=== PATIENT | female | born 1945 | race Caucasian/White ===

== ENCOUNTER 2019-07-04 08:54 | Outpatient (CLI) | payer MEDICARE, SELFPAY ==
[2019-07-04 09:08] LABS: Basophils Absolute Auto 0.1 K/mm3 (0.0-0.1); Basophils Percent Auto 0.3 % (0.2-1.2); Eosinophils Absolute Auto 0.5 K/mm3 (0-0.3); Eosinophils Percent Auto 2.5 % (0-4.4); Hematocrit 44.1 % (37.0-47.0); Hemoglobin 14.4 g/dL (12.0-15.0); Immature Granulocyte Absolute 0.06 K/mm3 (0.00-0.031); Immature Granulocyte Percent A 0.3 % (0-0.5); Lymphocytes Absolute Auto 12.85 K/mm3 (0.9-3.2); Lymphocytes Percent Auto 64.4 % (18.3-44.2); Mean Corpuscular HGB Conc 32.7 g/dl (32-36); Mean Corpuscular Hemoglobin 31.9 pg (26-34); Mean Corpuscular Volume 97.6 fl (80-100); Mean Platelet Volume 10.4 fl (7.4-10.4); Monocytes Absolute Auto 1.8 K/mm3 (0.1-0.6); Monocytes Percent Auto 9.2 % (2.6-8.5); Neutrophils Absolute Auto 4.6 K/mm3 (1.3-6.7); Neutrophils Percent Auto 23.3 % (45.5-73.1); Platelet Count Result 374 k/mm3 (150-375); Red Blood Count 4.52 M/mm3 (4.2-5.4); Red Cell Distribution Width 13.2 % (11.5-14.5)
[2019-07-04 09:15] LABS: Atypical Lymphocytes Present
[2019-07-04 11:01] LABS: Blood Urea Nitrogen 22 mg/dL (7-17); Calcium 10.2 mg/dL (8.4-10.2); Carbon Dioxide 24 mmol/L (22-30); Chloride 102 mmol/L (98-107); Estimated Glomerular Filt Rate > 60; Glucose 92 mg/dL (65-105); Lactate Dehydrogenase 374 U/L (313-618); Potassium 4.3 mmol/L (3.4-5.0); Sodium 141 mmol/L (137-145)
== END 2019-07-04 08:55 | disposition home or self-care (01) ==
LOC: ANHLAB 08:56
PROVIDERS: PCP Internal Medicine; Visit Provider Internal Medicine Hematology & Oncology
DX: R53.83 Other fatigue (principal)
CPT/HCPCS: 36415; 80048; 83615; 85025

== ENCOUNTER 2020-03-28 09:16 | Outpatient (CLI) | payer MEDICARE, SELFPAY ==
[2020-03-28 09:46] LABS: Basophils Absolute Auto 0.1 K/mm3 (0.0-0.1); Basophils Percent Auto 0.3 % (0.2-1.2); Eosinophils Absolute Auto 0.3 K/mm3 (0-0.3); Eosinophils Percent Auto 1.2 % (0-4.4); Hemoglobin 14.2 g/dL (12.0-15.0); Immature Granulocyte Absolute 0.04 K/mm3 (0.00-0.031); Immature Granulocyte Percent A 0.2 % (0-0.5); Lymphocytes Absolute Auto 15.18 K/mm3 (0.9-3.2); Lymphocytes Percent Auto 72.6 % (18.3-44.2); Mean Corpuscular Hemoglobin 32.7 pg (26-34); Mean Corpuscular Volume 99.1 fl (80-100); Mean Platelet Volume 10.4 fl (7.4-10.4); Monocytes Absolute Auto 1.6 K/mm3 (0.1-0.6); Monocytes Percent Auto 7.6 % (2.6-8.5); Neutrophils Absolute Auto 3.8 K/mm3 (1.3-6.7); Neutrophils Percent Auto 18.1 % (45.5-73.1); Platelet Count Result 392 k/mm3 (150-375); Red Blood Count 4.34 M/mm3 (4.2-5.4); Red Cell Distribution Width 13.2 % (11.5-14.5); White Blood Count 20.9 K/mm3 (4.5-10.0)
[2020-03-28 09:53] LABS: Atypical Lymphocytes Present
[2020-03-28 17:52] LABS: Alanine Aminotransferase 37 U/L (4-35); Albumin Level 4.3 g/dL (3.5-5.1); Alkaline Phosphatase 64 U/L (38-126); Anion Gap 10 mmol/L (8-16); Aspartate Amino Transferase 34 U/L (14-36); Bilirubin,Total 0.6 mg/dL (0.2-1.3); Blood Urea Nitrogen 18 mg/dL (7-17); Calcium 9.8 mg/dL (8.4-10.2); Carbon Dioxide 25 mmol/L (22-30); Chloride 106 mmol/L (98-107); Estimated Glomerular Filt Rate > 60; Glucose 80 mg/dL (65-105); Lactate Dehydrogenase 460 U/L (313-618); Potassium 4.6 mmol/L (3.4-5.0); Sodium 141 mmol/L (137-145)
== END 2020-03-28 09:17 | disposition home or self-care (01) ==
PROVIDERS: PCP Internal Medicine; Visit Provider Internal Medicine Hematology & Oncology
DX: C91.11 Chronic lymphocytic leukemia of B-cell type in remission (principal)
CPT/HCPCS: 36415; 80053; 83615; 85025

== ENCOUNTER 2021-01-15 09:40 | Outpatient (CLI) | payer MEDICARE, SELFPAY ==
[2021-01-15 09:56] LABS: Basophils Absolute Auto 0.1 K/mm3 (0.0-0.1); Basophils Percent Auto 0.4 % (0.2-1.2); Eosinophils Absolute Auto 0.4 K/mm3 (0-0.3); Eosinophils Percent Auto 1.7 % (0-4.4); Hematocrit 42.7 % (37.0-47.0); Hemoglobin 14.1 g/dL (12.0-15.0); Immature Granulocyte Absolute 0.06 K/mm3 (0.00-0.031); Immature Granulocyte Percent A 0.3 % (0-0.5); Lymphocytes Absolute Auto 15.11 K/mm3 (0.9-3.2); Lymphocytes Percent Auto 66.4 % (18.3-44.2); Mean Corpuscular Hemoglobin 32.4 pg (26-34); Mean Corpuscular Volume 98.2 fl (80-100); Mean Platelet Volume 9.9 fl (7.4-10.4); Monocytes Percent Auto 8.7 % (2.6-8.5); Neutrophils Absolute Auto 5.1 K/mm3 (1.3-6.7); Neutrophils Percent Auto 22.5 % (45.5-73.1); Platelet Count Result 383 k/mm3 (150-375); Red Blood Count 4.35 M/mm3 (4.2-5.4); Red Cell Distribution Width 13.3 % (11.5-14.5); White Blood Count 22.7 K/mm3 (4.5-10.0)
[2021-01-15 10:02] LABS: Atypical Lymphocytes Present
[2021-01-15 20:48] LABS: Alanine Aminotransferase 29 U/L (4-35); Albumin Level 4.2 g/dL (3.5-5.1); Alkaline Phosphatase 69 U/L (38-126); Anion Gap 8 mmol/L (8-16); Aspartate Amino Transferase 27 U/L (14-36); Bilirubin,Total 0.6 mg/dL (0.2-1.3); Blood Urea Nitrogen 19 mg/dL (7-17); Carbon Dioxide 24 mmol/L (22-30); Chloride 107 mmol/L (98-107); Estimated Glomerular Filt Rate > 60; Glucose 91 mg/dL (65-110); Lactate Dehydrogenase 393 U/L (313-618); Potassium 4.2 mmol/L (3.4-5.0); Sodium 139 mmol/L (137-145)
== END 2021-01-15 09:41 | disposition home or self-care (01) ==
PROVIDERS: PCP Internal Medicine; Visit Provider Internal Medicine Hematology & Oncology
DX: C91.10 Chronic lymphocytic leukemia of B-cell type not having achieved remission (principal)
CPT/HCPCS: 36415; 80053; 83615; 85025

== ENCOUNTER 2021-10-11 09:07 | Outpatient (CLI) | payer MEDICARE, SELFPAY ==
[2021-10-11 09:44] LABS: Basophils Absolute Auto 0.1 K/mm3 (0.0-0.1); Basophils Percent Auto 0.3 % (0.2-1.2); Eosinophils Absolute Auto 0.3 K/mm3 (0-0.3); Eosinophils Percent Auto 1.2 % (0-4.4); Hematocrit 40.3 % (37.0-47.0); Hemoglobin 12.9 g/dL (12.0-15.0); Immature Granulocyte Absolute 0.07 K/mm3 (0.00-0.031); Immature Granulocyte Percent A 0.3 % (0-0.5); Lymphocytes Absolute Auto 18.03 K/mm3 (0.9-3.2); Lymphocytes Percent Auto 67.7 % (18.3-44.2); Mean Corpuscular Hemoglobin 31.4 pg (26-34); Mean Corpuscular Volume 98.1 fl (80-100); Mean Platelet Volume 9.5 fl (7.4-10.4); Monocytes Percent Auto 11.2 % (2.6-8.5); Neutrophils Absolute Auto 5.2 K/mm3 (1.3-6.7); Neutrophils Percent Auto 19.3 % (45.5-73.1); Platelet Count Result 484 k/mm3 (150-375); Red Blood Count 4.11 M/mm3 (4.2-5.4); Red Cell Distribution Width 13.4 % (11.5-14.5); White Blood Count 26.6 K/mm3 (4.5-10.0)
[2021-10-11 11:30] LABS: Alanine Aminotransferase 17 U/L (6-35); Albumin Level 4.1 g/dL (3.5-5.1); Alkaline Phosphatase 77 U/L (38-126); Anion Gap 8 mmol/L (8-16); Aspartate Amino Transferase 25 U/L (14-36); Bilirubin,Total 0.4 mg/dL (0.2-1.3); Blood Urea Nitrogen 18 mg/dL (7-17); Calcium 10.2 mg/dL (8.4-10.2); Carbon Dioxide 26 mmol/L (22-30); Chloride 107 mmol/L (98-107); Estimated Glomerular Filt Rate > 60; Glucose 96 mg/dL (65-110); Lactate Dehydrogenase 352 U/L (313-618); Potassium 4.3 mmol/L (3.4-5.0); Sodium 141 mmol/L (137-145)
== END 2021-10-11 09:08 | disposition home or self-care (01) ==
LOC: ANHLAB 09:10
PROVIDERS: PCP Internal Medicine; Visit Provider Internal Medicine Hematology & Oncology
DX: C91.10 Chronic lymphocytic leukemia of B-cell type not having achieved remission (principal)
CPT/HCPCS: 36415; 80053; 83615; 85025

== ENCOUNTER 2021-10-21 11:28 | Outpatient (CLI) | payer MEDICARE, SELFPAY ==
--- NOTE | 2021-10-21 11:33 | ECG_ITS ---
Measurements Intervals [place] Rate: 95 P: 63 SD: 151 QRS: -47 QRSD: 95 T: 64 QT: 331 QTc: 418 Interpretive Statements SINUS RHYTHM LEFT ANTERIOR FASCICULAR BLOCK [QRS AXIS <= -45, QR IN I, RS IN II] LEFT VENTRICULAR HYPERTROPHY AND ST-T CHANGE [VOLTAGE CRITERIA PLUS ST/T ABNORMALITY] NO PREVIOUS ECG AVAILABLE FOR COMPARISON Electronically Signed On 10-21-2021 16:29:52 CDT by Dawood Sen M.D.
[2021-10-21 12:11] LABS: INR 1.1; Partial Thromboplastin Time 26.9 SECONDS (22.3-36.8); Prothrombin Time 13.4 Seconds (11.1-14.7)
== END 2021-10-21 11:29 | disposition home or self-care (01) ==
LOC: ANHSURGERY 11:31
PROVIDERS: PCP Internal Medicine; Visit Provider Surgery
DX: C91.10 Chronic lymphocytic leukemia of B-cell type not having achieved remission (principal); I10 Essential (primary) hypertension; Z01.818 Encounter for other preprocedural examination; I44.4 Left anterior fascicular block
CPT/HCPCS: 36415; 85610; 85730; 93005

== ENCOUNTER 2021-10-23 01:29 | Day surgery (SDC) | payer MEDICARE, SELFPAY ==
[2021-10-21 08:58] VITALS: BMI 36.3
--- NOTE | 2021-10-21 09:15 | PC.NURSE ---
Report to the Outpatient Waiting Room, entrance under the green pavilion located off [facility], at time __1:00PM on date _10/23/21 . OR Time: _3:00PM . - You and your visitor will be asked a series of questions to screen for COVID 19 for your protection. - Only one visitor is allowed at this time. - The patient visitor is requested to leave or wait in car when not with patient. - A mask is required within the hospital. Patients may have clear liquids (water, carbonated beverages, clear teas, apple juice) until 3 hours prior to surgery with a maximum of 20 ounces. - No food from midnight until time of surgery - Infants may have breast milk until 4 hours before surgery, formula 6 hours prior to surgery. - Children will be allowed to drink immediately following surgery. If applicable, please bring a bottle or sippy cup to assist with drinking. Juice, water, soda, and popsicles are readily available. For infants on formula, please bring formula the day of surgery. Pacifiers are allowed. Take the following medications with a SIP of water the morning of surgery: ____TRAMADOL NEEDED Medications to discontinue per physician ____HOLD VITAMINS/SUPPLEMENTS 3 DAYS PRE-OP Date to take last dose___10/20/21 Please no make-up, nail mongolian, hairspray, perfume, deodorant, or body powder the day of surgery. No jewelry (including any body piercings) or valuables the day of surgery, leave them at home. Please take a shower or bath the night before, or the morning of, surgery with an antibacterial soap. Wear comfortable, loose fitting clothing. Children are encouraged to wear pajamas. - Jewelry must be removed prior to entering the operating room. Rings and piercings that are not removed may be cut off. - The hospital will not accept responsibility for valuables. - Please leave all valuables, including medications, at home the day of surgery. If you are going home after surgery, a licensed patrol driver must drive you home. - NO public transportation without another adult. - We recommend that an adult stay with you for 24 hours following discharge. - We also recommend that you do not drive, make important decision, drink alcoholic beverages, or take any drugs that were not prescribed by your health care provider for at least 24 hours after your discharge time. For Pediatric surgeries, we recommend two adults accompany the child home (only one inside the building at this time). Follow any additional instructions given to you from your surgeon. If you or anyone in your household have experienced Covid symptoms in the past week, please notify your surgeon or the nurse liaison at the phone number below for possible testing. Telephone instructions given to __PATIENT and asked if any additional questions and then verbalized understanding. Patient advised to call surgeon office or pre surgery nurse liaison [phone] if any additional questions.
--- NOTE | 2021-10-22 09:28 | WPDANESEPPF ---
Anes - Initial Pre Proc Eval Procedure: Operation Date: 10/23/21 15:00 Proposed Procedures p Insertion Rufina Cath - Ashlee Moon MD Date/Time: 10/22/21 09:28 Surgeon: Ashlee Moon MD Pre Op Diagnosis: Chronic Lymphocytic Leukemia Patient Data Age: 76 Gender: F Height: 1.63 m Weight: 96 kg Allergies Allergy/AdvReac Type Severity Reaction Status Date / Time No Known Allergies Allergy Verified 10/23/21 13:11 Home Medications Medication Instructions Recorded Confirmed Type acetaminophen 650 mg 1,300 mg PO Q12H PRN Pain 10/21/21 10/23/21 History tablet,extended release aspirin 81 mg tablet,delayed 81 mg PO DAILY 10/21/21 10/23/21 History release (Adult Low Dose Aspirin) cholecalciferol (vitamin D3) 100 100 mcg PO DAILY 10/21/21 10/23/21 History mcg (4,000 unit) tablet cyanocobalamin (vitamin B-12) 2,500 mcg PO DAILY 10/21/21 10/23/21 History 2,500 mcg tablet losartan 100 mg tablet 1 tablet PO QAM 10/21/21 10/23/21 History meloxicam 15 mg tablet 1 tablet PO QACLUNCH PRN Pain 10/21/21 10/23/21 History tramadol 50 mg tablet 1 tablet PO Q6-8H PRN Pain 10/21/21 10/23/21 History Patient hx anesthesia problems: none Family hx anesthesia problems: none Results Review: All pre-operative results and documents have been reviewed as part of the pre-operative evaluation. [facility] Past Medical History Medical History CLL (chronic lymphocytic leukemia) Surgical History Surgical History History of tubal ligation Social History Social History Smoking packs per day: 1 Smoking cigarettes per day: 20.0 Years smoked: 55 Smoking pack-years: 55.00 Smoking status: Current every day smoker Tobacco type: cigarettes Additional smoking assessment comments: CUTTING BACK TO 4 CIG/DAY CURRENTLY Substance use: never Additional living arrangements comments: HUSB Spiritual care concerns: No Anes - Eval Final PreProcedure Day of Procedure 10/22/21 09:28 Patient weight: obese Heart: regular rate and rhythm Lungs: clear to auscultation Airway: Mallampati scale class II Neurological: alert and oriented Last oral intake: >/= 8 hours ASA classification: III Emergent: no Anesthetic plan: proceed Anesthesia type and monitoring: general GIVS and standard monitoring Results Review: All pre-operative results and documents have been reviewed as part of the pre-operative evaluation. Informed Consent: The patient's anesthetic plan and its attendant risks and benefits were discussed with the patient/family/POA. Questions were solicited and answers provided to the satisfaction of the patient/family/POA.
--- NOTE | ~2021-10-23 | XR_ITS ---
EXAMINATION: XR fl guide central line place DATE: 10/23/2021 14:52 INDICATION: Port placement. TECHNIQUE: 3 intraoperative fluoroscopic views of the chest were obtained. I was not present. Fluoros copy exposure time was 20 seconds. COMPARISON: Chest single view 10/23/2021 FINDINGS: There is a right internal jugular port with tip in right atrium. IMPRESSION: 1. Port tip in right atrium. Reviewed, dictated and finalized at location B.
--- NOTE | ~2021-10-23 | XR_ITS ---
EXAMINATION: XR chest port-a-cath/central DATE: 10/23/2021 15:06 INDICATION: Port placement. TECHNIQUE: A single frontal view of the chest was obtained. COMPARISON: Chest CT 03/30/2017, chest 2 views 08/26/2004 FINDINGS: There is no pneumonia, pleural effusion, pneumothorax. There is a right internal jugular po rt with tip in superior vena cava. IMPRESSION: 1. Port tip in superior vena cava. Reviewed, dictated and finalized at location B.
--- NOTE | 2021-10-23 12:54 | PM.IMHP ---
H&P: HPI History of Present Illness Date/Time: 10/23/21 12:54 Chief Complaint: CLL Narrative: Pt is a 76 y/o F presenting for VAD placement in anticipation of chemotherapy for worsening CLL. Pt dx'd in 2017 but recently c increased symptomatology and size of lymphadenopathy. Pt denies any previous central venous catheterization. Pt reports worse lymphadenopathy located in L neck, axilla. Review of Systems Review of Systems: All systems reviewed & are unremarkable except as noted in HPI and below PMFSH Past Medical History Medical History CLL (chronic lymphocytic leukemia) Surgical History Surgical History History of tubal ligation Social History Social History Smoking packs per day: 1 Smoking cigarettes per day: 20.0 Years smoked: 55 Smoking pack-years: 55.00 Smoking status: Current every day smoker Tobacco type: cigarettes Additional smoking assessment comments: CUTTING BACK TO 4 CIG/DAY CURRENTLY Substance use: never Living arrangements: with family Additional living arrangements comments: HUSB Spiritual care concerns: No Meds Home Medications and Allergies Home Medications Medication Instructions Recorded Confirmed Type acetaminophen 650 mg 1,300 mg PO Q12H PRN Pain 10/21/21 10/21/21 History tablet,extended release aspirin 81 mg tablet,delayed 81 mg PO DAILY 10/21/21 10/21/21 History release (Adult Low Dose Aspirin) cholecalciferol (vitamin D3) 100 100 mcg PO DAILY 10/21/21 10/21/21 History mcg (4,000 unit) tablet cyanocobalamin (vitamin B-12) 2,500 mcg PO DAILY 10/21/21 10/21/21 History 2,500 mcg tablet losartan 100 mg tablet 1 tablet PO QAM 10/21/21 10/21/21 History meloxicam 15 mg tablet 1 tablet PO QACLUNCH PRN Pain 10/21/21 10/21/21 History tramadol 50 mg tablet 1 tablet PO Q6-8H PRN Pain 10/21/21 10/21/21 History Allergies Allergy/AdvReac Type Severity Reaction Status Date / Time No Known Allergies Allergy Verified 10/21/21 08:53 Exam Const: General: cooperative, comfortable, no acute distress and ill appearing Orientation/consciousness: patient oriented x3 HENMT: Head: normal to inspection Neck: Neck: normal visual inspection, full ROM and lymphadenopathy Chest: Chest palpation & inspection: normal inspection of the chest Resp: Auscultation: clear to auscultation bilaterally Cardio: Rate: regular rate Rhythm: regular rhythm GI: Inspection: normal to inspection GI Palp: No abdominal tenderness and Yes Soft to palpation Assessment and Plan Assessment and plan (1) CLL (chronic lymphocytic leukemia): Code(s): C91.10 - Chronic lymphocytic leukemia of B-cell type not having achieved remission Status: Acute Assessment and Plan: will place VAD for chemo access
--- NOTE | 2021-10-23 12:58 | WPDHPUPDATE1 ---
History and Physical Update Update Date/Time: 10/23/21 12:58 History and Physical has been reviewed, including an updated exam of the patient. There are NO changes in the patient's condition. Risks, benefits, and alternatives have been discussed and questions answered. Patient agrees to proceed with procedure.
[2021-10-23 13:02] VITALS: BP 115/57; PULSE 88; RESP 16; TEMP 37; O2SAT 96
[2021-10-23] MEDS: LACTATED RINGERS 1,000 ML 30 ML IV CONT (13:20)
[2021-10-23] MEDS: KETOROLAC 15 MG/ML VIAL (*BKC) IV PUSH (13:25)
[2021-10-23] MEDS: BUPIVACAINE HCL 0.5% PF 30 ML VIAL INFILTRATE (14:14)
[2021-10-23] MEDS: ceFAZolin 2 GM/D5W 50 ML 2 GM/50 ML BAG IVPB (14:14)
[2021-10-23] MEDS: HEPARIN SODIUM, PORCINE 10,000 UNITS/10 ML VIAL 4000 UNITS IV PUSH (14:14)
[2021-10-23] MEDS: HEPARIN SODIUM 5,000 UNITS/ML VIAL 5000 UNITS IRRIGATION (14:14)
--- NOTE | 2021-10-23 14:47 | W.PM.PROC2 ---
Procedure Note - Detailed Date of Procedure 10/23/21 Pre-op Diagnosis Chronic Lymphocytic Leukemia Post-op Diagnosis Same Procedure Performed placement of right internal jugular venous access device under both ultrasound and fluroscopic guidance Surgeon Ashlee Moon MD Anesthesia MAC and Local Indications 76 y/o F c CLL needing access for chemotx Findings 1st stick RIJ under U/S guidance Description of Procedure Patient was brought into the operating room and placed in the supine position. After adequate induction of mac anesthesia, the patient was prepped and draped in normal sterile fashion. Time-out was then done to verify the patient's identity, as well as the procedure being performed. I used the ultrasound to gain access into the right internal jugular vein. Once access was gained, I placed the guidewire in the vein and confirmed proper positioning using fluoroscopy. I then locally anesthetized an area in the right chest. I then made an incision including making a subcutaneous pocket inferiorly to allow placement of the port itself. I proceeded to tunnel the catheter from the chest to the right neck insertion site. I then placed a dilating sheath over the guidewire into the right internal jugular vein via sterile Seldinger technique. This was once again done and confirmed via fluoroscopic guidance. I then removed the dilator and the guidewire, now just leaving the sheath in the vein. I then fed the previously flushed catheter into the right internal jugular vein under fluoroscopic guidance. At approximately 25 cm, the catheter was noted to be near the atrial caval junction. I then peeled away the sheath, now just leaving the catheter in the vein. I then was able to easily draw and flush from the catheter. The catheter was cut to fit and attached to the port itself. The port was placed into the previously made subcutaneous pocket and sutured in with 0 Ethibond suture. Final fluoroscopic view showed the termination of the catheter at the atrial caval junction with a nice smooth curvature back to the port itself. I was able to gain access to the port with a Herring needle and was able to easily draw and flush from the port. I then flushed 4 cc of a final heparin flush into the port. The incision was closed with 3 0 Vicryl suture in the subcutaneous tissue and the skin was closed with 4 O Monocryl subcuticular suture. Dermabond was then placed on wound. The patient tolerated the procedure well and will be sent to the recovery room in stable condition. Implants RIJ VAD Estimated Blood Loss 10 Pathology None sent Complications No immediate complications Condition Stable Disposition PACU [facility] Billing Surgery - Charge Forward: Surgery Billing
[2021-10-23 14:53] VITALS: BP 104/44; PULSE 80; RESP 14; O2SAT 98
[2021-10-23 15:23] VITALS: BP 106/85; PULSE 68; RESP 16
[2021-10-23 15:53] VITALS: BP 106/61; PULSE 66; RESP 16
== END 2021-10-23 16:00 | disposition home or self-care (01) ==
PROVIDERS: PCP Internal Medicine; Visit Provider Surgery
PROC: (CPT 36561; principal; 2021-10-23 15:00)
DX: C91.10 Chronic lymphocytic leukemia of B-cell type not having achieved remission (principal); F17.210 Nicotine dependence, cigarettes, uncomplicated; Z79.82 Long term (current) use of aspirin; E66.9 Obesity, unspecified; Z68.35 Body mass index [BMI] 35.0-35.9, adult
CPT/HCPCS: 36561; 36415; 77001; 85610; 85730; 93005; C1788; J0690; J1644; J1885; J2704; J3010; J7030; J7120

== ENCOUNTER 2022-03-07 14:16 | Outpatient (CLI) | payer MEDICARE, MEDICAID, SELFPAY ==
--- NOTE | 2022-03-07 | ECG_ITS ---
Measurements Intervals [place] Rate: 119 P: 54 NM: 120 QRS: -57 QRSD: 92 T: 76 QT: 306 QTc: 431 Interpretive Statements SINUS TACHYCARDIA PATTERN CONSISTENT WITH PULMONARY DISEASE INCOMPLETE RIGHT BUNDLE BRANCH BLOCK LEFT ANTERIOR FASCICULAR BLOCK NONSPECIFIC ST & T-WAVE ABNORMALITY ABNORMAL ECG COMPARED TO ECG 10/21/2021 11:53:12 HEART RATE HAS INCREASED Electronically Signed On 03-07-2022 17:05:09 CDT by Mynor Pina M.D.
--- NOTE | ~2022-03-07 | XR_ITS ---
XR chest 2V 03/07/2022 16:24 Indication: Tachycardia Procedure: 2 view chest Comparison: 10/23/2021 Findings: Heart size normal. Portacatheter tip in the SVC. Heart size normal. No focal air space dise ase, pulmonary edema, pleural effusion or suspected pneumothorax. Impression: 1: No acute cardiopulmonary disease. Reviewed, dictated and finalized at location B. Impression: 1: No acute cardiopulmonary disease.
--- NOTE | 2022-03-08 | ECHO_ITS ---
Patient Info Name: Cassandra Valdivia Age: 77 years : 1945 Gender: Female Ht: 64 in Wt: 187 lbs BSA: 1.99 m2 HR: 102 bpm BP: 108 / 70 mmHg Technical Quality: Fair Exam Date: 03/07/2022 3:35 PM Exam Location: [facility] Patient Status: Outpatient Admit Date: 03/07/2022 Staff Ordering Physician: Sj Mcmanus MD Employee Relations Director: Olivia Alvarez RDCS Attending Provider: Sj Mcmanus MD Referring Physician: Mareitta SARABIA; Exam Type: CA echo doppler color flow Study Info Indications - TACHYCARDIA SOB Complete two-dimensional, color flow and Doppler transthoracic echocardiogram is performed. Summary 1. Complete two-dimensional, color flow and Doppler transthoracic echocardiogram is performed. 2. Left ventricular chamber dimension is normal. 3. Left ventricular systolic function is normal, estimated at 60-65%. 4. Left ventricular septal wall motion is abnormal with septal motion related to bundle branch block. 5. The left ventricular diastolic function is grade I diastolic dysfunction. 6. E/e' 7 is not elevated. 7. There is mild aortic valve sclerosis. 8. No pulmonary hypertension, estimated pulmonary arterial systolic pressure is 31 mmHg. Left Ventricle E/e' 7 is not elevated. Left ventricular chamber dimension is normal. Left ventricular systolic function is normal, estimated at 60-65%. Left ventricular septal wall motion is abnormal with septal motion related to bundle branch block. The left ventricular diastolic function is grade I diastolic dysfunction. Right Ventricle Right ventricular chamber dimension is normal. Right ventricular systolic function is normal. Left Atria Left atrial chamber dimension is normal. Right Atria Right atrial chamber dimension is normal. Aortic Valve The aortic valve is trileaflet. There is mild aortic valve sclerosis. There is no aortic valve stenosis. There is no aortic valve regurgitation. Pulmonic Valve There is no pulmonic regurgitation. Mitral Valve There is no mitral valve stenosis. There is no mitral valve regurgitation. Tricuspid Valve There is no tricuspid valve regurgitation. No pulmonary hypertension, estimated pulmonary arterial systolic pressure is 31 mmHg. Pericardium/Pleural There is no pericardial effusion. Inferior Vena Cava Normal inferior vena cava with >50% collapse upon inspiration consistent with normal right atrial pressure, 5 mmHg. Aorta The aortic root size at the sinus of Valsalva is normal. Left Ventricular Outflow Tract Name Value Normal LVOT 2D LVOT Diameter 2.0 cm LVOT Doppler LVOT Peak Gradient 6 mmHg LVOT Mean Gradient 3 mmHg LVOT VTI 19 cm LVOT VTI/AV VTI Ratio 0.8 LVOT Stroke Volume 58 ml LVOT CO 15.1 l/min LVOT CI 7.6 l/min/m2 Pulmonic Valve Name Value
== END 2022-03-07 14:17 | disposition home or self-care (01) ==
PROVIDERS: PCP Family Medicine; Visit Provider Internal Medicine Hematology & Oncology
DX: R00.0 Tachycardia, unspecified (principal); R06.02 Shortness of breath; I35.8 Other nonrheumatic aortic valve disorders; I44.7 Left bundle-branch block, unspecified; R94.31 Abnormal electrocardiogram [ECG] [EKG]
CPT/HCPCS: 71046; 93005; 93306

== ENCOUNTER 2022-03-30 20:27 | Inpatient (IN) | payer MEDICARE, MEDICAID, SELFPAY ==
[2022-03-30] VITALS (19 sets, daily range): BP systolic 97–138; BP diastolic 46–65; PULSE 91–114; RESP 20–32; TEMP 37.4; O2SAT 95–98
--- NOTE | ~2022-03-30 | US_ITS ---
EXAMINATION: US biopsy liver DATE: 04/01/2022 14:12 INDICATION: Multiple liver masses concerning for metastatic disease. TECHNIQUE: The procedure including the risks and benefits was discussed with the patient. Risks discu ssed included bleeding and infection. The patient understood the risks and agreed to proceed. The sk in overlying the anterior liver was prepped and draped in usual sterile fashion. Anesthetic was admi nistered with 1% lidocaine subcutaneously. An 18 gauge core biopsy needle was advanced under continu ous ultrasound observation to the lesion of interest. 4 core biopsy specimens were obtained. The ne edle was removed and the entry site was cleaned and dressed. Post procedure ultrasound demonstrated no hemorrhage. FINDINGS: Ultrasound images demonstrate the needle was advanced into a 2.7 cm bilobed mass in the med ial segment of the right hepatic lobe. IMPRESSION: 1. Successful Ultrasound-guided biopsy of 2.7 cm hypoechoic liver mass. Reviewed, dictated and finalized at location A. ITURE SANDER
--- NOTE | ~2022-03-30 | CT_ITS ---
EXAMINATION: CTA chest PE abdomen pel DATE: 03/30/2022 22:06 INDICATION: Shortness of breath. Left lower quadrant abdominal pain. Leukemia. TECHNIQUE: Computed tomography angiography (CTA) of the chest was performed with 100 mL Omnipaque-350 intravenous contrast timed to evaluate the pulmonary arteries. Coronal maximum intensity projection 3D-reconstructions were created by the technologist. Computed tomography (CT) of the abdomen and pelv is was performed with intravenous contrast. Automated exposure control and iterative reconstruction t echnique were employed. The dose-length product was 1265.91 mGy-cm. COMPARISON: CT 04/07/2017 FINDINGS: CTA chest: There is mild atelectasis bilaterally. No pleural effusion. There is a right internal jugu lar port with tip at superior cavoatrial junction. The heart size is normal. There are coronary arter y calcifications. No pericardial fusion. There are acute pulmonary emboli in all right lung lobes inc luding in distal right main pulmonary artery. CT abdomen and pelvis: There are cysts in the liver measuring up to 5.6 cm. There are greater than 10 hypodense masses in the liver measuring up to 3.0 cm. There are 3 masses in the spleen measuring up to 1.7 cm. The gallbladder is normal. Calcifications in the pancreas are consistent with old granulom atous disease. The adrenal glands are normal. There are cysts in the kidneys measuring up to 10 mm on the right. There is mild left hydronephrosis and hydroureter. Pelvic floor dysfunction is noted. The re is thickening of the endometrial complex to 11 mm. There is diverticulosis of the colon without ev idence of diverticulitis. The appendix is normal. There is irregular wall thickening of the right col on and ileocecal valve. There is moderate stenosis of celiac axis and superior mesenteric artery. The re is ileocolic lymphadenopathy with the largest node measuring 4.9 x 3.0 cm. There is a lipoma in le ft posterior thigh. There is lumbar dextroscoliosis and severe spondylosis. IMPRESSION: 1. Acute right-sided pulmonary emboli. 2. Irregular wall thickening of the right colon and ileocecal valve, consistent with primary adenocar cinoma. 3. Ileocolic lymphadenopathy and liver masses, consistent with metastatic disease. 4. Peripheral splenic masses measuring up to 1.7 cm, likely infarcts. 5. Mild left hydronephrosis and hydroureter. 6. Thickening of the endometrial complex. The differential diagnosis includes endometrial hyperplasia , polyp, and carcinoma. Reviewed, dictated and finalized at location A. CREW SUPERVISOR IMPRESSION: 1. Acute right-sided pulmonary emboli. 2. Irregular wall thickening of the right colon and ileocecal valve, consistent with primary adenocarcinoma. 3. Ileocolic lymphadenopathy and liver masses, consistent with metastatic disea se. 4. Peripheral splenic masses measuring up to 1.7 cm, likely infarcts. 5. Mild left hydronephrosis and hydroureter. 6. Thickening of the endometrial complex. The differential diagnosis includes e ndometrial hyperplasia, polyp, and carcinoma.
--- NOTE | ~2022-03-30 | US_ITS ---
US renal BI 04/01/2022 11:26 Procedure: Realtime transabdominal ultrasound of the kidneys and bladder. Indication: Left hydronephrosis Comparison: CT dated 03/30/2022 Findings: Renal echotexture is normal bilaterally without hydronephrosis, contour deforming mass or r enal calculus. The right kidney measures 10.8 cm and left kidney measures 10.4 cm. Bladder within no rmal limits. Impression: 1: Unremarkable renal ultrasound. No stones, masses or hydronephrosis. Reviewed, dictated and finalized at location B. [employer] P[employer]GAR Impression: 1: Unremarkable renal ultrasound. No stones, masses or hydronephrosis.
--- NOTE | ~2022-03-30 | US_ITS ---
EXAMINATION: US venous doppler [facility] DATE: 03/31/2022 09:58 INDICATION: Acute pulmonary emboli. TECHNIQUE: Grayscale ultrasound images without and with compression and Doppler ultrasound images of the bilateral lower extremity veins were obtained. COMPARISON: None. FINDINGS: The visualized portions of right profunda (deep) femoral vein, femoral vein, popliteal vein, and post erior tibial veins are patent. There is thrombus in right common femoral and peroneal veins. There is thrombus in the left common femoral vein, profunda femoral vein, femoral vein, popliteal vei n, and peroneal and posterior tibial veins IMPRESSION: 1. Deep vein thrombosis in the lower limbs, left worse than right. Reviewed, dictated and finalized at location A. VISITS NURSE
--- NOTE | 2022-03-30 20:34 | ECG_ITS ---
Measurements Intervals [place] Rate: 107 P: 41 WI: 116 QRS: -48 QRSD: 97 T: 82 QT: 244 QTc: 326 Interpretive Statements SINUS TACHYCARDIA WITH SHORT WI INTERVAL LOW QRS VOLTAGE IN PRECORDIAL LEADS INCOMPLETE RIGHT BUNDLE BRANCH BLOCK LEFT ANTERIOR FASCICULAR BLOCK BORDERLINE ST-T WAVE ABNORMALITY- HIGH LATERAL LEADS BASELINE ARTIFACT- I, II, V5 ABNORMAL ECG COMPARED TO ECG 03/07/2022 14:58:23 NO SIGNIFICANT CHANGES Electronically Signed On 04-01-2022 13:54:20 CRANBERRY GROWER by Brown Padilla D.O.
[2022-03-30 21:02] LABS: Basophils Percent Auto 0.4 % (0.2-1.2); Eosinophils Absolute Auto 0.1 K/mm3 (0-0.3); Hematocrit 30.1 % (37.0-47.0); Hemoglobin 9.6 g/dL (12.0-15.0); Immature Granulocyte Absolute 0.06 K/mm3 (0.00-0.031); Immature Granulocyte Percent A 0.7 % (0-0.5); Lymphocytes Absolute Auto 0.32 K/mm3 (0.9-3.2); Lymphocytes Percent Auto 3.9 % (18.3-44.2); Mean Corpuscular HGB Conc 31.9 g/dl (32-36); Mean Corpuscular Hemoglobin 30.4 pg (26-34); Mean Corpuscular Volume 95.3 fl (80-100); Mean Platelet Volume 9.1 fl (7.4-10.4); Monocytes Percent Auto 0.2 % (2.6-8.5); Neutrophils Absolute Auto 7.6 K/mm3 (1.3-6.7); Neutrophils Percent Auto 93.8 % (45.5-73.1); Platelet Count Result 367 k/mm3 (150-375); Red Blood Count 3.16 M/mm3 (4.2-5.4); Red Cell Distribution Width 14.5 % (11.5-14.5); White Blood Count 8.1 K/mm3 (4.5-10.0)
[2022-03-30 21:13] LABS: Ovalocytes 1+ (NORMAL); Platelet Estimate Adequate (Adequate); Schistocytes None Seen (NORMAL)
[2022-03-30 21:21] LABS: Alkaline Phosphatase 91 U/L (38-126); Anion Gap 11 mmol/L (8-16); Aspartate Amino Transferase 32 U/L (14-36); Bilirubin,Total 0.9 mg/dL (0.2-1.3); Blood Urea Nitrogen 15 mg/dL (7-17); Calcium 8.2 mg/dL (8.4-10.2); Carbon Dioxide 17 mmol/L (22-30); Chloride 108 mmol/L (98-107); Estimated Glomerular Filt Rate 34; Glucose 126 mg/dL (65-110); Lipase 36 U/L (23-300); Potassium 2.9 mmol/L (3.4-5.0); Sodium 136 mmol/L (137-145)
[2022-03-30 21:29] LABS: Alanine Aminotransferase 31 U/L (6-35)
[2022-03-30 21:43] LABS: Appearance Urine Clear (Clear); Bilirubin Urine Negative (Negative); Blood Urine 2+ (Negative); Color Urine Yellow (Yellow); Glucose Urine UA Negative (Negative); Ketones Urine Trace mg/dL (Negative); Leukocyte Esterase Ur 1+ LEU/UL (Negative); Nitrate Urine Positive (Negative); Protein Urine 2+ mg/dL (Negative)
[2022-03-30 21:46] LABS: Influenza A QL RT-PCR Negative (Negative); Influenza B QL RT-PCR Negative (Negative); SARS-CoV-2 RNA PCR Negative
[2022-03-30 21:48] LABS: Bacteria Urine Trace /hpf; Mucus Urine Rare /lpf; RBC Urine 21-50 /hpf (0-2); Squamous Epithelial Cell Urine Rare /hpf (Few); WBC Urine 21-30 /hpf
[2022-03-30 21:49] LABS: Add Urine Microscopic? YES
--- NOTE | 2022-03-30 21:57 | ED.GENADULT ---
HPI - General Adult General Chief complaint: Nausea/Vomiting/Diarrhea <Glenn Landa MD - Last Filed: 03/31/22 21:40> Stated complaint: n/v gen weakness, fever <Glenn Landa MD - Last Filed: 03/31/22 21:40> Time Seen by Provider: 03/30/22 22:34 <Glenn Landa MD - Last Filed: 03/31/22 21:40> History of Present Illness HPI narrative: 77-year-old female with history of leukemia follows up with Dr. Mcmanus. Patient states her last chemo treatment was March 04. Patient states over the last few days she has had increasing fatigue. Patient does complain of shortness of breath as well. Patient states that the shortness of breath is intermittent but is worsened with exertion. Patient states she has not been running any fevers at home. Patient denies any chest pain. Patient denies any associated nausea vomiting or diarrhea. Patient denies any pain with urination. <Glenn Landa MD - Last Filed: 03/31/22 21:40> Related Data Home medications: Home Medications Medication Instructions Recorded Confirmed acetaminophen 650 mg 1,300 mg PO Q12H PRN Pain 10/21/21 03/31/22 tablet,extended release aspirin 81 mg tablet,delayed 81 mg PO DAILY 10/21/21 03/31/22 release (Adult Low Dose Aspirin) cholecalciferol (vitamin D3) 100 100 mcg PO DAILY 10/21/21 03/31/22 mcg (4,000 unit) tablet cyanocobalamin (vitamin B-12) 2,500 mcg PO DAILY 10/21/21 03/31/22 2,500 mcg tablet meloxicam 15 mg tablet 1 tablet PO QACLUNCH PRN Pain 10/21/21 03/31/22 tramadol 50 mg tablet 1 tablet PO Q6-8H PRN Pain 10/21/21 03/31/22 <Glenn Landa MD - Last Filed: 03/31/22 21:40> Allergies/adverse reactions: Allergies Allergy/AdvReac Type Severity Reaction Status Date / Time No Known Allergies Allergy Verified 02/05/22 12:22 <Glenn Landa MD - Last Filed: 03/31/22 21:40> Review of Systems Review of Systems: CONSTITUTIONAL: Generalized weakness EYES: Denies visual changes, redness, or discharge. ENT: Denies rhinorrhea, congestion, sore throat, or otalgia. CARDIOVASCULAR: Denies chest pain, palpitations, or edema. RESPIRATORY: Intermittent shortness of breath GASTROINTESTINAL: Denies abdominal pain, nausea, vomiting, or diarrhea. GENITOURINARY: Denies dysuria or hematuria. SKIN: Denies rash or itching. MUSCULOSKELETAL: Denies back pain, joint pain, or myalgia. NEUROLOGIC: Denies headache, numbness, or weakness. <Glenn Landa MD - Last Filed: 03/31/22 21:40> [facility] Past Medical History Medical History: Medical History CLL (chronic lymphocytic leukemia) Hypertension <Glenn Landa MD - Last Filed: 03/31/22 21:40> Surgical History Surgical History: Surgical History History of tubal ligation <Glenn Landa MD - Last Filed: 03/31/22 21:40> Family History Family History: Family History Mother Hypertension Father Asthma Sibling Hypertension Heart disease <Glenn Landa MD - Last Filed: 03/31/22 21:40> Social History Social History: Social History Years smoked: 55 Smoking status: Current every day smoker Tobacco type: cigarettes Alcohol intake: never Substance use: never Substance use type: does not use Lack of Transportation: No Lack of Food: Never True Current Housing: I Have Housing Concerned About Future Housing: No Difficulty Paying Gas/Electric Bills: No Difficulty Paying for Meds: No Currently Unemployed: No Education: High School Diploma/GED Difficulty w/ Childcare or Family Care: No Additional living arrangements comments: [facility] Gender identity (if verbalized by the patient): Female Spiritual care concerns: No <Glenn Landa MD - Last Filed: 03/31/22 21:4
[2022-03-30] MEDS: POTASSIUM CHLORIDE 20 MEQ PACKET (FOR LIQUID) 40 MEQ PO (22:07)
[2022-03-30] MEDS: SODIUM CHLORIDE 0.9% IV 1,000 ML 999 ML IV CONT (22:10)
[2022-03-30] MEDS: KCL 20 MEQ/SW 100 ML 100 ML 50 MEQ IVPB (22:11)
[2022-03-31] VITALS (16 sets, daily range): BP systolic 100–112; BP diastolic 48–73; PULSE 56–93; RESP 16–22; TEMP 35.7–36.8; O2SAT 96–99; BMI 32.6
[2022-03-31] MEDS: LACTATED RINGERS 1,000 ML 999 ML IV CONT (00:09)
--- NOTE | 2022-03-31 01:22 | PM.IMHP ---
H&P: HPI History of Present Illness Date/Time: 03/31/22 01:22 Chief Complaint: Dyspnea Narrative: Patient is a 77-year-old female with past medical history of CLL on chemotherapy, essential hypertension presents to ED with complaints of dyspnea. Patient states she has had dyspnea for several months on and off, now her dyspnea significant enough to bring into the ED. She feels that she takes more breaks when walking because of getting short of breath. She notices this the most when she is walking her dog. She has complaints of dyspnea and had her dose of Rituxan chemotherapy held on 03/04, subsequently had echocardiogram 03/07 showing grade 1 diastolic dysfunction otherwise normal EF. In the ED: CTA chest abdomen pelvis consistent with right pulmonary embolism. She was tachypneic but otherwise breathing comfortably on room air.. She has been started on Eliquis. For the UTI she has been started on Rocephin. Patient has hypokalemia 2.9 and given 20 mEq IV potassium chloride and PO 40 mEq in the ED. with the hypokalemia, UTI, acute PE patient be admitted for observation. Review of Systems Review of Systems: Constitutional: No Fever, No Chills, No Night Sweats, endorses fatigue ENT/Mouth: No Hearing Changes, No Ear Pain, No Nasal Congestion, No Sinus Pain, No Hoarseness, No sore throat, No Rhinorrhea, No Swallowing Difficulty Eyes: No Eye Pain, No Redness, No Vision Changes Cardiovascular: No Chest Pain, No Palpitations, No Dyspnea on Exertion, No Orthopnea, No Claudication, No Edema Respiratory: Endorses shortness of breath Gastrointestinal: No Nausea, No Vomiting, No Diarrhea, No Constipation, No Abdominal Pain, No Heartburn, No Hematochezia, No Melena Genitourinary: No Dysuria, No Urinary Frequency, No Hematuria, No Urinary Incontinence, No Urgency Musculoskeletal: No Arthralgias, No Myalgias, No Joint Swelling, No Joint Stiffness, No Back Pain Skin: No Skin Lesions, No Pruritis, No Hair Changes Neuro: No Weakness, No Numbness, No Paresthesias, No Loss of Consciousness, No Syncope, No Dizziness, No Headache Psych: No Anxiety/Panic, No Depression, No Insomnia Heme: No Bruising, No Bleeding Lymph: No Adenopathy Endocrine: No Polyuria, No Polydipsia, No Temperature Intolerance PMFSH Past Medical History Medical History CLL (chronic lymphocytic leukemia) Hypertension Surgical History Surgical History History of tubal ligation Family History Family History Mother Hypertension Father Asthma Sibling Hypertension Heart disease Social History Social History Smoking packs per day: 1 Smoking cigarettes per day: 20.0 Years smoked: 55 Smoking pack-years: 55.00 Smoking status: Current every day smoker Tobacco type: cigarettes and cigars Additional smoking assessment comments: CUTTING BACK TO 4 CIG/DAY CURRENTLY Alcohol intake: never Substance use: never Additional living arrangements comments: HUSB Gender identity (if verbalized by the patient): Female Spiritual care concerns: No Meds Home Medications and Allergies Home Medications Medication Instructions Recorded Confirmed Type acetaminophen 650 mg 1,300 mg PO Q12H PRN Pain 10/21/21 02/05/22 History tablet,extended release aspirin 81 mg tablet,delayed 81 mg PO DAILY 10/21/21 02/05/22 History release (Adult Low Dose Aspirin) cholecalciferol (vitamin D3) 100 100 mcg PO DAILY 10/21/21 02/05/22 History mcg (4,000 unit) tablet cyanocobalamin (vitamin B-12) 2,500 mcg PO DAILY 10/21/21 02/05/22 History 2,500 mcg tablet meloxicam 15 mg tablet 1 tablet PO QACLUNCH PRN Pain 10/21/21 02/05/22 History tramadol 50 mg tablet 1 tablet PO Q6-8H PRN Pain 10/21/21 02/05/22 History on
--- NOTE | 2022-03-31 01:50 | ADMGEN ---
This patient, Cassandra Valdivia, was admitted to 3 [facility] Surg Room 332-02. Patient/family oriented to hospital policies and general routines including ID bracelet, bed and alarms, visiting hours, pain management, procedures, bathroom and other care routines, personal items, smoking policy, room service/diet, and visiting hours. Information on how to activate the Rapid Response Team has been discussed. Patient/Family are encouraged to report perceived risks to care and to ask questions if they do not understand what they are told or what they should do.
[2022-03-31] MEDS: APIXABAN 5 MG TABLET 10 MG PO ×2 (02:10→10:05)
[2022-03-31] MEDS: SODIUM CHLORIDE 0.9% IV 1,000 ML 100 ML IV CONT (02:11)
[2022-03-31] MEDS: POTASSIUM CHLORIDE 20 MEQ TABLET 40 MEQ PO (02:11)
[2022-03-31] MEDS: CHOLECALCIFEROL 1,000 UNITS TABLET 4000 UNITS PO (08:36)
[2022-03-31] MEDS: CYANOCOBALAMIN 500 MCG TABLET 2500 MCG PO (08:37)
[2022-03-31] MEDS: ASPIRIN 81 MG ENTERIC TABLET PO (08:37)
--- NOTE | 2022-03-31 11:03 | PCOTNOTE ---
Therapist attempted OT evaluation although unable to complete at this time. Nurse reports patient is not appropriate to see with current blood clot and start of medication.
--- NOTE | 2022-03-31 11:19 | PCPTNOTE ---
Therapist attempted PT evaluation although unable to complete at this time. Nurse reports patient is not appropriate to see with current blood clot and start of medication.
--- NOTE | 2022-03-31 12:08 | PM.IMPN ---
Progress Note: A&P Assessment and Plan (1) Pulmonary embolism on right: Code(s): I26.99 - Other pulmonary embolism without acute cor pulmonale Status: Acute (2) Acute UTI: Code(s): N39.0 - Urinary tract infection, site not specified Status: Acute (3) Generalized weakness: Code(s): R53.1 - Weakness Status: Acute Plan # new segmental PE provoked likely by cancer -patient has underlying CLL making her hypercoagulable -PE found on CTA chest, likely etiology for her symptoms of dyspnea - venous duplex positive for DVT in bilateral lower limbs. Left more than right - started on Eliquis however might need to switch to short-acting for possible need for biopsy/colonoscopy /urological procedure. She received Eliquis this morning. Will hold any further Eliquis and switch to heparin drip from [facility] -echocardiogram from 03/08/2022: EF 60 65%, abnormal left ventricle septal wall motion related to bundle-branch block, grade 1 diastolic dysfunction # urinary tract infection -no leukocytosis however UA does appear to have signs of UTI -antibiotics: Rocephin -IV fluids: Normal saline 1 L CTA with mild left hydronephrosis and hydroureter. Will consult Urology # hypokalemia -potassium low at 2.9 given 20 mEq IV potassium chloride, 40 mg IV potassium chloride x2 -will continue to trend, secondary to poor p.o. intake -PT and OT consulted for weakness -essential hypertension: Losartan -CLL: On Rituxan chemotherapy, she missed her last session on 03/04, last dose was to 4 weeks prior. Bendamustine Rituxan cycle 1 was 11/12/21. Pain control: Tylenol, [place], morphine -patient on aspirin 81 for secondary erythrocytosis -for anemia was on ferrous sulfate and B12 supplements ileocolic lymphadenopathy liver masses and right colon thickening GI consult oncology consult Left hydronephrosis and hydroureter urology consult Endometrial thickening new finding Diet: Regular DVT prophylaxis: Started on Eliquis Code status: Full code Disposition: PT OT to see Subjective Date/time seen: 03/31/22 12:08 Interval history: Patient is a 77-year-old female with past medical history of CLL on chemotherapy, essential hypertension presents to ED with complaints of dyspnea.? Patient states she has had dyspnea for several months on and off, now her dyspnea significant enough to bring into the ED. She feels that she takes more breaks when walking because of getting short of breath.? She notices this the most when she is walking her dog.? She has complaints of dyspnea and had her dose of Rituxan chemotherapy held on 03/04, subsequently had echocardiogram 03/07 showing grade 1 diastolic dysfunction otherwise normal EF. In the ED:? CTA chest abdomen pelvis consistent with right pulmonary embolism.? She was tachypneic but otherwise breathing comfortably on room air..? She has been started on Eliquis.? For the UTI she has been started on Rocephin.? Patient has hypokalemia 2.9 and given 20 mEq IV potassium chloride and PO 40 mEq in the ED. with the hypokalemia, UTI, acute PE patient be admitted for observation. 03/31/2022: Feeling pretty good today. Shortness of breath ongoing since 1-2 months now. In chemotherapy held on 03/04. Echo on 03/07 with grade 1 diastolic dysfunction otherwise normal EF. Found to have right-sided pulmonary embolism on CTA abdomen and pelvis. Review of Systems Review of Systems: All systems reviewed & are unremarkable except as noted in HPI and below Exam Narrative: - GENERAL: Pleasant elderly woman in no acute distress. Well-nourished - EYES: EOMI. Anicteric. - HENT: Moist mucous membranes. - LUNGS: Clear to auscultation bilaterally, no wheezing, rhonchi, or rales. - CARDIOVASCULAR: Regular rate and rhythm. No murmur. No JVD. - ABDOMEN: Soft, non-tender and non-distended. No palpable masses. - EXTREMITIES: Left lower extremities appears to be more edematous than right lower extremity, more prom
[2022-03-31 13:00] LABS: Anion Gap 4 mmol/L (8-16); Blood Urea Nitrogen 14 mg/dL (7-17); Calcium 7.7 mg/dL (8.4-10.2); Carbon Dioxide 24 mmol/L (22-30); Chloride 111 mmol/L (98-107); Estimated CRCL calculation 36 ml/min; Estimated Glomerular Filt Rate 40; Glucose 91 mg/dL (65-110); Potassium 3.9 mmol/L (3.4-5.0); Sodium 139 mmol/L (137-145)
[2022-03-31] MEDS: CENTRAL LINE FLUSH 10 ML IV PUSH ×2 (13:16→21:43)
--- NOTE | 2022-03-31 15:58 | WPDURCON ---
Assessment and Plan Assessment and plan (1) Acute UTI: Code(s): N39.0 - Urinary tract infection, site not specified Status: Acute Assessment and Plan: Continue Rocephin, tailor to culture sensitivity results. Ok to discharge home when stable on appropriate oral antibiotics. (2) Hydronephrosis: Code(s): N13.30 - Unspecified hydronephrosis Status: Acute Assessment and Plan: Get AGNES tomorrow to ensure hydro is improving with treatment of UTI. If no improvement, will repeat again in one month as outpatient then f/u in the office. No obstruction noted to cause hydronephrosis, likely pyelonephritis in nature. Urology Consult Note HPI Date Seen: 03/31/22 Time Seen: 15:58 Requesting Physician: Horacio Beard MD Primary Care Provider: Chente Whiteside MD Consult Narrative Narrative: Cassandra Valdivia is a 77 year old female who presented to the ER via EMS for shortness of breath and acute onset of left flank pain, nausea and vomiting accompanied by chills that began on 03/30/22. She has a history of CLL and is treated by Dr. Mcmanus. Her last chemo treatment was 03/04/22. She was found on CTA to have a PE, mild hydronephrosis and hydroureter in the left side on 03/30/22 as well as possible metastatic disease of multiple organs. Her UA suggests a UTI d/t positive nitrites in the urine. Creatinine is improved today from 1.50 yesterday to 1.30 today. Her PVR via bladder scan today is 140cc. She is tachypneic today but afebrile. She was started on Rocephin for her UTI. She states that she has noticed frequency and urgency with urination lately but denies hematuria or dysuria. Review of Systems Cardiovascular: Cardiovascular: Denies chest pain Respiratory: Respiratory: Reports dyspnea Gastrointestinal: Gastrointestinal: Denies abdominal pain, Reports nausea and Denies vomiting Genitourinary: Genitourinary: Denies hematuria, Reports nocturia, Denies dysuria, Reports flank pain and Reports urinary urgency PMF Past Medical History Medical History CLL (chronic lymphocytic leukemia) Hypertension Surgical History Surgical History History of tubal ligation Family History Family History Mother Hypertension Father Asthma Sibling Hypertension Heart disease Social History Social History Years smoked: 55 Smoking status: Current every day smoker Tobacco type: cigarettes Alcohol intake: never Substance use: never Substance use type: does not use Lack of Transportation: No Lack of Food: Never True Current Housing: I Have Housing Concerned About Future Housing: No Difficulty Paying Gas/Electric Bills: No Difficulty Paying for Meds: No Currently Unemployed: No Education: High School Diploma/GED Difficulty w/ Childcare or Family Care: No Additional living arrangements comments: [facility]ANDAR Gender identity (if verbalized by the patient): Female Spiritual care concerns: No Meds Home Medications and Allergies Home Medications Medication Instructions Recorded Confirmed Type acetaminophen 650 mg 1,300 mg PO Q12H PRN Pain 10/21/21 03/31/22 History tablet,extended release aspirin 81 mg tablet,delayed 81 mg PO DAILY 10/21/21 03/31/22 History release (Adult Low Dose Aspirin) cholecalciferol (vitamin D3) 100 100 mcg PO DAILY 10/21/21 03/31/22 History mcg (4,000 unit) tablet cyanocobalamin (vitamin B-12) 2,500 mcg PO DAILY 10/21/21 03/31/22 History 2,500 mcg tablet meloxicam 15 mg tablet 1 tablet PO QACLUNCH PRN Pain 10/21/21 03/31/22 History tramadol 50 mg tablet 1 tablet PO Q6-8H PRN Pain 10/21/21 03/31/22 History losartan 100 mg tablet 100 mg PO QAM #90 tabs 12/27/21 03/31/22 Rx [facility]
--- NOTE | 2022-03-31 17:20 | WPDGICN ---
Assessment and Plan Assessment and plan (1) Abnormal CT scan, gastrointestinal tract: Code(s): R93.3 - Abnormal findings on diagnostic imaging of other parts of digestive tract Status: Acute Assessment and Plan: CT scan shows: IMPRESSION: 1. Acute right-sided pulmonary emboli. 2. Irregular wall thickening of the right colon and ileocecal valve, consistent with primary adenocarcinoma. 3. Ileocolic lymphadenopathy and liver masses, consistent with metastatic disease. 4. Peripheral splenic masses measuring up to 1.7 cm, likely infarcts. 5. Mild left hydronephrosis and hydroureter. 6. Thickening of the endometrial complex. The differential diagnosis includes endometrial hyperplasia, polyp, and carcinoma. explain her that she will need a colonoscopy. We will begin prep tomorrow for the procedure to be done on Thursday (2) CLL (chronic lymphocytic leukemia): Code(s): C91.10 - Chronic lymphocytic leukemia of B-cell type not having achieved remission Status: Acute Assessment and Plan: this was followed on routine blood work a couple of years ago. (3) Pulmonary embolism on right: Code(s): I26.99 - Other pulmonary embolism without acute cor pulmonale Status: Acute Assessment and Plan: She was started on Eliquis. She will be switched to heparin so that we can interrupt that for few hours to perform the colonoscopy before she is fully anticoagulated (4) Dyspnea on exertion: Code(s): R06.09 - Other forms of dyspnea Status: Acute Assessment and Plan: this has been going on for couple of months. I doubt that this is all due to her pulmonary embolism. She is anemic. Plan Colonoscopy to be done on Thursday with prep tomorrow. She will be started on heparin and this will be held for 5 hours prior to the colonoscopy. GI Consult Note Consult date/time: 03/31/22 17:20 HPI: Cassandra Valdivia is a 77 year old female Who presented to the emergency room with shortness of breath. She has been progressively short of breath for the last couple of months but yesterday the cane uncomfortable, getting very warm for while then vomited twice. Her decided to bring her to the emergency room. There she was found on CTA, the have a pulmonary embolism. She does have CLL which was found a couple of years ago which makes her hypercoagulable. The CT scan also showed an apparent mass in the ascending colon, with thickening in the area of the cecum. She has never had a colonoscopy. She admits that she has not been in the habit of seen a doctor left she was ill. His only because she needed a physical prior to cataract surgery that she had blood work done finding the leukemia. She denies seeing blood in her stools. She has no abdominal pain except for a twinge and discomfort on the left side. CT has shown a left hydroureter. She denies weight loss. Until yesterday she had not had vomiting or trouble eating and she is eating this afternoon without difficulty. She denies chronic heartburn, dysphagia, or any history of liver disease or pancreatic disease. Review of Systems Review of Systems: All systems reviewed & are unremarkable except as noted in HPI and below PMFSH Past Medical History Medical History CLL (chronic lymphocytic leukemia) Hypertension Surgical History Surgical History History of tubal ligation Family History Family History Mother Hypertension Father Asthma Sibling Hypertension Heart disease Social History Social History Years smoked: 55 Smoking status: Current every day smoker Tobacco type: cigarettes Alcohol intake: never Substance use: never Substance use type: does not use Lack of Transpor
--- NOTE | 2022-03-31 18:27 | PDONCCN ---
HPI - Date of Consult Date/Time: 03/31/22 18:27 Requesting Physician: Horaico Beard MD Primary Care Provider: Chente Whiteside MD - Consult Narrative Reason for consult: Likely metastatic colon cancer Narrative: Cassandra Valdivia is a 77 year old female with history of chronic lymphocytic leukemia diagnosed in March 2017 stage IV disease. Patient has been receiving chemotherapy with bendamustine Rituxan since November 12, 2021 and has completed cycle 4 of chemotherapy. She is due to receive cycle 5 tomorrow. She came into the hospital with shortness of breath off and on for several weeks along with generalized weakness. CT chest done in ER showed pulmonary embolism. It also showed irregular wall thickening of the right colon and ileo colic lymphadenopathy and liver masses. There was splenic masses as well. This is our likely infarctions. There was thickening of the endometrial complex and differential diagnosis include endometrial hyperplasia and carcinoma. Labs showed hemoglobin of 9.6. Patient was started on heparin drip. She denies any diarrhea constipation. Denies any melena hematochezia. Denies any previous history of colon cancer. She never had colonoscopy done in the past. Review of Systems - Review of Systems All systems reviewed & are unremarkable except as noted in HPI and [facility] Medical History: Medical History (Last Reviewed 03/31/22 @ 17:24 by Arnaldo Maldonado MD) CLL (chronic lymphocytic leukemia) Hypertension Surgical History: Surgical History (Last Reviewed 03/31/22 @ 17:24 by Arnaldo Maldonado MD) History of tubal ligation Family History: Family History (Last Reviewed 03/31/22 @ 17:24 by Arnaldo Maldonado MD) Mother Hypertension Father Asthma Sibling Hypertension Heart disease - Social History Social History: Social History (Last Reviewed 03/31/22 @ 17:24 by Arnaldo Maldonado MD) Gender Identity: Gender identity (if verbalized by the patient): Female Alcohol Use: Alcohol intake: never Substance Use: Substance use: never Substance use type: does not use Others: Spiritual care concerns: No Smoking Status: Smoking status: Current every day smoker Tobacco type: cigarettes Smoking Pack-years: Smoking cigarettes per day: 1 Years smoked: 55 Smoking pack-years: 2.75 Social Determinants of Health: Has the Lack of Transportation Kept You From Medical Appointments or From Getting Medications?: No Within the Past 12 Months, Were You Worried Whether Your Food Would Run Out Before You Got Money to Buy More?: Never True What is Your Housing Situation Today?: I Have Housing Are You Worried That in the Next 2 Months, You May Not Have Your Own Housing to Live In?: No Do You Have Trouble Paying Your Heating Or Electricity Bill?: No Do You Have Trouble Paying For Medicines?: No Are You Currently Unemployed and Looking for Work?: No Highest Level of Education Completed: High School Diploma/GED Do You Have Trouble With Childcare or the Care of a Family Member?: No Exam - Vital Signs Vital Signs - 24 hr 03/30/22 20:27 03/30/22 22:05 03/30/22 22:15 Temperature 37.4 C Pulse Rate 114 H 105 H 100 Respiratory Rate 20 24 H 27 H Blood Pressure 138/65 Pulse Oximetry 97 98 95 Oxygen Delivery Room Air 03/30/22 22:16 03/30/22 22:17 03/30/22 22:18 Temperature Pulse Rate 106 H 100 102 H Respiratory Rate 32 H 29 H Blood Pressure 99/46 L Pulse Oximetry 95 95 95 Oxygen Delivery 03/30/22 22:30 03/30/22 22:31 03/30/22 22:41 Temperature Pulse Rate 103 H 104 H 101 H Respiratory Rate Blood Pressure 105/65 Pulse Oximetry 96 96 96 Oxygen Delivery 03/30/22 22:45 03/30/22 22:46 03/30/22 23:00 Temperature Pulse Rate 102 H 101 H 97 Respiratory Rate Blood Pressure 104/54 L 101/62 Pulse Oximetry 96 96 96 Oxygen Delivery
[2022-03-31 19:27] LABS: Basophils Absolute Auto 0.1 K/mm3 (0.0-0.1); Basophils Percent Auto 0.5 % (0.2-1.2); Eosinophils Absolute Auto 0.4 K/mm3 (0-0.3); Hematocrit 25.3 % (37.0-47.0); Immature Granulocyte Absolute 0.06 K/mm3 (0.00-0.031); Immature Granulocyte Percent A 0.6 % (0-0.5); Lymphocytes Absolute Auto 0.57 K/mm3 (0.9-3.2); Lymphocytes Percent Auto 5.9 % (18.3-44.2); Mean Corpuscular HGB Conc 31.6 g/dl (32-36); Mean Corpuscular Hemoglobin 30.2 pg (26-34); Mean Corpuscular Volume 95.5 fl (80-100); Mean Platelet Volume 9.6 fl (7.4-10.4); Monocytes Absolute Auto 0.9 K/mm3 (0.1-0.6); Monocytes Percent Auto 9.5 % (2.6-8.5); Neutrophils Absolute Auto 7.7 K/mm3 (1.3-6.7); Neutrophils Percent Auto 79.5 % (45.5-73.1); Platelet Count Result 347 k/mm3 (150-375); Red Blood Count 2.65 M/mm3 (4.2-5.4); Red Cell Distribution Width 14.9 % (11.5-14.5); White Blood Count 9.7 K/mm3 (4.5-10.0)
[2022-03-31 19:35] LABS: Carcinoembryonic Antigen 2.6 ng/mL (0.0-3.0)
[2022-03-31 19:52] LABS: INR 1.9; Prothrombin Time 21.3 Seconds (11.1-14.7)
[2022-03-31 19:53] LABS: Partial Thromboplastin Time 43.4 SECONDS (22.3-36.8)
[2022-03-31 20:20] LABS: Folic Acid 3.3 ng/mL (2.76->20); Vitamin B12 > 1000.0 pg/mL (239-931)
--- NOTE | 2022-03-31 21:02 | PC.NURSE ---
Physician to nurse communication to start heparin @2200 on 03/31/22 despite JUL scheduling @ 1845. Previous RN confirmed with physician as well.
[2022-03-31] MEDS: BISACODYL 5 MG TABLET EC 10 MG PO (21:41)
[2022-03-31] MEDS: HEPARIN SOD/D5W 100 UNITS/ML 25,000 UNITS/250 ML BAG 12 UNITS IV CONT (22:18)
[2022-03-31 22:30] LABS: Iron 30 ug/dL (37-170)
[2022-03-31 22:40] LABS: Percent Iron Saturation 18 % (20-50)
--- NOTE | 2022-04-01 05:20 | PC.NURSE ---
@ approximately 0245 rubber grinder was notified that nurse can not collect 0425 timed aptt lab from port due to continuous heparin infusion. @ approximately 0510 nurse called to remind lab of need to draw aptt that was due @ 0425.
[2022-04-01 06:00] VITALS: BP 113/58; PULSE 70; RESP 18; TEMP 36.8; O2SAT 98
[2022-04-01] MEDS: CENTRAL LINE FLUSH 10 ML IV PUSH ×3 (06:22→22:00)
[2022-04-01 06:23] LABS: Basophils Percent Auto 0.4 % (0.2-1.2); Eosinophils Absolute Auto 0.5 K/mm3 (0-0.3); Eosinophils Percent Auto 5.8 % (0-4.4); Hematocrit 24.9 % (37.0-47.0); Hemoglobin 7.9 g/dL (12.0-15.0); Immature Granulocyte Absolute 0.06 K/mm3 (0.00-0.031); Immature Granulocyte Percent A 0.7 % (0-0.5); Lymphocytes Absolute Auto 0.57 K/mm3 (0.9-3.2); Lymphocytes Percent Auto 6.9 % (18.3-44.2); Mean Corpuscular HGB Conc 31.7 g/dl (32-36); Mean Corpuscular Hemoglobin 30.3 pg (26-34); Mean Corpuscular Volume 95.4 fl (80-100); Mean Platelet Volume 9.9 fl (7.4-10.4); Monocytes Absolute Auto 0.7 K/mm3 (0.1-0.6); Monocytes Percent Auto 8.5 % (2.6-8.5); Neutrophils Absolute Auto 6.5 K/mm3 (1.3-6.7); Neutrophils Percent Auto 77.7 % (45.5-73.1); Platelet Count Result 360 k/mm3 (150-375); Red Blood Count 2.61 M/mm3 (4.2-5.4); Red Cell Distribution Width 15.1 % (11.5-14.5); White Blood Count 8.3 K/mm3 (4.5-10.0)
[2022-04-01 06:36] LABS: Partial Thromboplastin Time 115.4 SECONDS (22.3-36.8)
[2022-04-01 06:39] LABS: Alanine Aminotransferase 16 U/L (6-35); Albumin Level 2.3 g/dL (3.5-5.1); Alkaline Phosphatase 61 U/L (38-126); Anion Gap 5 mmol/L (8-16); Aspartate Amino Transferase 30 U/L (14-36); Bilirubin,Total 0.3 mg/dL (0.2-1.3); Blood Urea Nitrogen 14 mg/dL (7-17); Calcium 7.6 mg/dL (8.4-10.2); Carbon Dioxide 21 mmol/L (22-30); Chloride 114 mmol/L (98-107); Estimated CRCL calculation 38 ml/min; Estimated Glomerular Filt Rate 44; Glucose 99 mg/dL (65-110); Magnesium 1.6 mg/dL (1.6-2.3); Potassium 3.7 mmol/L (3.4-5.0); Sodium 140 mmol/L (137-145)
[2022-04-01] MEDS: CYANOCOBALAMIN 500 MCG TABLET 2500 MCG PO (08:48)
[2022-04-01] MEDS: CHOLECALCIFEROL 1,000 UNITS TABLET 4000 UNITS PO (08:48)
[2022-04-01] MEDS: ASPIRIN 81 MG ENTERIC TABLET PO (08:49)
--- NOTE | 2022-04-01 10:31 | PCPTNOTE ---
Attempted PT evaluation, pt off the floor for testing. Will follow.
[2022-04-01] MEDS: BISACODYL 5 MG TABLET EC 10 MG PO (11:23)
--- NOTE | 2022-04-01 11:44 | PCOTNOTE ---
Attempted to see pt. for occupational therapy evaluation. Pt. has returned to room, nursing drawing labs requesting wait for evaluation, as pt. must be supine for labs. Following
[2022-04-01 13:00] LABS: Partial Thromboplastin Time 40.7 SECONDS (22.3-36.8)
[2022-04-01 13:12] LABS: INR 1.4; Prothrombin Time 16.4 Seconds (11.1-14.7)
[2022-04-01 13:30] VITALS: BP 116/44; PULSE 71; RESP 16; TEMP 36.6; O2SAT 99
[2022-04-01 13:36] VITALS: BP 119/68; PULSE 82; RESP 18; O2SAT 100
[2022-04-01 13:58] VITALS: BP 119/67; PULSE 73; RESP 18; O2SAT 100
--- NOTE | 2022-04-01 15:03 | WPDUROPN2 ---
Progress Note: A&P Assessment and Plan (1) Hydronephrosis: Code(s): N13.30 - Unspecified hydronephrosis Status: Acute Assessment and Plan: Resolved on AGNES today. No further follow up needed. Ok to discharge at anytime per urology. (2) Acute UTI: Code(s): N39.0 - Urinary tract infection, site not specified Status: Acute Assessment and Plan: Tailor IV antibiotics to culture sensitivity report. Subjective Subjective Date/Time Seen: 04/01/22 15:03 Urine culture grew E-Coli, no sensitivity at this time, continues on IV antibiotics. Creatinine is improved to 1.20. Repeat AGNES shows resolution of hydronephrosis. Patient is sitting up in the chair eating. Review of Systems Cardiovascular: Cardiovascular: Denies chest pain Respiratory: Respiratory: Reports no additional respiratory complaints Gastrointestinal: Gastrointestinal: Denies abdominal pain, Denies nausea and Denies vomiting Genitourinary: Genitourinary: Denies dysuria, Denies pelvic pain, Denies flank pain, Denies urinary incontinence, Denies urinary hesitancy and Denies urinary urgency Exam Const: General: cooperative and comfortable Resp: Effort & Inspection: normal respiratory effort Cardio: Rate: regular rate GI: GI Palp: Yes Soft to palpation and Yes Tenderness to palpation present (GI) : General: Yes no CVA tenderness Extrem: Right lower extremity: no edema Left lower extremity: no edema Objective Data Vital Signs Vital Signs: Vital Signs - 24 hr 03/31/22 16:00 03/31/22 22:00 03/31/22 20:00 Temperature 98.2 F 98 F Pulse Rate 60 70 Respiratory Rate 20 16 Blood Pressure 110/52 L 104/48 L Pulse Oximetry 98 99 Oxygen Delivery Room Air 04/01/22 06:00 04/01/22 11:50 04/01/22 13:36 Temperature 98.3 F Pulse Rate 70 82 Respiratory Rate 18 18 Blood Pressure 113/58 L 119/68 Pulse Oximetry 98 100 Oxygen Delivery Room Air 04/01/22 13:58 04/01/22 13:30 Temperature 98 F Pulse Rate 73 71 Respiratory Rate 18 16 Blood Pressure 119/67 116/44 L Pulse Oximetry 100 99 Oxygen Delivery Intake/Output Intake/Output: Intake & Output 03/29/22 03/30/22 03/31/22 04/01/22 23:59 23:59 23:59 23:59 Intake Total 50 3660 1999 Output Total 600 Balance 50 3060 1999 Meds/Results Medications: Active Medications Generic Name Dose Route Start Last Admin Trade Name Emily PRN Reason Stop Dose Admin Acetaminophen 650 mg 03/31/22 01:20 Acetaminophen 325 Mg Tablet PO Q4H PRN Mild Pain (1-3) or Fever Hydrocodone Bitart/Acetaminophen 1 tab 03/31/22 01:36 Hydrocodone/Acetaminophen (*Crx) 5-325 Mg Tablet PO Q4H PRN Moderate Pain (4-6) Al Hydrox/Mg Hydrox/Simethicone 30 ml 03/31/22 01:20 Mag Hydrox/Al Hydrox/Simeth 30 Ml Udc PO QID PRN Dyspepsia Apixaban 10 mg 03/31/22 11:00 03/31/22 10:05 Apixaban 5 Mg Tablet PO 10 mg Q12HR CORTEZ Administration Aspirin 81 mg 03/31/22 09:00 04/01/22 08:49 Aspirin 81 Mg Enteric Tablet PO 81 mg DAILY CORTEZ Administration Cyanocobalamin 2,500 mcg 03/31/22 09:00 04/01/22 08:48 Cyanocobalamin 500 Mcg Tablet PO 2,500 mcg DAILY CORTEZ Administration Heparin Sodium (Beef Lung) 50 units 04/01/22 09:00 04/01/22 08:46 Heparin Flush 50 Units/5 Ml Syringe IV PUSH Not Given QAM CORTEZ Heparin Sodium (Beef Lung) 50 units 03/31/22 12:48 Heparin Flush 50 Units/5 Ml Syringe IV PUSH PRN PRN after intermittent infusion Heparin Sodium (Beef Lung) 50 units 03/31/22 12:48 Heparin Flush 50 Units/5 Ml Syringe IV PUSH PRN PRN after blood draws Heparin Sodium (Beef Lung) 50 units 04/01/22 09:00 04/01/22 08:46 Heparin Flush 50 Units/5 Ml Syringe IV PUSH Not Given QAM CORTEZ Heparin Sodium (Beef Lung) 50 units 03/31/22 22:26 Heparin Flush 50 Units/5 Ml Syringe IV PUSH PRN PRN after intermittent infusion Heparin Sodium (Beef Lung)
--- NOTE | 2022-04-01 15:37 | PM.IMPN ---
Progress Note: A&P Assessment and Plan (1) Pulmonary embolism on right: Code(s): I26.99 - Other pulmonary embolism without acute cor pulmonale Status: Acute (2) Acute UTI: Code(s): N39.0 - Urinary tract infection, site not specified Status: Acute (3) Generalized weakness: Code(s): R53.1 - Weakness Status: Acute Plan # new segmental PE provoked likely by cancer -patient has underlying CLL making her hypercoagulable -PE found on CTA chest, likely etiology for her symptoms of dyspnea - venous duplex positive for DVT in bilateral lower limbs. Left more than right - started on Eliquis however might need to switch to short-acting for possible need for biopsy/colonoscopy /urological procedure. She received Eliquis this morning. Will hold any further Eliquis and switch to heparin drip 03/31/2022 -echocardiogram from 03/08/2022: EF 60 65%, abnormal left ventricle septal wall motion related to bundle-branch block, grade 1 diastolic dysfunction heparin drip held this a.m. for liver biopsy. Will resume heparin drip postoperatively # urinary tract infection -no leukocytosis however UA does appear to have signs of UTI -antibiotics: Rocephin -IV fluids: Normal saline 1 L CTA with mild left hydronephrosis and hydroureter. Urology consulted suspect related to UTI Renal ultrasound with no findings of hydronephrosis or hydroureter # hypokalemia -potassium low at 2.9 given 20 mEq IV potassium chloride, 40 mg IV potassium chloride x2 -will continue to trend, secondary to poor p.o. intake -PT and OT consulted for weakness -essential hypertension: Losartan -CLL: On Rituxan chemotherapy, she missed her last session on 03/04, last dose was to 4 weeks prior. Bendamustine Rituxan cycle 1 was 11/12/21. Pain control: Tylenol, [place], morphine -patient on aspirin 81 for secondary erythrocytosis -for anemia was on ferrous sulfate and B12 supplements ileocolic lymphadenopathy liver masses and right colon thickening GI consult oncology consult. GI was planning to do colonoscopy for right colon thickening. Have discussed plan is to get liver biopsy today hence planned colonoscopy will be held or canceled at this point until biopsy resolved from the liver comes back. Left hydronephrosis and hydroureter urology consult See above Endometrial thickening new finding Diet: Regular DVT prophylaxis: Started on Eliquis Code status: Full code Disposition: PT OT to see Subjective Date/time seen: 04/01/22 15:37 Interval history: Patient is a 77-year-old female with past medical history of CLL on chemotherapy, essential hypertension presents to ED with complaints of dyspnea.? Patient states she has had dyspnea for several months on and off, now her dyspnea significant enough to bring into the ED. She feels that she takes more breaks when walking because of getting short of breath.? She notices this the most when she is walking her dog.? She has complaints of dyspnea and had her dose of Rituxan chemotherapy held on 03/04, subsequently had echocardiogram 03/07 showing grade 1 diastolic dysfunction otherwise normal EF. In the ED:? CTA chest abdomen pelvis consistent with right pulmonary embolism.? She was tachypneic but otherwise breathing comfortably on room air..? She has been started on Eliquis.? For the UTI she has been started on Rocephin.? Patient has hypokalemia 2.9 and given 20 mEq IV potassium chloride and PO 40 mEq in the ED. with the hypokalemia, UTI, acute PE patient be admitted for observation. 03/31/2022: Feeling pretty good today. Shortness of breath ongoing since 1-2 months now. In chemotherapy held on 03/04. Echo on 03/07 with grade 1 diastolic dysfunction otherwise normal EF. Found to have right-sided pulmonary embolism on CTA abdomen and pelvis. 04/01/2022: Feels pretty good. She denies any shortness of breath. Legs are sore. Denies any abdominal pain nausea vomiting diarrhea. No cough. Discusse
--- NOTE | 2022-04-01 16:42 | PC.NURSE ---
This nurse was told to hold heparin drip one hour before pt goes down for procedures. Talked to Dr. Ruffin after pt got back from us liver biopsy and renal us at 1400. Stated that pt needs to be off of any anticoagulants for [address] Beard. Dr. Beard spoke with Dr. Ruffin as well. Dr. Beard told this nurse that we will start heparin drip back up at 1000. Told this nurse that he would put in a nurse to physician communication as a reminder.
[2022-04-01 20:00] VITALS: BP 119/63; PULSE 100; RESP 16; TEMP 36.6; O2SAT 99
[2022-04-01] MEDS: HEPARIN SOD/D5W 100 UNITS/ML 25,000 UNITS/250 ML BAG 11 UNITS IV CONT (21:57)
[2022-04-02 05:54] VITALS: BP 112/46; PULSE 78; RESP 18; TEMP 36.6; O2SAT 95
--- NOTE | 2022-04-02 05:57 | PC.NURSE ---
notified cleaning laborer of need for community services coordinator to draw aptt @ 0400 due to patient's heparin drip and nurse being unable to pause heparin to use port. @0530 community services coordinator was contacted again by nurse regarding need for 0400 ptt lab draw. Converter Operator stated I forgot . Converter Operator stated they would come draw now.
[2022-04-02] MEDS: CENTRAL LINE FLUSH 10 ML IV PUSH (06:22)
[2022-04-02 06:26] LABS: Basophils Percent Auto 0.6 % (0.2-1.2); Eosinophils Absolute Auto 0.5 K/mm3 (0-0.3); Hematocrit 25.9 % (37.0-47.0); Immature Granulocyte Absolute 0.05 K/mm3 (0.00-0.031); Immature Granulocyte Percent A 0.8 % (0-0.5); Lymphocytes Absolute Auto 0.59 K/mm3 (0.9-3.2); Lymphocytes Percent Auto 8.9 % (18.3-44.2); Mean Corpuscular HGB Conc 30.9 g/dl (32-36); Mean Corpuscular Hemoglobin 29.9 pg (26-34); Mean Corpuscular Volume 96.6 fl (80-100); Mean Platelet Volume 9.5 fl (7.4-10.4); Monocytes Absolute Auto 0.7 K/mm3 (0.1-0.6); Monocytes Percent Auto 10.2 % (2.6-8.5); Neutrophils Absolute Auto 4.8 K/mm3 (1.3-6.7); Neutrophils Percent Auto 71.5 % (45.5-73.1); Platelet Count Result 345 k/mm3 (150-375); Red Blood Count 2.68 M/mm3 (4.2-5.4); Red Cell Distribution Width 14.8 % (11.5-14.5); White Blood Count 6.6 K/mm3 (4.5-10.0)
[2022-04-02 06:43] LABS: Alanine Aminotransferase 15 U/L (6-35); Albumin Level 2.4 g/dL (3.5-5.1); Alkaline Phosphatase 56 U/L (38-126); Anion Gap 2 mmol/L (8-16); Aspartate Amino Transferase 29 U/L (14-36); Bilirubin,Total 0.2 mg/dL (0.2-1.3); Blood Urea Nitrogen 8 mg/dL (7-17); Calcium 7.8 mg/dL (8.4-10.2); Carbon Dioxide 23 mmol/L (22-30); Chloride 109 mmol/L (98-107); Estimated CRCL calculation 46 ml/min; Estimated Glomerular Filt Rate 54; Glucose 85 mg/dL (65-110); Magnesium 1.4 mg/dL (1.6-2.3); Potassium 3.4 mmol/L (3.4-5.0); Sodium 134 mmol/L (137-145)
[2022-04-02 06:58] LABS: Partial Thromboplastin Time 80.4 SECONDS (22.3-36.8)
[2022-04-02] MEDS: CYANOCOBALAMIN 500 MCG TABLET 2500 MCG PO (09:24)
[2022-04-02] MEDS: CHOLECALCIFEROL 1,000 UNITS TABLET 4000 UNITS PO (09:24)
[2022-04-02] MEDS: ASPIRIN 81 MG ENTERIC TABLET PO (09:25)
[2022-04-02] MEDS: POTASSIUM CHLORIDE 20 MEQ TABLET 40 MEQ PO (12:10)
[2022-04-02 13:28] LABS: Partial Thromboplastin Time 66.2 SECONDS (22.3-36.8)
[2022-04-02] MEDS: HEPARIN SODIUM 5,000 UNITS/ML VIAL 2500 UNITS IV PUSH (13:52)
[2022-04-02] MEDS: HEPARIN SOD/D5W 100 UNITS/ML 25,000 UNITS/250 ML BAG 12 UNITS IV CONT (15:58)
--- NOTE | 2022-04-02 18:31 | PM.IMPN ---
Progress Note: A&P Assessment and Plan (1) Pulmonary embolism on right: Code(s): I26.99 - Other pulmonary embolism without acute cor pulmonale Status: Acute Assessment and Plan: 04/02/2022:interval history: Feels pretty good. She denies any shortness of breath. Legs are sore. Denies any abdominal pain nausea vomiting diarrhea. No cough. Discussed findings with patient. patient had US guided 2.7 cm hypoechoic liver mass biopsy of 04/01 for possible metastatic colon cancer, also patient stats she had been immobile for few weeks prior to coming to ER and has provoked PE and DVT also patent is hypercoagulable state due to cancer, patient has UTI with E. coli being treated with ceftriaxone. (2) Acute UTI: Code(s): N39.0 - Urinary tract infection, site not specified Status: Acute (3) Generalized weakness: Code(s): R53.1 - Weakness Status: Acute Plan # new segmental PE provoked likely by cancer -patient has underlying CLL making her hypercoagulable -PE found on CTA chest, likely etiology for her symptoms of dyspnea - venous duplex positive for DVT in bilateral lower limbs. Left more than right - started on Eliquis however might need to switch to short-acting for possible need for biopsy/colonoscopy /urological procedure. She received Eliquis this morning. Will hold any further Eliquis and switch to heparin drip 03/31/2022 -echocardiogram from 03/08/2022: EF 60 65%, abnormal left ventricle septal wall motion related to bundle-branch block, grade 1 diastolic dysfunction heparin drip held this a.m. for liver biopsy. Will resume heparin drip postoperatively # urinary tract infection -no leukocytosis however UA does appear to have signs of UTI -antibiotics: Rocephin -IV fluids: Normal saline 1 L CTA with mild left hydronephrosis and hydroureter. Urology consulted suspect related to UTI Renal ultrasound with no findings of hydronephrosis or hydroureter # hypokalemia -potassium low at 2.9 given 20 mEq IV potassium chloride, 40 mg IV potassium chloride x2 -will continue to trend, secondary to poor p.o. intake -PT and OT consulted for weakness -essential hypertension: Losartan -CLL: On Rituxan chemotherapy, she missed her last session on 03/04, last dose was to 4 weeks prior. Bendamustine Rituxan cycle 1 was 11/12/21. Pain control: Tylenol, [place], morphine -patient on aspirin 81 for secondary erythrocytosis -for anemia was on ferrous sulfate and B12 supplements ileocolic lymphadenopathy liver masses and right colon thickening GI consult oncology consult. GI was planning to do colonoscopy for right colon thickening. Have discussed plan is to get liver biopsy today hence planned colonoscopy will be held or canceled at this point until biopsy resolved from the liver comes back. Left hydronephrosis and hydroureter urology consult See above Endometrial thickening new finding Diet: Regular DVT prophylaxis: Started on Eliquis Code status: Full code Disposition: PT OT to see Subjective Date/time seen: 04/02/22 18:31 Interval history: Patient is a 77-year-old female with past medical history of CLL on chemotherapy, essential hypertension presents to ED with complaints of dyspnea.? Patient states she has had dyspnea for several months on and off, now her dyspnea significant enough to bring into the ED. She feels that she takes more breaks when walking because of getting short of breath.? She notices this the most when she is walking her dog.? She has complaints of dyspnea and had her dose of Rituxan chemotherapy held on 03/04, subsequently had echocardiogram 03/07 showing grade 1 diastolic dysfunction otherwise normal EF. In the ED:? CTA chest abdomen pelvis consistent with right pulmonary embolism.? She was tachypneic but otherwise breathing comfortably on room air..? She has been started on Eliquis.? For the UTI she has been started on Rocephin.? Patient has hypokalemia 2.9 and given 20
[2022-04-02 20:44] LABS: Partial Thromboplastin Time 93.4 SECONDS (22.3-36.8)
[2022-04-03 03:00] VITALS: BP 114/64; PULSE 75; RESP 21; TEMP 36.4; O2SAT 97
[2022-04-03 03:18] LABS: Basophils Percent Auto 0.5 % (0.2-1.2); Eosinophils Absolute Auto 0.5 K/mm3 (0-0.3); Eosinophils Percent Auto 8.6 % (0-4.4); Hematocrit 23.8 % (37.0-47.0); Hemoglobin 7.4 g/dL (12.0-15.0); Immature Granulocyte Absolute 0.06 K/mm3 (0.00-0.031); Lymphocytes Absolute Auto 0.56 K/mm3 (0.9-3.2); Lymphocytes Percent Auto 9.6 % (18.3-44.2); Mean Corpuscular HGB Conc 31.1 g/dl (32-36); Mean Corpuscular Hemoglobin 29.5 pg (26-34); Mean Corpuscular Volume 94.8 fl (80-100); Mean Platelet Volume 9.9 fl (7.4-10.4); Monocytes Absolute Auto 0.5 K/mm3 (0.1-0.6); Monocytes Percent Auto 9.3 % (2.6-8.5); Neutrophils Absolute Auto 4.1 K/mm3 (1.3-6.7); Platelet Count Result 350 k/mm3 (150-375); Red Blood Count 2.51 M/mm3 (4.2-5.4); Red Cell Distribution Width 14.6 % (11.5-14.5); White Blood Count 5.8 K/mm3 (4.5-10.0)
[2022-04-03 03:27] LABS: Anion Gap 4 mmol/L (8-16); Blood Urea Nitrogen 9 mg/dL (7-17); Calcium 7.8 mg/dL (8.4-10.2); Carbon Dioxide 24 mmol/L (22-30); Chloride 110 mmol/L (98-107); Estimated CRCL calculation 46 ml/min; Estimated Glomerular Filt Rate 54; Glucose 102 mg/dL (65-110); Magnesium 1.5 mg/dL (1.6-2.3); Potassium 3.6 mmol/L (3.4-5.0); Sodium 138 mmol/L (137-145)
[2022-04-03 03:31] LABS: Partial Thromboplastin Time 88.5 SECONDS (22.3-36.8)
[2022-04-03] MEDS: HEPARIN SOD/D5W 100 UNITS/ML 25,000 UNITS/250 ML BAG 12 UNITS IV CONT ×2 (03:48→12:40)
[2022-04-03 06:46] VITALS: BP 124/57; PULSE 77; RESP 20; TEMP 36.7; O2SAT 98
[2022-04-03 08:06] LABS: Partial Thromboplastin Time 77.4 SECONDS (22.3-36.8)
[2022-04-03] MEDS: ASPIRIN 81 MG ENTERIC TABLET PO (08:44)
[2022-04-03] MEDS: POTASSIUM CHLORIDE 20 MEQ TABLET 40 MEQ PO (08:44)
[2022-04-03] MEDS: CHOLECALCIFEROL 1,000 UNITS TABLET 4000 UNITS PO (08:45)
[2022-04-03] MEDS: CYANOCOBALAMIN 500 MCG TABLET 2500 MCG PO (08:45)
[2022-04-03] MEDS: MAGNESIUM SULF 2 GM/WATER 50ML 2 GM/50 ML BAG IVPB (09:39)
--- NOTE | 2022-04-03 12:00 | PM.IMPN ---
Progress Note: A&P Assessment and Plan (1) Pulmonary embolism on right: Code(s): I26.99 - Other pulmonary embolism without acute cor pulmonale Status: Acute Assessment and Plan: 04/03/2022:interval history: Feels pretty good. sitting in the chair She denies any shortness of breath. Legs are sore. Denies any abdominal pain nausea vomiting diarrhea. No cough. Discussed findings with patient. patient had US guided 2.7 cm hypoechoic liver mass biopsy of 04/01 for possible metastatic colon cancer, also patient stats she had been immobile for few weeks prior to coming to ER and has provoked PE and DVT also patent is hypercoagulable state due to cancer, patient has UTI with E. coli being treated with ceftriaxone. will continue to monitor possibly discharge patient home tomorrow. (2) Acute UTI: Code(s): N39.0 - Urinary tract infection, site not specified Status: Acute (3) Generalized weakness: Code(s): R53.1 - Weakness Status: Acute Plan # new segmental PE provoked likely by cancer -patient has underlying CLL making her hypercoagulable -PE found on CTA chest, likely etiology for her symptoms of dyspnea - venous duplex positive for DVT in bilateral lower limbs. Left more than right - started on Eliquis however might need to switch to short-acting for possible need for biopsy/colonoscopy /urological procedure. She received Eliquis this morning. Will hold any further Eliquis and switch to heparin drip 03/31/2022 -echocardiogram from 03/08/2022: EF 60 65%, abnormal left ventricle septal wall motion related to bundle-branch block, grade 1 diastolic dysfunction heparin drip held this a.m. for liver biopsy. Will resume heparin drip postoperatively # urinary tract infection -no leukocytosis however UA does appear to have signs of UTI -antibiotics: Rocephin -IV fluids: Normal saline 1 L CTA with mild left hydronephrosis and hydroureter. Urology consulted suspect related to UTI Renal ultrasound with no findings of hydronephrosis or hydroureter # hypokalemia -potassium low at 2.9 given 20 mEq IV potassium chloride, 40 mg IV potassium chloride x2 -will continue to trend, secondary to poor p.o. intake -PT and OT consulted for weakness -essential hypertension: Losartan -CLL: On Rituxan chemotherapy, she missed her last session on 03/04, last dose was to 4 weeks prior. Bendamustine Rituxan cycle 1 was 11/12/21. Pain control: Tylenol, [place], morphine -patient on aspirin 81 for secondary erythrocytosis -for anemia was on ferrous sulfate and B12 supplements ileocolic lymphadenopathy liver masses and right colon thickening GI consult oncology consult. GI was planning to do colonoscopy for right colon thickening. Have discussed plan is to get liver biopsy today hence planned colonoscopy will be held or canceled at this point until biopsy resolved from the liver comes back. Left hydronephrosis and hydroureter urology consult See above Endometrial thickening new finding Diet: Regular DVT prophylaxis: Started on Eliquis Code status: Full code Disposition: PT OT to see Subjective Date/time seen: 04/03/22 12:00 Interval history: Patient is a 77-year-old female with past medical history of CLL on chemotherapy, essential hypertension presents to ED with complaints of dyspnea.? Patient states she has had dyspnea for several months on and off, now her dyspnea significant enough to bring into the ED. She feels that she takes more breaks when walking because of getting short of breath.? She notices this the most when she is walking her dog.? She has complaints of dyspnea and had her dose of Rituxan chemotherapy held on 03/04, subsequently had echocardiogram 03/07 showing grade 1 diastolic dysfunction otherwise normal EF. In the ED:? CTA chest abdomen pelvis consistent with right pulmonary embolism.? She was tachypneic but otherwise breathing comfortably on room air..? She has been started on Eliquis.? F
[2022-04-03] MEDS: cefTRIAXone 2 GM in SODIUM CHLORIDE 0.9% IV 100 ML 200 ML IVPB (14:42)
[2022-04-03] MEDS: CENTRAL LINE FLUSH 10 ML IV PUSH (14:43)
[2022-04-03 20:00] VITALS: PULSE 77; RESP 20; O2SAT 98
[2022-04-03 22:00] VITALS: BP 109/50; PULSE 86; RESP 18; TEMP 37.2; O2SAT 100
[2022-04-04] MEDS: CENTRAL LINE FLUSH 10 ML IV PUSH (05:16)
[2022-04-04 05:49] LABS: Basophils Absolute Auto 0.1 K/mm3 (0.0-0.1); Basophils Percent Auto 0.9 % (0.2-1.2); Eosinophils Absolute Auto 0.6 K/mm3 (0-0.3); Eosinophils Percent Auto 9.9 % (0-4.4); Hemoglobin 7.4 g/dL (12.0-15.0); Immature Granulocyte Absolute 0.14 K/mm3 (0.00-0.031); Immature Granulocyte Percent A 2.5 % (0-0.5); Lymphocytes Absolute Auto 0.48 K/mm3 (0.9-3.2); Lymphocytes Percent Auto 8.7 % (18.3-44.2); Mean Corpuscular HGB Conc 30.8 g/dl (32-36); Mean Corpuscular Hemoglobin 29.6 pg (26-34); Mean Platelet Volume 9.6 fl (7.4-10.4); Monocytes Absolute Auto 0.7 K/mm3 (0.1-0.6); Monocytes Percent Auto 11.9 % (2.6-8.5); Neutrophils Absolute Auto 3.7 K/mm3 (1.3-6.7); Neutrophils Percent Auto 66.1 % (45.5-73.1); Platelet Count Result 339 k/mm3 (150-375); Red Cell Distribution Width 14.8 % (11.5-14.5); White Blood Count 5.5 K/mm3 (4.5-10.0)
[2022-04-04 06:00] VITALS: BP 109/58; PULSE 69; RESP 16; TEMP 36.4; O2SAT 99
[2022-04-04 06:00] LABS: Anion Gap 5 mmol/L (8-16); Blood Urea Nitrogen 10 mg/dL (7-17); Calcium 7.9 mg/dL (8.4-10.2); Carbon Dioxide 24 mmol/L (22-30); Chloride 110 mmol/L (98-107); Estimated CRCL calculation 42 ml/min; Estimated Glomerular Filt Rate 48; Glucose 98 mg/dL (65-110); Magnesium 1.9 mg/dL (1.6-2.3); Potassium 4.4 mmol/L (3.4-5.0); Sodium 139 mmol/L (137-145)
[2022-04-04 06:02] LABS: Partial Thromboplastin Time 74.6 SECONDS (22.3-36.8)
[2022-04-04] MEDS: HEPARIN SOD/D5W 100 UNITS/ML 25,000 UNITS/250 ML BAG 12 UNITS IV CONT (08:10)
[2022-04-04] MEDS: CYANOCOBALAMIN 500 MCG TABLET 2500 MCG PO (09:52)
[2022-04-04] MEDS: ASPIRIN 81 MG ENTERIC TABLET PO (09:52)
[2022-04-04] MEDS: CHOLECALCIFEROL 1,000 UNITS TABLET 4000 UNITS PO (09:52)
[2022-04-04 14:00] VITALS: BP 106/43; PULSE 79; RESP 16; TEMP 36.8; O2SAT 100
[2022-04-04] MEDS: cefTRIAXone 2 GM in SODIUM CHLORIDE 0.9% IV 100 ML 200 ML IVPB (14:53)
--- NOTE | 2022-04-04 16:32 | PM.DS ---
DS: Admitting Diagnosis Discharge Date 04/04/2022 Admitting Diagnosis dyspnea DS: Discharge Diagnosis Discharge Diagnosis (1) Pulmonary embolism on right: Code(s): I26.99 - Other pulmonary embolism without acute cor pulmonale Status: Acute Assessment and Plan: 04/03/2022:interval history: Feels pretty good. sitting in the chair She denies any shortness of breath. Legs are sore. Denies any abdominal pain nausea vomiting diarrhea. No cough. Discussed findings with patient. patient had US guided 2.7 cm hypoechoic liver mass biopsy of 04/01 for possible metastatic colon cancer, also patient stats she had been immobile for few weeks prior to coming to ER and has provoked PE and DVT also patent is hypercoagulable state due to cancer, patient has UTI with E. coli being treated with ceftriaxone. will continue to monitor possibly discharge patient home tomorrow. (2) Acute UTI: Code(s): N39.0 - Urinary tract infection, site not specified Status: Acute (3) Generalized weakness: Code(s): R53.1 - Weakness Status: Acute Plan # new segmental PE provoked likely by cancer -patient has underlying CLL making her hypercoagulable -PE found on CTA chest, likely etiology for her symptoms of dyspnea - venous duplex positive for DVT in bilateral lower limbs. Left more than right - started on Eliquis however might need to switch to short-acting for possible need for biopsy/colonoscopy /urological procedure. She received Eliquis this morning. Will hold any further Eliquis and switch to heparin drip 03/31/2022 -echocardiogram from 03/08/2022: EF 60 65%, abnormal left ventricle septal wall motion related to bundle-branch block, grade 1 diastolic dysfunction heparin drip held this a.m. for liver biopsy. Will resume heparin drip postoperatively # urinary tract infection -no leukocytosis however UA does appear to have signs of UTI -antibiotics: Rocephin -IV fluids: Normal saline 1 L CTA with mild left hydronephrosis and hydroureter. Urology consulted suspect related to UTI Renal ultrasound with no findings of hydronephrosis or hydroureter # hypokalemia -potassium low at 2.9 given 20 mEq IV potassium chloride, 40 mg IV potassium chloride x2 -will continue to trend, secondary to poor p.o. intake -PT and OT consulted for weakness -essential hypertension: Losartan -CLL: On Rituxan chemotherapy, she missed her last session on 03/04, last dose was to 4 weeks prior. Bendamustine Rituxan cycle 1 was 11/12/21. Pain control: Tylenol, Cornell, morphine -patient on aspirin 81 for secondary erythrocytosis -for anemia was on ferrous sulfate and B12 supplements ileocolic lymphadenopathy liver masses and right colon thickening GI consult oncology consult. GI was planning to do colonoscopy for right colon thickening. Have discussed plan is to get liver biopsy today hence planned colonoscopy will be held or canceled at this point until biopsy resolved from the liver comes back. Left hydronephrosis and hydroureter urology consult See above Endometrial thickening new finding Diet: Regular DVT prophylaxis: Started on Eliquis Code status: Full code Disposition: PT OT to see DS: Summary Hospital Course Reason for hospitalization: Dyspnea Narrative: Patient is a 77-year-old female with past medical history of CLL on chemotherapy, essential hypertension presents to ED with complaints of dyspnea.? Patient states she has had dyspnea for several months on and off, now her dyspnea significant enough to bring into the ED. She feels that she takes more breaks when walking because of getting short of breath.? She notices this the most when she is walking her dog.? She has complaints of dyspnea and had her dose of Rituxan chemotherapy held on 03/04, subsequently had echocardiogram 03/07 showing grade 1 diastolic dysfunction otherwise normal EF. In the ED:? CTA chest abdomen pelvis consistent with right pulmonary embolism.? Sh
[2022-04-04] MEDS: APIXABAN 5 MG TABLET 10 MG PO (17:27)
--- NOTE | 2022-04-04 17:42 | PC.NURSE ---
[facility] pharmacy called to say that they do not have any eliquis starter packs and will not have any until thursday. They are able to fill eliquis this weekend and give her more on thursday, it just won't be the starter pack. Discussed with Dr. Dennis and he is ok with change as long as she is able to get the medications.
== END 2022-04-04 18:30 | disposition home or self-care (01) | DRG 176 ==
LOC: ANHED 22:34 → ANH3MEDSUR 03-31 01:11
PROVIDERS: Emergency Medicine; Internal Medicine; Internal Medicine Hematology & Oncology; Radiology Diagnostic Radiology; Admitting Provider Student in an Organized Health Care Education/Training Program; Emergency Provider Emergency Medicine; PCP Family Medicine; Visit Provider Family Medicine
DX: I26.99 Other pulmonary embolism without acute cor pulmonale (principal); N39.0 Urinary tract infection, site not specified; C91.10 Chronic lymphocytic leukemia of B-cell type not having achieved remission; D68.69 Other thrombophilia; N13.30 Unspecified hydronephrosis; N13.4 Hydroureter; C78.7 Secondary malignant neoplasm of liver and intrahepatic bile duct; C18.9 Malignant neoplasm of colon, unspecified; I82.453 Acute embolism and thrombosis of peroneal vein, bilateral; I82.413 Acute embolism and thrombosis of femoral vein, bilateral; I82.432 Acute embolism and thrombosis of left popliteal vein; I82.442 Acute embolism and thrombosis of left tibial vein; Z20.822 Contact with and (suspected) exposure to COVID-19; E87.6 Hypokalemia; D75.1 Secondary polycythemia; I10 Essential (primary) hypertension; N28.9 Disorder of kidney and ureter, unspecified; R06.09 Other forms of dyspnea; D64.81 Anemia due to antineoplastic chemotherapy; D63.0 Anemia in neoplastic disease; T45.1X5A Adverse effect of antineoplastic and immunosuppressive drugs, initial encounter; F17.210 Nicotine dependence, cigarettes, uncomplicated; Z79.82 Long term (current) use of aspirin; B96.20 Unspecified Escherichia coli [E. coli] as the cause of diseases classified elsewhere
CPT/HCPCS: 36415; 47000; 71275; 74177; 76775; 76942; 80048; 80053; 81001; 82378; 82607; 82728; 82746; 83540; 83550; 83690; 83735; 85025; 85610; 85730; 87040; 87077; 87086; 87088; 87186; 87636; 88307; 88313; 88342; 93005; 93970; 96361; 96365; 96367; 97110; 97116; 97161; 97165; 97530; 97535; 99285; A9270; G0378; J0696; J1644; J3475; J3480; J7030; J7120; Q9967

== ENCOUNTER 2022-04-07 09:02 | Inpatient (IN) | payer MEDICARE, MEDICAID, SELFPAY ==
[2022-04-07] VITALS (18 sets, daily range): BP systolic 99–150; BP diastolic 46–81; PULSE 77–105; RESP 16–25; TEMP 36.4–36.7; O2SAT 95–100
--- NOTE | ~2022-04-07 | CT_ITS ---
EXAMINATION: CT abdomen pelvis w con DATE: 04/07/2022 10:32 INDICATION: Left lower quadrant abdominal pain. Blood in stool. TECHNIQUE: Computed tomography (CT) of the abdomen and pelvis was performed with 100 mL Omnipaque 350 intravenous contrast. Automated exposure control and iterative reconstruction technique were employe d. The dose-length product was 927.94 mGy-cm. COMPARISON: CT abdomen and pelvis 03/30/2022, 04/07/2017 FINDINGS: The visualized portions of the lung bases and mild atelectasis and mild bronchiectasis. No pleural effusion. The heart size is normal. No pericardial effusion. There are cysts in the liver joesph suring up to 5.5 cm. Again seen are greater than 10 hypodense masses in the liver measuring up to 2.7 cm, consistent with metastatic disease. The gallbladder is normal. There is a 10 mm hypodense mass i n the peripheral spleen with interval improvement, consistent with infarct. Calcifications in the spl een are consistent with old granulomatous disease. Calcifications in the pancreas are consistent with chronic pancreatitis. The adrenal glands are normal. There are cysts in right kidney measuring up to 7 mm. There is mild right hydronephrosis and hydroureter. There is diverticulosis of the colon witho ut evidence of diverticulitis. There is wall thickening of the ascending colon. The appendix is andra l. The distal ileum is mildly dilated, consistent with partial obstruction. There is thickening of th e endometrial complex to 13 mm. There is trace pelvic ascites. There is ileocolic lymphadenopathy wit h the largest node measuring 5.3 x 3.1 cm. IMPRESSION: 1. Irregular wall thickening of the right colon, consistent with primary adenocarcinoma. 2. Ileocolic lymphadenopathy and liver masses, consistent with metastatic disease. 3. Mildly dilated distal ileum, consistent with partial obstruction at the ileocecal valve. 4. Mild right hydronephrosis and hydroureter. 5. Thickening of the endometrial complex. The differential diagnosis includes endometrial hyperplasia , polyp, and carcinoma. Reviewed, dictated and finalized at location A. R MACHINE OPERATOR IMPRESSION: 1. Irregular wall thickening of the right colon, consistent with primary adenoc arcinoma. 2. Ileocolic lymphadenopathy and liver masses, consistent with metastatic disea se. 3. Mildly dilated distal ileum, consistent with partial obstruction at the ileo cecal valve. 4. Mild right hydronephrosis and hydroureter. 5. Thickening of the endometrial complex. The differential diagnosis includes e ndometrial hyperplasia, polyp, and carcinoma.
[2022-04-07 10:00] LABS: Basophils Absolute Auto 0.1 K/mm3 (0.0-0.1); Basophils Percent Auto 0.6 % (0.2-1.2); Eosinophils Absolute Auto 0.3 K/mm3 (0-0.3); Eosinophils Percent Auto 3.9 % (0-4.4); Hematocrit 24.1 % (37.0-47.0); Hemoglobin 7.4 g/dL (12.0-15.0); Immature Granulocyte Absolute 0.17 K/mm3 (0.00-0.031); Immature Granulocyte Percent A 2.2 % (0-0.5); Lymphocytes Absolute Auto 0.73 K/mm3 (0.9-3.2); Lymphocytes Percent Auto 9.5 % (18.3-44.2); Mean Corpuscular HGB Conc 30.7 g/dl (32-36); Mean Corpuscular Hemoglobin 30.7 pg (26-34); Mean Platelet Volume 9.6 fl (7.4-10.4); Monocytes Absolute Auto 0.7 K/mm3 (0.1-0.6); Monocytes Percent Auto 8.7 % (2.6-8.5); Neutrophils Absolute Auto 5.8 K/mm3 (1.3-6.7); Neutrophils Percent Auto 75.1 % (45.5-73.1); Platelet Count Result 468 k/mm3 (150-375); Red Blood Count 2.41 M/mm3 (4.2-5.4); Red Cell Distribution Width 15.9 % (11.5-14.5); White Blood Count 7.7 K/mm3 (4.5-10.0)
[2022-04-07 10:08] LABS: Alanine Aminotransferase 20 U/L (6-35); Alkaline Phosphatase 59 U/L (38-126); Anion Gap 9 mmol/L (8-16); Aspartate Amino Transferase 39 U/L (14-36); Bilirubin,Total 0.4 mg/dL (0.2-1.3); Blood Urea Nitrogen 17 mg/dL (7-17); Calcium 8.7 mg/dL (8.4-10.2); Carbon Dioxide 24 mmol/L (22-30); Chloride 106 mmol/L (98-107); Estimated Glomerular Filt Rate > 60; Glucose 119 mg/dL (65-110); Sodium 139 mmol/L (137-145)
[2022-04-07] MEDS: SODIUM CHLORIDE 0.9% IV 1,000 ML 150 ML IV CONT (10:11)
[2022-04-07 10:12] LABS: INR 1.9; Prothrombin Time 21.3 Seconds (11.1-14.7)
--- NOTE | 2022-04-07 12:43 | ED.ABDPAIN ---
HPI - Abdominal Pain General Chief Complaint: Abdominal Pain Stated Complaint: bloody stools Time Seen by Provider: 04/07/22 09:06 Source: patient Mode of arrival: EMS Limitations: no limitations History of Present Illness HPI narrative: 77-year-old with a history of , HTN ,CLL ,adenocarcinoma of the colon recent diagnosis of PE was discharged home few days ago on Eliquis here with complaints of rectal bleeding since this morning patient states that she felt extremely dizzy and weak and as per the EMS her blood pressure was low and was given IV fluids. Patient now complains of left lower abdominal pain. She denies any nausea or vomiting. MD elicited complaint: abdominal pain Pertinent past history: other (Adenocarcinoma of the colon) Onset (ago): hour(s) Pain Consistency: now resolved Location: LLQ Severity: moderate Quality: aching Migration to: no migration Exacerbating factors: nothing Relieving factors: nothing Context: confirms other (Recent use of anticoagulant) Associated symptoms: denies other symptoms Related Data Home Medications Medication Instructions Recorded Confirmed acetaminophen 650 mg 1,300 mg PO Q12H PRN Pain 10/21/21 03/31/22 tablet,extended release aspirin 81 mg tablet,delayed 81 mg PO DAILY 10/21/21 03/31/22 release (Adult Low Dose Aspirin) cholecalciferol (vitamin D3) 100 100 mcg PO DAILY 10/21/21 03/31/22 mcg (4,000 unit) tablet cyanocobalamin (vitamin B-12) 2,500 mcg PO DAILY 10/21/21 03/31/22 2,500 mcg tablet meloxicam 15 mg tablet 1 tablet PO QACLUNCH PRN Pain 10/21/21 03/31/22 tramadol 50 mg tablet 1 tablet PO Q6-8H PRN Pain 10/21/21 03/31/22 Allergies Allergy/AdvReac Type Severity Reaction Status Date / Time No Known Allergies Allergy Verified 02/05/22 12:22 Review of Systems Review of Systems: All systems reviewed & are unremarkable except as noted in HPI and below Constitutional: Constitutional: Reports no additional constitutional complaints Eyes: Eyes: Reports no additional eye complaints ENT: Reports system reviewed and no additional complaints, except as documented Cardiovascular: Cardiovascular: Reports no additional cardiovascular complaints Respiratory: Respiratory: Reports no additional respiratory complaints Gastrointestinal: Gastrointestinal: Reports as per HPI Musculoskeletal: Musculoskeletal: Reports no additional musculoskeletal complaints Neurologic: Reports system reviewed and no additional complaints, except as documented Endocrine: Endocrine: Reports no additional endocrine complaints PMFSH Past Medical History Medical History CLL (chronic lymphocytic leukemia) Hypertension Surgical History Surgical History History of tubal ligation Family History Family History Mother Hypertension Father Asthma Sibling Hypertension Heart disease Social History Social History Years smoked: 55 Smoking status: Current every day smoker Tobacco type: cigarettes Alcohol intake: never Substance use: never Substance use type: does not use Lack of Transportation: No Lack of Food: Never True Current Housing: I Have Housing Concerned About Future Housing: No Difficulty Paying Gas/Electric Bills: No Difficulty Paying for Meds: No Currently Unemployed: No Education: High School Diploma/GED Difficulty w/ Childcare or Family Care: No Additional living arrangements comments: [facility] Gender identity (if verbalized by the patient): Female Spiritual care concerns: No Exam Narrative: GENERAL: Well-appearing, Pale well-nourished, and in no acute distress. HEAD: Normocephalic, atraumatic. EYES: PERRLA and EOMI. NECK: Supple. CHEST: Clear to auscultation. No respiratory distress. HEART:
[2022-04-07 13:31] LABS: Hematocrit 22.7 % (37.0-47.0)
--- NOTE | 2022-04-07 13:55 | PC.NURSE ---
Critical lab results received from lab for Hgb [address] Franco made aware.
--- NOTE | 2022-04-07 15:08 | WPDGICN ---
Assessment and Plan Assessment and plan (1) Abnormal CT scan, gastrointestinal tract: Code(s): R93.3 - Abnormal findings on diagnostic imaging of other parts of digestive tract Status: Acute Assessment and Plan: she had a liver biopsy that found adenocarcinoma consistent with colonic primary. Hence the lesion seen on CT scan is most likely carcinoma the ascending colon. (2) Rectal bleeding: Code(s): K62.5 - Hemorrhage of anus and rectum Status: Acute Assessment and Plan: Until Today, she has never had rectal bleeding. the blood she states was relatively bright red. There was stool mixed with it. her hemoglobin was 8 last week. On arrival here in the emergency room she was 7.4 now it is 7.0. (3) Pulmonary embolism on right: Code(s): I26.99 - Other pulmonary embolism without acute cor pulmonale Status: Acute Assessment and Plan: She had been started on Eliquis last week. Plan She will be admitted. I will keep on clear liquid diet. Anticoagulants will be held at least today. This is tricky with her history of pulmonary embolism. If bleeding persists, then she would need a colonoscopy. GI Consult Note Consult date/time: 04/07/22 15:08 HPI: Cassandra Valdivia is a 77 year old female who presented to the emergency room this morning with complaints of rectal bleeding. She states that last night she passed some blood in again this morning a couple of times the last time she filled the toilet bowl with relatively bright red blood. She was not having any significant pain in the rectum or abdomen but does complain of a soreness in the lower right side of her abdomen. Patient recently was found to have a right colon mass and metastases in the liver. Biopsy of liver did show metastatic adenocarcinoma. She told me that she was not aware of that until I mentioned to just now. She also unfortunately was found to have an acute pulmonary embolism, and had been started on heparin he during hospitalization and then sent home on Eliquis. She took her last dose last evening. She has not been vomiting and she is not nauseated. She has a past history of having CLL which was found a few years ago. Review of Systems Review of Systems: All systems reviewed & are unremarkable except as noted in HPI and below PMFSH Past Medical History Medical History CLL (chronic lymphocytic leukemia) Hypertension Surgical History Surgical History History of tubal ligation Family History Family History Mother Hypertension Father Asthma Sibling Hypertension Heart disease Social History Social History Years smoked: 55 Smoking status: Current every day smoker Tobacco type: cigarettes Alcohol intake: never Substance use: never Substance use type: does not use Lack of Transportation: No Lack of Food: Never True Current Housing: I Have Housing Concerned About Future Housing: No Difficulty Paying Gas/Electric Bills: No Difficulty Paying for Meds: No Currently Unemployed: No Education: High School Diploma/GED Difficulty w/ Childcare or Family Care: No Additional living arrangements comments: [facility] Gender identity (if verbalized by the patient): Female Spiritual care concerns: No Meds Home Medications and Allergies Home Medications Medication Instructions Recorded Confirmed Type acetaminophen 650 mg 1,300 mg PO Q12H PRN Pain 10/21/21 03/31/22 History tablet,extended release aspirin 81 mg tablet,delayed 81 mg PO DAILY 10/21/21 03/31/22 History release (Adult Low Dose Aspirin) cholecalciferol (vitamin D3) 100 100 mcg PO DAILY 10/21/21 03/31/22 History mcg (4,000 unit) tablet cyanocobalamin (v
--- NOTE | 2022-04-07 15:47 | PM.IMHP ---
H&P: HPI History of Present Illness Date/Time: 04/07/22 15:47 Chief Complaint: Abdominal pain and bloody stools. Narrative: This is a 77-year-old female patient who has a history of pulmonary emboli. The patient was discharged from this hospital on 04/04/2022. She had liver mass that was biopsied on 04/01 for possible metastatic colon cancer. She had a provoked PE DVT and is in a hypercoagulable state due to cancer. She recently was treated for UTI. She has underlying CLL which also makes her hypercoagulable. The patient has been on Eliquis. The patient came in today because she had complaints of rectal bleeding since this morning. She also feels extremely dizzy and weak. She also became hypotensive and was given IV fluids. She is also complaining of lower abdominal pain. GI has been consulted and has already seen the patient. Patient's H&H was 7.4 and 24.1 when she came into the emergency room which was similar to the 04/04/2022 findings. Repeat H&H today was 7.0 and 22.7. Patient has type and screen and will get 1 unit of packed red blood cells. Initially the patient was admitted to inpatient status and now changed to observation on the date of service of 04/07/2022. Review of Systems Review of Systems: See H&P All systems reviewed & are unremarkable except as noted in HPI and below Constitutional: Constitutional: Reports as per HPI and Reports no additional constitutional complaints Eyes: Eyes: Reports as per HPI and Reports no additional eye complaints ENT: Reports system reviewed and no additional complaints, except as documented and Reports Normal hearing present Cardiovascular: Cardiovascular: Reports no additional cardiovascular complaints Respiratory: Respiratory: Reports no additional respiratory complaints and Reports no additional respiratory complaints Gastrointestinal: Gastrointestinal: Reports as per HPI and Reports no additional gastrointestinal complaints Musculoskeletal: Musculoskeletal: Reports no additional musculoskeletal complaints Integumentary/Breasts: Skin/Breast: Reports system reviewed and no additional complaints, except as docu and Reports as per HPI Neurologic: Reports system reviewed and no additional complaints, except as documented, Reports as per HPI and Reports Normal hearing present Psychiatric: Psychiatric: Reports no additional psychiatric complaints and Reports as per HPI Endocrine: Endocrine: Reports no additional endocrine complaints Hematologic/Lymphatic: Hematologic/Lymphatic: Reports no additional hematologic/lymphatic complaints Allergic/Immunologic: Allergic/Immunologic: Reports no additional allergic/immunologic complaints PMFSH Past Medical History Medical History (Updated 04/07/22 @ 16:06 by Roselia Barakat NP) Acute UTI CLL (chronic lymphocytic leukemia) Hypertension Pulmonary embolism on right Surgical History Surgical History History of tubal ligation Family History Family History Mother Hypertension Father Asthma Sibling Hypertension Heart disease Social History Social History (Updated 04/07/22 @ 16:01 by Roselia Barakat NP) Social History: The patient is and lives with her . She is retired. She is a current smoker. 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 Code status full code Years smoked: 55 Smoking status: Current every day smoker Tobacco type: cigarettes Alcohol intake: never Substance use: never Substance use type: does not use Lack of Transportation: No Lack of Food: Never True Current Housing: I Have Housing Concerned About Future Housing: No Difficulty Paying Gas/Electric Bills: No Difficulty Paying for Meds: No Currently Unemployed: No Education: High School Diploma/GED Difficulty w/ Childcare or Family Care: No Addition
--- NOTE | 2022-04-07 17:27 | ADMGEN ---
This patient, Cassandra Valdivia, was admitted to IMU Room 209-01. Patient/family oriented to hospital policies and general routines including ID bracelet, bed and alarms, visiting hours, pain management, procedures, bathroom and other care routines, personal items, smoking policy, room service/diet, and visiting hours. Information on how to activate the Rapid Response Team has been discussed. Patient/Family are encouraged to report perceived risks to care and to ask questions if they do not understand what they are told or what they should do.
[2022-04-07 17:47] LABS: SARS-CoV-2 RNA PCR Negative
[2022-04-07 18:40] LABS: Hematocrit 28.7 % (37.0-47.0)
[2022-04-07] MEDS: SODIUM CHLORIDE 0.9% IV 1,000 ML 125 ML IV CONT (20:04)
[2022-04-08] VITALS (14 sets, daily range): BP systolic 116–150; BP diastolic 47–73; PULSE 70–90; RESP 14–20; TEMP 36.1–36.8; O2SAT 97–100; BMI 32.1
[2022-04-08 03:44] LABS: Hematocrit 23.3 % (37.0-47.0); Hemoglobin 7.5 g/dL (12.0-15.0)
[2022-04-08 03:58] LABS: Anion Gap 5 mmol/L (8-16); Blood Urea Nitrogen 18 mg/dL (7-17); Calcium 8.1 mg/dL (8.4-10.2); Carbon Dioxide 23 mmol/L (22-30); Chloride 109 mmol/L (98-107); Estimated CRCL calculation 50 ml/min; Estimated Glomerular Filt Rate > 60; Glucose 93 mg/dL (65-110); Potassium 3.7 mmol/L (3.4-5.0); Sodium 137 mmol/L (137-145)
[2022-04-08] MEDS: SODIUM CHLORIDE 0.9% IV 1,000 ML 125 ML IV CONT ×2 (04:53→13:35)
--- NOTE | 2022-04-08 07:16 | WPDGIPROGNO ---
Progress Note: A&P Assessment and Plan (1) Abnormal CT scan, gastrointestinal tract: Code(s): R93.3 - Abnormal findings on diagnostic imaging of other parts of digestive tract Status: Acute Assessment and Plan: she had a liver biopsy that found adenocarcinoma consistent with colonic primary. Hence the lesion seen on CT scan is most likely carcinoma the ascending colon. (2) Rectal bleeding: Code(s): K62.5 - Hemorrhage of anus and rectum Status: Acute Assessment and Plan: Until Today, she has never had rectal bleeding. the blood she states was relatively bright red. There was stool mixed with it. her hemoglobin was 8 last week. On arrival here in the emergency room she was 7.4 now it is 7.0. Despite transfusion with 1 unit her hemoglobin is back down to 7.5 after going up to 9 yesterday. I will schedule her for colonoscopy to be done tomorrow. I discussed the procedure in prep with her. I told her that is possible that the bleeding may not be able to be controlled at could potentially be aggravated by the procedure. (3) Pulmonary embolism on right: Code(s): I26.99 - Other pulmonary embolism without acute cor pulmonale Status: Acute Assessment and Plan: She had been started on Eliquis last week. This is currently being held due to bleeding. Plan She will be admitted. I will keep on clear liquid diet. Anticoagulants will be held at least today. This is tricky with her history of pulmonary embolism. If bleeding persists, then she would need a colonoscopy. Subjective Date/time seen: 04/08/22 07:16 she feels good today. She did have another bloody bowel movement during the night. No new symptoms. She still has vague discomfort in the right lower quadrant. She is tolerating a clear liquids. We discussed the fact that the because of the bleeding will need to perform a colonoscopy. Hopefully we will be able to affect some change on the cause of bleeding. If as I assume it is the tumor that is bleeding it may respond to hemo spray. Review of Systems Review of Systems: All systems reviewed & are unremarkable except as noted in HPI and below Exam Const: General: alert Nutritional Appearance: overweight Orientation/consciousness: patient oriented x3 Resp: Auscultation: clear to auscultation bilaterally Cardio: Rhythm: regular rhythm GI: Inspection: normal to inspection GI Palp: Yes Soft to palpation, No Tenderness to palpation present (GI) and Yes No hepatosplenomegaly present Auscultation: normal bowel sounds Skin: General skin exam: no petechiae, no purpura and pallor Neuro: General: patient oriented x3 Objective Data Vital Signs Vital Signs: Vital Signs - 24 hr 04/07/22 09:11 04/07/22 09:32 04/07/22 10:09 Temperature 36.6 C Pulse Rate 99 94 90 Respiratory Rate 16 19 22 H Blood Pressure 135/71 119/61 108/54 L Pulse Oximetry 100 99 97 Oxygen Delivery 04/07/22 10:16 04/07/22 10:45 04/07/22 11:00 Temperature Pulse Rate 87 87 82 Respiratory Rate 22 H 21 H 19 Blood Pressure 110/58 L Pulse Oximetry 96 95 98 Oxygen Delivery 04/07/22 11:53 04/07/22 12:46 04/07/22 13:01 Temperature Pulse Rate 88 84 83 Respiratory Rate 23 H 23 H 22 H Blood Pressure 110/59 L 119/59 L Pulse Oximetry 97 98 97 Oxygen Delivery 04/07/22 15:40 04/07/22 17:10 04/07/22 15:26 Temperature 36.6 C 36.7 C Pulse Rate 92 82 105 H Respiratory Rate 25 H 18 23 H Blood Pressure 146/72 H 121/66 150/81 H Pulse Oximetry 100 100 Oxygen Delivery 04/07/22 16:31 04/07/22 16:46 04/07/22 17:33 Temperature 36.6 C Pulse Rate 81 78 99 Respiratory Rate 23 H 23 H 18 Blood Pressure 106/48 L 99/73 L 131/57 L Pulse Oximetry 98 100 100 Oxygen Delivery 04/07/22 20:00 04/07/22 20:00 04/07/22 22:00 Temperature 36.6 C Pulse Rate 78 85 82 Respiratory Rate 18 Blood Pressure 112/58 L Pulse Oximetry 99 Oxygen Delivery
[2022-04-08] MEDS: CYANOCOBALAMIN 500 MCG TABLET 2500 MCG PO (08:58)
[2022-04-08] MEDS: CHOLECALCIFEROL 1,000 UNITS TABLET 4000 UNITS PO (08:58)
--- NOTE | 2022-04-08 11:37 | PM.IMPN ---
Progress Note: A&P Assessment and Plan (1) Acute lower GI bleeding: Code(s): K92.2 - Gastrointestinal hemorrhage, unspecified Status: Acute Assessment and Plan: - hold Eliquis and aspirin -GI has been consulted. plan for colonoscopy tomorrow. -patient has a history of primary Adenocarcinoma of the colon. -she is also in a hypercoagulable state with a history of PEs and DVTs. -continue with IV fluids -continue with clear liquids. (2) CLL (chronic lymphocytic leukemia): Code(s): C91.10 - Chronic lymphocytic leukemia of B-cell type not having achieved remission Status: Acute Assessment and Plan: -consult Hematology Oncology. (3) Hypertension: Code(s): I10 - Essential (primary) hypertension Status: Acute Assessment and Plan: -the patient was hypotensive earlier so we will hold her blood pressure medicine for now. (4) Pulmonary embolism on right: Code(s): I26.99 - Other pulmonary embolism without acute cor pulmonale Status: Acute Assessment and Plan: Eliquis is currently on hold due to GI bleed. Subjective Date/time seen: 04/08/22 11:37 no abdominal pain. No bleeding per rectum this morning with bowel movements Review of Systems Review of Systems: All systems reviewed & are unremarkable except as noted in HPI and below Exam Const: General: alert Nutritional Appearance: overweight Orientation/consciousness: patient oriented x3 Resp: Auscultation: clear to auscultation bilaterally Cardio: Rhythm: regular rhythm GI: Inspection: normal to inspection GI Palp: Yes Soft to palpation, No Tenderness to palpation present (GI) and Yes No hepatosplenomegaly present Auscultation: normal bowel sounds Skin: General skin exam: no petechiae, no purpura and pallor Neuro: General: patient oriented x3 Objective Data Vital Signs Vital Signs: Vital Signs - 24 hr 04/07/22 11:53 04/07/22 12:46 04/07/22 13:01 Temperature Pulse Rate 88 84 83 Respiratory Rate 23 H 23 H 22 H Blood Pressure 110/59 L 119/59 L Pulse Oximetry 97 98 97 Oxygen Delivery 04/07/22 15:40 04/07/22 17:10 04/07/22 15:26 Temperature 97.8 F 98.1 F Pulse Rate 92 82 105 H Respiratory Rate 25 H 18 23 H Blood Pressure 146/72 H 121/66 150/81 H Pulse Oximetry 100 100 Oxygen Delivery 04/07/22 16:31 04/07/22 16:46 04/07/22 17:33 Temperature 97.9 F Pulse Rate 81 78 99 Respiratory Rate 23 H 23 H 18 Blood Pressure 106/48 L 99/73 L 131/57 L Pulse Oximetry 98 100 100 Oxygen Delivery 04/07/22 20:00 04/07/22 20:00 04/07/22 22:00 Temperature 97.9 F Pulse Rate 78 85 82 Respiratory Rate 18 Blood Pressure 112/58 L Pulse Oximetry 99 Oxygen Delivery 04/07/22 23:28 04/08/22 00:00 04/07/22 20:00 Temperature 97.6 F Pulse Rate 77 70 Respiratory Rate 18 Blood Pressure 106/46 L Pulse Oximetry 97 Oxygen Delivery Room Air 04/08/22 00:00 04/08/22 02:00 04/08/22 04:00 Temperature Pulse Rate 78 90 Respiratory Rate Blood Pressure Pulse Oximetry Oxygen Delivery Room Air 04/08/22 04:00 04/08/22 04:00 04/08/22 06:00 Temperature 98.0 F Pulse Rate 82 82 Respiratory Rate 20 Blood Pressure 150/64 H Pulse Oximetry 97 Oxygen Delivery Room Air 04/08/22 08:00 Temperature 97.9 F Pulse Rate 84 Respiratory Rate 18 Blood Pressure 116/73 Pulse Oximetry 99 Oxygen Delivery Intake/Output Intake/Output: Intake & Output 04/05/22 04/06/22 04/07/22 04/08/22 23:59 23:59 23:59 23:59 Intake Total 1590 / 1590 1350 / 1350 Output Total 300 / 300 Balance 1590 / 1590 1050 / 1050 Meds/Results Medications: Active Medications Generic Name Dose Route Start Last Admin Trade Name Freq PRN Reason Stop Dose Admin Acetaminophen 650 mg 04/07/22 12:54 Acetaminophen 325 Mg Tablet PO Q4H PRN Mild Pain (1-3) or Fever Hydrocodone Bitart/Acetaminophen 1 tab 04/07/22 21:54 Hydr
--- NOTE | 2022-04-08 13:06 | PDONCCN ---
HPI - Date of Consult Date/Time: 04/08/22 13:06 Requesting Physician: Tai Dennis MD Primary Care Provider: Chente Whiteside MD - Consult Narrative Reason for consult: Metastatic colon cancer Narrative: Cassandra Valdivia is a 77 year old female with recent diagnosis of metastatic colon cancer status post ultrasound-guided liver biopsy done on April 01, 2022. Patient also has a history of chronic lymphocytic leukemia diagnosed in March 2017 and received chemotherapy with bendamustine Rituxan with cycle 4 completed last month. Patient now came into the hospital with abdominal pain and bloody stool. She was started on Eliquis due to recent diagnosis of pulmonary embolism and DVT. Her hemoglobin was found to be 7.4. She received 1 unit of packed red blood satisfaction last night. She denies any further bleeding. She remains quite tired and fatigued. Eliquis has been discontinued. She was seen by the gastroenterology service and plan for colonoscopy noted. She denies any other new complaints. Review of Systems - Review of Systems All systems reviewed & are unremarkable except as noted in HPI and bel - Neurologic Reports system reviewed and no additional complaints, except as documented, Reports hearing normal [facility] Medical History: Medical History (Last Updated 04/07/22 @ 16:06 by Roselia Barakat NP) Acute UTI CLL (chronic lymphocytic leukemia) Hypertension Pulmonary embolism on right Surgical History: Surgical History (Last Reviewed 04/07/22 @ 15:59 by Roselia Barakat NP) History of tubal ligation Family History: Family History (Last Reviewed 04/07/22 @ 15:59 by Roselia Barakat NP) Mother Hypertension Father Asthma Sibling Hypertension Heart disease - Social History Social History: Social History (Last Updated 04/07/22 @ 16:01 by Roselia Barakat NP) Gender Identity: Gender identity (if verbalized by the patient): Female Alcohol Use: Alcohol intake: never Substance Use: Substance use: never Substance use type: does not use Others: Spiritual care concerns: No Smoking Status: Smoking status: Current every day smoker Tobacco type: cigarettes Smoking Pack-years: Smoking cigarettes per day: 1 Years smoked: 50 Smoking pack-years: 2.50 Social Determinants of Health: Has the Lack of Transportation Kept You From Medical Appointments or From Getting Medications?: No Within the Past 12 Months, Were You Worried Whether Your Food Would Run Out Before You Got Money to Buy More?: Never True What is Your Housing Situation Today?: I Have Housing Are You Worried That in the Next 2 Months, You May Not Have Your Own Housing to Live In?: No Do You Have Trouble Paying Your Heating Or Electricity Bill?: No Do You Have Trouble Paying For Medicines?: No Are You Currently Unemployed and Looking for Work?: No Highest Level of Education Completed: High School Diploma/GED Do You Have Trouble With Childcare or the Care of a Family Member?: No Exam - Vital Signs Vital Signs - 24 hr 04/07/22 15:40 04/07/22 17:10 04/07/22 15:26 Temperature 36.6 C 36.7 C Pulse Rate 92 82 105 H Respiratory Rate 25 H 18 23 H Blood Pressure 146/72 H 121/66 150/81 H Pulse Oximetry 100 100 Oxygen Delivery 04/07/22 16:31 04/07/22 16:46 04/07/22 17:33 Temperature 36.6 C Pulse Rate 81 78 99 Respiratory Rate 23 H 23 H 18 Blood Pressure 106/48 L 99/73 L 131/57 L Pulse Oximetry 98 100 100 Oxygen Delivery 04/07/22 20:00 04/07/22 20:00 04/07/22 22:00 Temperature 36.6 C Pulse Rate 78 85 82 Respiratory Rate 18 Blood Pressure 112/58 L Pulse Oximetry 99 Oxygen Delivery 04/07/22 23:28 04/08/22 00:00 04/07/22 20:00 Temperature 36.4 C Pulse Rate 77 70 Respiratory Rate 18 Blood Pressure 106/46 L Pulse Oximetry 97 Oxygen Delivery Room Air
[2022-04-08 13:20] LABS: Hemoglobin 7.6 g/dL (12.0-15.0)
[2022-04-08] MEDS: polyethylene glycoL 3350 238 GM BOTTLE PO (13:35)
[2022-04-08] MEDS: ALTEPLASE 2 MG VIAL (CATHFLO) IV PUSH (20:51)
[2022-04-08] MEDS: SODIUM CHLORIDE 0.9% IV 250 ML 30 ML (21:09)
--- NOTE | 2022-04-08 21:29 | PC.NURSE ---
KOFI Delgado called about second unit of blood, KOFI Delgado stated to administrate second unit. Started second unit at 2125.
--- NOTE | 2022-04-08 21:51 | PC.NURSE ---
tolerating blood well.
[2022-04-08] MEDS: CENTRAL LINE FLUSH 10 ML IV PUSH (22:04)
--- NOTE | 2022-04-08 23:24 | PC.NURSE ---
second unit completed will draw H&H at 100 am
[2022-04-09 01:50] LABS: Hematocrit 27.7 % (37.0-47.0); Hemoglobin 8.7 g/dL (12.0-15.0)
[2022-04-09] MEDS: SODIUM CHLORIDE 0.9% IV 1,000 ML 125 ML IV CONT ×3 (02:10→19:28)
--- NOTE | 2022-04-09 06:13 | PC.NURSE ---
reported to gi lab pt stool still dark brown. Not clear. Md Maldonado informed by GI lab this morning. Awaiting orders if more prep is needed.
[2022-04-09 06:20] VITALS: BP 107/45; PULSE 79; RESP 20; TEMP 36.2; O2SAT 100
[2022-04-09] MEDS: CENTRAL LINE FLUSH 10 ML IV PUSH ×3 (06:46→21:16)
[2022-04-09] MEDS: LACTATED RINGERS 1,000 ML 150 ML IV CONT ×2 (06:46→13:42)
[2022-04-09] MEDS: polyethylene glycoL 3350 238 GM BOTTLE 119 GM PO (08:25)
--- NOTE | 2022-04-09 08:30 | WPDANESEPPF ---
Anes - Initial Pre Proc Eval Procedure: Operation Date: 04/09/22 10:30 Proposed Procedures p Colonoscopy - Arnaldo Maldonado MD Date/Time: 04/09/22 08:30 Surgeon: Tai Dennis MD Pre Op Diagnosis: Lower GI Bleed Patient Data Age: 77 Gender: F Height: 1.63 m Weight: 85 kg Last Vital Signs Temp 36.2 C L 04/09/22 06:20 Pulse 79 04/09/22 06:20 Resp 20 04/09/22 06:20 BP 107/45 L 04/09/22 06:20 Pulse Ox 100 04/09/22 06:20 O2 Del Method Room Air 04/08/22 19:57 Allergies Allergy/AdvReac Type Severity Reaction Status Date / Time No Known Allergies Allergy Verified 02/05/22 12:22 Home Medications Medication Instructions Recorded Confirmed Type acetaminophen 650 mg 1,300 mg PO Q12H PRN Pain 10/21/21 04/07/22 History tablet,extended release aspirin 81 mg tablet,delayed 81 mg PO DAILY 10/21/21 04/07/22 History release (Adult Low Dose Aspirin) cholecalciferol (vitamin D3) 100 100 mcg PO DAILY 10/21/21 04/07/22 History mcg (4,000 unit) tablet cyanocobalamin (vitamin B-12) 2,500 mcg PO DAILY 10/21/21 04/07/22 History 2,500 mcg tablet apixaban 5 mg (74 tabs) tablets in See Rx Instructions PO .COMPLEX 04/04/22 04/07/22 Rx a dose pack (Eliquis DVT-PE Treat #74 ea 30D Start) hydrocodone 5 mg-acetaminophen 325 1 tablet PO Q4H PRN Moderate Pain 04/04/22 04/07/22 Rx mg tablet (4-6) #12 tabs Laboratory Tests 04/07/22 04/08/22 04/09/22 13:21 12:58 01:36 Hgb 7.6 g/dL L g/dL 8.7 g/dL L g/dL (12.0-15.0) (12.0-15.0) Hct 25.0 % L % 27.7 % L % (37.0-47.0) (37.0-47.0) Blood Type B Positive Antibody Screen Negative Crossmatch See Detail Results Review: All pre-operative results and documents have been reviewed as part of the pre-operative evaluation. [facility] Past Medical History Medical History (Updated 04/09/22 @ 08:31 by Luiz Carmona MD) Acute UTI CLL (chronic lymphocytic leukemia) Hypertension Metastatic colon cancer in female Pulmonary embolism on right Surgical History Surgical History History of tubal ligation Family History Family History Mother Hypertension Father Asthma Sibling Hypertension Heart disease Social History Social History (Updated 04/07/22 @ 16:01 by Roselia Barakat NP) Social History: The patient is and lives with her . She is retired. She is a current smoker. Her Madan is the durable power reel film inspector for healthcare. Code status full code Years smoked: 50 Smoking status: Current every day smoker Tobacco type: cigarettes Alcohol intake: never Substance use: never Substance use type: does not use Lack of Transportation: No Lack of Food: Never True Current Housing: I Have Housing Concerned About Future Housing: No Difficulty Paying Gas/Electric Bills: No Difficulty Paying for Meds: No Currently Unemployed: No Education: High School Diploma/GED Difficulty w/ Childcare or Family Care: No Additional living arrangements comments: [facility] Gender identity (if verbalized by the patient): Female Spiritual care concerns: No Anes - Eval Final PreProcedure Day of Procedure 04/09/22 08:30 Patient weight: obese Heart: regular rate and rhythm Lungs: clear to auscultation Airway: Mallampati scale class II Neurological: alert and oriented Last oral intake: >/= 8 hours ASA classification: III Emergent: no Anesthetic plan: proceed Anesthesia type and monitoring: general GIVS and standard monitoring Results Review: All pre-operative results and documents have been reviewed as part of the pre-operative evaluation. Informed Consent: The patient's anesthetic plan and its attendant risks and benefits were discussed with the patient/family/POA. Questions were solicited and
[2022-04-09] MEDS: CYANOCOBALAMIN 500 MCG TABLET 2500 MCG PO (10:16)
[2022-04-09] MEDS: CHOLECALCIFEROL 1,000 UNITS TABLET 4000 UNITS PO (10:16)
--- NOTE | 2022-04-09 12:33 | PM.IMPN ---
Progress Note: A&P Assessment and Plan (1) Acute lower GI bleeding: Code(s): K92.2 - Gastrointestinal hemorrhage, unspecified Status: Acute Assessment and Plan: - hold Eliquis and aspirin -GI has been consulted. plan for colonoscopy tomorrow. -patient has a history of primary Adenocarcinoma of the colon. -she is also in a hypercoagulable state with a history of PEs and DVTs. -continue with IV fluids -continue with clear liquids. (2) CLL (chronic lymphocytic leukemia): Code(s): C91.10 - Chronic lymphocytic leukemia of B-cell type not having achieved remission Status: Acute Assessment and Plan: -consult Hematology Oncology. (3) Hypertension: Code(s): I10 - Essential (primary) hypertension Status: Acute Assessment and Plan: -the patient was hypotensive earlier so we will hold her blood pressure medicine for now. (4) Pulmonary embolism on right: Code(s): I26.99 - Other pulmonary embolism without acute cor pulmonale Status: Acute Assessment and Plan: Eliquis is currently on hold due to GI bleed. once hemodynamically stable would recommend continuing Eliquis at 2.5 twice a day Subjective Date/time seen: 04/09/22 12:33 no new complaints Exam Const: General: cooperative, healthy appearing, comfortable, no acute distress, well developed, alert, awake, Physically active, ill appearing, tired appearing, average body habitus and overweight Nutritional Appearance: average body habitus and overweight Orientation/consciousness: oriented to person, oriented to place, oriented to time and patient oriented x3 Limitations: no limitations HENMT: Head: normal to inspection, No palpable skull fracture present, normocephalic and atraumatic Ears: hearing grossly normal bilaterally and external ears normal Face/Nose/Sinus: Normal external nose present and Normal nares present Eyes: General: appearance normal, both eyes and all related structures Alignment and Position: alignment normal Periorbital: periorbital findings normal Eyelids: eyelids normal Sclera: sclerae normal Pupils: Equal, round and reactive pupils present EOM: EOMs intact bilaterally Neck: Neck: normal visual inspection, full ROM, no lymphadenopathy, trachea midline and supple Chest: Chest palpation & inspection: normal inspection of the chest Resp: Effort & Inspection: normal respiratory effort Auscultation: clear to auscultation bilaterally Cardio: Palpation: normal PMI Rate: tachycardic Rhythm: regular rhythm Heart sounds: S1 normal heart sound present and S2 normal heart sound present Peripheral pulses: Peripheral pulses 2+ throughout GI: Inspection: normal to inspection Auscultation: normal bowel sounds Rectal Exam: deferred Back/Spine/Pelvis: Cervical Spine: cervical ROM normal Skin: General skin exam: no petechiae, no purpura and pallor Lesions: no lesions Rashes: no rashes Trauma: no lacerations or abrasions Wounds: no wounds Hair: normal Nails: normal Neuro: General: oriented to person, oriented to place, oriented to time and patient oriented x3 Cranial nerves: Yes Equal, round and reactive pupils present and Yes Normal hearing present Cognition (Neuro): normal cognition Speech: normal speech Motor exam (neuro): 5/5 motor strength present throughout Sensory Exam: normal sensation Extrem: General: normal to inspection Right upper extremity: normal to inspection and shoulder/upper arm Left upper extremity: normal to inspection and shoulder/upper arm Right lower extremity: normal to inspection Left lower extremity: normal to inspection Psych: Appearance: grossly normal Mental Status: mental status grossly normal Speech and movement: Normal speech and movement present Affect: normal affect Attitude: cooperative Thought process: Normal thought process present Insight: Good insight present (Psych) Judgement: Good judgement present (Psych) Objective Data Vital Sig
[2022-04-09 13:40] VITALS: BP 128/63; PULSE 85; RESP 16; TEMP 36.4; O2SAT 100
--- NOTE | 2022-04-09 14:01 | WPDANESEPPF ---
Anes - Initial Pre Proc Eval Procedure: Operation Date: 04/09/22 10:30 Proposed Procedures p Colonoscopy - Arnaldo Maldonado MD Date/Time: 04/09/22 14:01 Surgeon: Tai Dennis MD Pre Op Diagnosis: Lower GI Bleed Patient Data Age: 77 Gender: F Height: 1.63 m Weight: 85 kg Last Vital Signs Temp 36.4 C L 04/09/22 13:40 Pulse 85 04/09/22 13:40 Resp 16 04/09/22 13:40 BP 128/63 04/09/22 13:40 Pulse Ox 100 04/09/22 13:40 O2 Del Method Room Air 04/09/22 13:40 Allergies Allergy/AdvReac Type Severity Reaction Status Date / Time No Known Allergies Allergy Verified 04/09/22 13:37 Home Medications Medication Instructions Recorded Confirmed Type acetaminophen 650 mg 1,300 mg PO Q12H PRN Pain 10/21/21 04/07/22 History tablet,extended release aspirin 81 mg tablet,delayed 81 mg PO DAILY 10/21/21 04/07/22 History release (Adult Low Dose Aspirin) cholecalciferol (vitamin D3) 100 100 mcg PO DAILY 10/21/21 04/07/22 History mcg (4,000 unit) tablet cyanocobalamin (vitamin B-12) 2,500 mcg PO DAILY 10/21/21 04/07/22 History 2,500 mcg tablet apixaban 5 mg (74 tabs) tablets in See Rx Instructions PO .COMPLEX 04/04/22 04/07/22 Rx a dose pack (Eliquis DVT-PE Treat #74 ea 30D Start) hydrocodone 5 mg-acetaminophen 325 1 tablet PO Q4H PRN Moderate Pain 04/04/22 04/07/22 Rx mg tablet (4-6) #12 tabs Laboratory Tests 04/07/22 04/08/22 04/09/22 13:21 12:58 01:36 Hgb 7.6 g/dL L g/dL 8.7 g/dL L g/dL (12.0-15.0) (12.0-15.0) Hct 25.0 % L % 27.7 % L % (37.0-47.0) (37.0-47.0) Blood Type B Positive Antibody Screen Negative Crossmatch See Detail Patient hx anesthesia problems: none Family hx anesthesia problems: none Results Review: All pre-operative results and documents have been reviewed as part of the pre-operative evaluation. [facility] Past Medical History Medical History Acute UTI CLL (chronic lymphocytic leukemia) Hypertension Metastatic colon cancer in female Pulmonary embolism on right Surgical History Surgical History History of tubal ligation Family History Family History Mother Hypertension Father Asthma Sibling Hypertension Heart disease Social History Social History Social History: The patient is and lives with her . She is retired. She is a current smoker. Her Madan is the durable power associate attorney for healthcare. Code status full code Years smoked: 50 Smoking status: Current every day smoker Tobacco type: cigarettes Alcohol intake: never Substance use: never Substance use type: does not use Lack of Transportation: No Lack of Food: Never True Current Housing: I Have Housing Concerned About Future Housing: No Difficulty Paying Gas/Electric Bills: No Difficulty Paying for Meds: No Currently Unemployed: No Education: High School Diploma/GED Difficulty w/ Childcare or Family Care: No Additional living arrangements comments: [place] Gender identity (if verbalized by the patient): Female Spiritual care concerns: No Anes - Eval Final PreProcedure Day of Procedure 04/09/22 14:01 Patient weight: obese Lungs: decreased breath sounds Neurological: alert and oriented Last oral intake: >/= 8 hours ASA classification: IV Emergent: no Anesthetic plan: proceed Anesthesia type and monitoring: general GIVS and standard monitoring Results Review: All pre-operative results and documents have been reviewed as part of the pre-operative evaluation. Informed Consent: The patient's anesthetic plan and its attendant risks and benefits were discussed with the patient/family/POAGerardo Herrera
[2022-04-09 14:46] VITALS: BP 105/66; PULSE 74; RESP 23; O2SAT 97
[2022-04-09 14:56] VITALS: BP 120/64; PULSE 71; RESP 26; O2SAT 98
[2022-04-09 15:06] VITALS: BP 124/69; PULSE 73; RESP 24; O2SAT 100
[2022-04-09 22:30] VITALS: BP 128/57; PULSE 82; RESP 18; TEMP 36.8; O2SAT 100
[2022-04-10 00:30] VITALS: BP 130/61; PULSE 88; RESP 18; TEMP 36.8; O2SAT 96
[2022-04-10] MEDS: SODIUM CHLORIDE 0.9% IV 1,000 ML 125 ML IV CONT (03:30)
[2022-04-10 04:00] VITALS: BP 137/61; PULSE 72; RESP 16; TEMP 36.9; O2SAT 98
[2022-04-10] MEDS: CENTRAL LINE FLUSH 10 ML IV PUSH (06:55)
[2022-04-10 07:21] LABS: Basophils Percent Auto 0.5 % (0.2-1.2); Eosinophils Absolute Auto 0.5 K/mm3 (0-0.3); Eosinophils Percent Auto 6.8 % (0-4.4); Hematocrit 27.1 % (37.0-47.0); Hemoglobin 8.7 g/dL (12.0-15.0); Immature Granulocyte Absolute 0.03 K/mm3 (0.00-0.031); Immature Granulocyte Percent A 0.5 % (0-0.5); Lymphocytes Absolute Auto 0.74 K/mm3 (0.9-3.2); Lymphocytes Percent Auto 11.1 % (18.3-44.2); Mean Corpuscular HGB Conc 32.1 g/dl (32-36); Mean Corpuscular Hemoglobin 31.9 pg (26-34); Mean Corpuscular Volume 99.3 fl (80-100); Mean Platelet Volume 9.1 fl (7.4-10.4); Monocytes Absolute Auto 0.6 K/mm3 (0.1-0.6); Monocytes Percent Auto 9.5 % (2.6-8.5); Neutrophils Absolute Auto 4.8 K/mm3 (1.3-6.7); Neutrophils Percent Auto 71.6 % (45.5-73.1); Platelet Count Result 387 k/mm3 (150-375); Red Blood Count 2.73 M/mm3 (4.2-5.4); Red Cell Distribution Width 15.9 % (11.5-14.5); White Blood Count 6.7 K/mm3 (4.5-10.0)
[2022-04-10 07:37] LABS: Anion Gap 3 mmol/L (8-16); Blood Urea Nitrogen 5 mg/dL (7-17); Calcium 7.6 mg/dL (8.4-10.2); Carbon Dioxide 21 mmol/L (22-30); Chloride 112 mmol/L (98-107); Estimated CRCL calculation 56 ml/min; Estimated Glomerular Filt Rate > 60; Glucose 87 mg/dL (65-110); Potassium 3.2 mmol/L (3.4-5.0); Sodium 136 mmol/L (137-145)
[2022-04-10 07:58] VITALS: BP 125/58; PULSE 71; RESP 18; TEMP 36.8; O2SAT 99
[2022-04-10] MEDS: APIXABAN 2.5 MG TABLET PO (09:31)
[2022-04-10] MEDS: CYANOCOBALAMIN 500 MCG TABLET 2500 MCG PO (09:32)
[2022-04-10] MEDS: CHOLECALCIFEROL 1,000 UNITS TABLET 4000 UNITS PO (09:34)
--- NOTE | 2022-04-10 09:52 | PCNFU ---
Nutrition Follow-Up Complete: Unintentional weight loss related to reduced appetite and intake as evidenced by pt report and noted significant weight loss. Goal:Diet advanced. PO intake 50% or greater for meals and supplements. Pt is meeting goal, continue with current goal. Pt current nutrition is Heart healthy, Ensure Enlive BID. Nutrition recommendation: Continue with current plan of care. Last recorded weight is 86.8 kg - stable at this time. Bowel Motility: + BM 04/10 Labs Reviewed: Hgb:8.7, HCT:27.1, NA:136, K:3.2, BUN:5 Meds Noted: Eliquis, zorafaela, vit D Skin: WNL Additional Notes: Pt diet advanced to heart healthy, intake 50-100%. Ensure Enlive BID in place per recommendations. Agree with diet orders. Continue with current plan of care. Monitor diet order, tolerance, intake, wt, labs. Follow up in 7 days.
--- NOTE | 2022-04-10 11:32 | PM.DS ---
DS: Admitting Diagnosis Discharge Date April 10, 2022 Admitting Diagnosis GI bleed and anemia DS: Discharge Diagnosis Discharge Diagnosis (1) Acute lower GI bleeding: Code(s): K92.2 - Gastrointestinal hemorrhage, unspecified Status: Acute Assessment and Plan: - hold Eliquis and aspirin -GI has been consulted. plan for colonoscopy tomorrow. -patient has a history of primary Adenocarcinoma of the colon. -she is also in a hypercoagulable state with a history of PEs and DVTs. -continue with IV fluids -continue with clear liquids. (2) CLL (chronic lymphocytic leukemia): Code(s): C91.10 - Chronic lymphocytic leukemia of B-cell type not having achieved remission Status: Acute Assessment and Plan: -consult Hematology Oncology. (3) Hypertension: Code(s): I10 - Essential (primary) hypertension Status: Acute Assessment and Plan: -the patient was hypotensive earlier so we will hold her blood pressure medicine for now. (4) Pulmonary embolism on right: Code(s): I26.99 - Other pulmonary embolism without acute cor pulmonale Status: Acute Assessment and Plan: Eliquis is currently on hold due to GI bleed. once hemodynamically stable would recommend continuing Eliquis at 2.5 twice a day DS: Summary Hospital Course Hospital Course: patient was admitted for GI bleed anemia. GI evaluated the patient and Descovy and she likely blood from this known cecal mass.She will need follow-up with GI regarding this. we did stop her anticoagulation while she was in the hospital. Anticoagulation will be continued at a lower dose for her DVT PE. Follow-up with Hematology-Oncology as well. Time Spent with Patient Time attestation: Total time spent providing and/or coordinating discharge services: Exam Const: General: cooperative, healthy appearing, comfortable, no acute distress, well developed, alert, awake, Physically active, ill appearing, tired appearing, average body habitus and overweight Nutritional Appearance: average body habitus and overweight Orientation/consciousness: oriented to person, oriented to place, oriented to time and patient oriented x3 Limitations: no limitations HENMT: Head: normal to inspection, No palpable skull fracture present, normocephalic and atraumatic Ears: hearing grossly normal bilaterally and external ears normal Face/Nose/Sinus: Normal external nose present and Normal nares present Eyes: General: appearance normal, both eyes and all related structures Alignment and Position: alignment normal Periorbital: periorbital findings normal Eyelids: eyelids normal Sclera: sclerae normal Pupils: Equal, round and reactive pupils present EOM: EOMs intact bilaterally Neck: Neck: normal visual inspection, full ROM, no lymphadenopathy, trachea midline and supple Chest: Chest palpation & inspection: normal inspection of the chest Resp: Effort & Inspection: normal respiratory effort Auscultation: clear to auscultation bilaterally Cardio: Palpation: normal PMI Rate: tachycardic Rhythm: regular rhythm Heart sounds: S1 normal heart sound present and S2 normal heart sound present Peripheral pulses: Peripheral pulses 2+ throughout GI: Inspection: normal to inspection Auscultation: normal bowel sounds Rectal Exam: deferred Back/Spine/Pelvis: Cervical Spine: cervical ROM normal Skin: General skin exam: no petechiae, no purpura and pallor Lesions: no lesions Rashes: no rashes Trauma: no lacerations or abrasions Wounds: no wounds Hair: normal Nails: normal Neuro: General: oriented to person, oriented to place, oriented to time and patient oriented x3 Cranial nerves: Yes Equal, round and reactive pupils present and Yes Normal hearing present Cognition (Neuro): normal cognition Speech: normal speech Motor exam (neuro): 5/5 motor strength present throughout Sensory Exam: normal sensation Extrem: General: normal to inspection Right
[2022-04-10] MEDS: HEPARIN SODIUM LOCK FLUSH 500 UNITS/5 ML SYRINGE IV PUSH (14:06)
== END 2022-04-10 15:25 | disposition home or self-care (01) | DRG 374 ==
LOC: ANHED 12:53 → ANHIMU 15:33 → ANH3MEDSUR 04-08 16:23
PROVIDERS: Internal Medicine Gastroenterology; Physician Assistant; Admitting Provider Family Medicine; Emergency Provider Family Medicine; PCP Family Medicine; Visit Provider Chiropractor
PROC: 0DJD8ZZ Inspection of Lower Intestinal Tract, Via Natural or Artificial Opening Endoscopic (ICD-10-PCS; CPT 45378; principal; 2022-04-09 10:30)
DX: C18.0 Malignant neoplasm of cecum (principal); I26.99 Other pulmonary embolism without acute cor pulmonale; K57.31 Diverticulosis of large intestine without perforation or abscess with bleeding; C91.10 Chronic lymphocytic leukemia of B-cell type not having achieved remission; C78.7 Secondary malignant neoplasm of liver and intrahepatic bile duct; C18.2 Malignant neoplasm of ascending colon; I82.403 Acute embolism and thrombosis of unspecified deep veins of lower extremity, bilateral; Z79.01 Long term (current) use of anticoagulants; I10 Essential (primary) hypertension; F17.210 Nicotine dependence, cigarettes, uncomplicated; Z82.49 Family history of ischemic heart disease and other diseases of the circulatory system; Z20.822 Contact with and (suspected) exposure to COVID-19; Z92.21 Personal history of antineoplastic chemotherapy; Z79.82 Long term (current) use of aspirin; Z79.899 Other long term (current) drug therapy
CPT/HCPCS: 36415; 36430; 74177; 80048; 80053; 85014; 85018; 85025; 85610; 86850; 86900; 86901; 86923; 96360; 96361; 99285; A9270; C1052; G0378; J2704; J2997; J7030; J7050; J7120; P9016; Q9967; U0003; U0005

== ENCOUNTER 2022-06-09 09:29 | Observation (INO) | payer MEDICARE, MEDICAID, SELFPAY ==
[2022-06-09] VITALS (12 sets, daily range): BP systolic 82–122; BP diastolic 47–72; PULSE 83–124; RESP 14–20; TEMP 36.5–36.8; O2SAT 95–100; BMI 24.1
--- NOTE | ~2022-06-09 | CT_ITS ---
EXAMINATION: CTA chest PE protocol DATE: 06/09/2022 11:21 INDICATION: Shortness of breath, history of CLL and metastatic colon cancer TECHNIQUE: Computed tomography angiography (CTA) of the chest was performed with 100 mL Omnipaque-350 intravenous contrast timed to evaluate the pulmonary arteries. Coronal maximum intensity projection 3D-reconstructions were created by the technologist. The dose-length product (DLP) was 282.88 mGy-cm. Automated exposure control and iterative reconstruction technique were employed. COMPARISON: 03/30/2022 FINDINGS: The pulmonary arteries are well-opacified. There is a chronic embolus in the distal right m ain pulmonary artery with interval decrease in size. No acute pulmonary embolus is identified. No ple ural effusion or pneumothorax. Dependent atelectasis is noted. No pathologically enlarged thoracic ly mph nodes are identified. The heart size is normal. A right internal jugular Port-A-Cath ends with it s tip in the distal superior vena cava. There is mild thoracic spondylosis. There are multiple metast ases of the partially imaged liver which demonstrate increase in size. For instance a 3.4 cm mass in liver segment previously measured 3 cm. IMPRESSION: 1. Chronic pulmonary embolus in the distal right main pulmonary artery with decrease in size. No acut e pulmonary emboli identified. 2. Worsening metastatic disease of the liver. Reviewed, dictated and finalized at location B. EN BOAT BUILDER IMPRESSION: 1. Chronic pulmonary embolus in the distal right main pulmonary artery with dec rease in size. No acute pulmonary emboli identified. 2. Worsening metastatic disease of the liver.
--- NOTE | ~2022-06-09 | XR_ITS ---
EXAMINATION: XR chest 1V portable DATE: 06/09/2022 10:00 INDICATION: Dyspnea. TECHNIQUE: A single frontal view of the chest was obtained. COMPARISON: Chest 2 views 03/07/2022, CT abdomen and pelvis 04/07/2022, chest CT 03/30/2022 FINDINGS: The chest demonstrates clear lungs without pneumonia, pleural effusion, or pneumothorax. Th e heart size is normal. There is a right internal jugular port with tip in superior vena cava. IMPRESSION: 1. No acute cardiopulmonary disease. Reviewed, dictated and finalized at location A. D BANK CUSTODIAN
--- NOTE | 2022-06-09 09:36 | ECG_ITS ---
Measurements Intervals [place] Rate: 123 P: IA: 0 QRS: -61 QRSD: 90 T: 73 QT: 290 QTc: 416 Interpretive Statements SINUS TACHYCARDIA ATRIAL PREMATURE COMPLEXES INCOMPLETE RIGHT BUNDLE BRANCH BLOCK LEFT ANTERIOR FASCICULAR BLOCK ABNORMAL ECG COMPARED TO ECG 03/30/2022 20:34:38 HEART RATE HAS INCREASED Electronically Signed On 06-09-2022 12:00:00 TIRE BUILDER OPERATOR by Brown Padilla D.O.
--- NOTE | 2022-06-09 09:49 | ED.RECABL ---
HPI - Recheck/Abnormal Lab/Rx General Chief Complaint: Recheck/Abnormal Lab/Rx <Malka Camilo PA-C - Last Filed: 06/09/22 13:37> Stated Complaint: low bp, high hr <Malka Camilo PA-C - Last Filed: 06/09/22 13:37> Time Seen by Provider: 06/09/22 09:33 <Malka Camilo PA-C - Last Filed: 06/09/22 13:37> History of Present Illness HPI narrative: Patient is a 77-year-old female with history of CLL on chemotherapy, follows with Dr. Mcmanus, sent here from oncology office this morning for evaluation of low blood pressure and fast heart rate. According to patient her BP was 70s over 40s this morning and her heart rate was over 100, which is abnormal for her. Patient states that she feels fatigued and somewhat short of breath this morning since about 8:00. She was in her usual state of health yesterday. She denies any chest pain, cough, leg swelling, nausea, vomiting, fevers or chills. No sick contacts. <BLANCHE Chilel Last Filed: 06/09/22 13:37> Related Data Home Medications: Home Medications Medication Instructions Recorded Confirmed cholecalciferol (vitamin D3) 100 100 mcg PO DAILY 10/21/21 06/09/22 mcg (4,000 unit) tablet cyanocobalamin (vitamin B-12) 2,500 mcg PO DAILY 10/21/21 06/09/22 2,500 mcg tablet ferrous sulfate 325 mg (65 mg 325 mg PO BID 04/28/22 06/09/22 iron) capsule,extended release potassium chloride 10 mEq 10 meq PO BID 04/29/22 06/09/22 capsule,extended release <BLANCHE Chilel Last Filed: 06/09/22 13:37> Allergies/Adverse Reactions: Allergies Allergy/AdvReac Type Severity Reaction Status Date / Time No Known Allergies Allergy Verified 06/02/22 09:02 <BLANCHE Chilel Last Filed: 06/09/22 13:37> Review of Systems Review of Systems: Gen.: Reports fatigue. Denies fevers or chills Eyes: Denies eye pain or visual change ENT: Denies congestion Respiratory: Reports dyspnea CV: Denies chest pain or palpitations GI: Denies abdominal pain nausea, emesis or diarrhea denies burning, urgency, frequency or hematuria Musculoskeletal: Denies back pain or muscle pain Neuro: Denies numbness, tingling, weakness or focal weakness Skin: Denies rash Except as documented, all other systems reviewed and negative <Malka Camilo PA-C - Last Filed: 06/09/22 13:37> [facility] Past Medical History Medical History: Medical History Acute UTI CLL (chronic lymphocytic leukemia) Debility Hypertension Metastatic colon cancer in female Osteoarthritis Pulmonary embolism on right Vitamin B12 deficiency Vitamin D deficiency <Malka Camilo PA-C - Last Filed: 06/09/22 13:37> Surgical History Surgical History: Surgical History History of tubal ligation <Malka Camilo PA-C - Last Filed: 06/09/22 13:37> Family History Family History: Family History ) Mother Hypertension Father Asthma Sibling Hypertension Heart disease <Malka Camilo PA-C - Last Filed: 06/09/22 13:37> Social History Social History: Social History ) Social History: The patient is and lives with her . She is retired. She is a current smoker. Her Madan is the durable power tax attorney for healthcare. Code status full code Years smoked: 50 Smoking status: Current every day smoker Tobacco type: cigarettes Alcohol intake: never Substance use: never Substance use type: does not use Lack of Transportation: No Lack of Food: Never True Current Housing: I Have Housing Concerned About Future Housing: No Difficulty Paying Gas/Electric Bills: No Difficulty Paying for Meds: No Currently Unemploy
[2022-06-09 10:13] LABS: Basophils Absolute Auto 0.1 K/mm3 (0.0-0.1); Basophils Percent Auto 0.6 % (0.2-1.2); Eosinophils Percent Auto 0.1 % (0-4.4); Hematocrit 31.2 % (37.0-47.0); Hemoglobin 9.7 g/dL (12.0-15.0); Immature Granulocyte Absolute 0.42 K/mm3 (0.00-0.031); Immature Granulocyte Percent A 4.4 % (0-0.5); Lymphocytes Absolute Auto 0.72 K/mm3 (0.9-3.2); Lymphocytes Percent Auto 7.6 % (18.3-44.2); Mean Corpuscular HGB Conc 31.1 g/dl (32-36); Mean Corpuscular Volume 96.6 fl (80-100); Mean Platelet Volume 8.9 fl (7.4-10.4); Monocytes Absolute Auto 1.1 K/mm3 (0.1-0.6); Neutrophils Absolute Auto 7.3 K/mm3 (1.3-6.7); Neutrophils Percent Auto 76.3 % (45.5-73.1); Platelet Count Result 345 k/mm3 (150-375); Red Blood Count 3.23 M/mm3 (4.2-5.4); Red Cell Distribution Width 17.2 % (11.5-14.5); White Blood Count 9.5 K/mm3 (4.5-10.0)
[2022-06-09 10:18] LABS: Appearance Urine Clear (Clear); Bilirubin Urine Negative (Negative); Blood Urine Negative (Negative); Color Urine Yellow (Yellow); Glucose Urine UA Negative (Negative); Ketones Urine Negative (Negative); Leukocyte Esterase Ur Negative LEU/UL (Negative); Nitrate Urine Negative (Negative); Protein Urine Negative (Negative); Specific Grav Ur 1.015 (1.001-1.035); Urobilinogen Urine 0.2 mg/dL (<2.0)
[2022-06-09 10:19] LABS: Add Urine Microscopic? NO
[2022-06-09 10:24] LABS: INR 1.3
[2022-06-09 10:25] LABS: Lactic Acid Reflex 1.9 mmol/L (0.7-2.0); Partial Thromboplastin Time 31.1 SECONDS (22.3-36.8)
[2022-06-09 10:26] LABS: Alanine Aminotransferase 17 U/L (6-35); Albumin Level 3.4 g/dL (3.5-5.1); Alkaline Phosphatase 101 U/L (38-126); Anion Gap 6 mmol/L (8-16); Aspartate Amino Transferase 32 U/L (14-36); Bilirubin,Total 0.5 mg/dL (0.2-1.3); Blood Urea Nitrogen 11 mg/dL (7-17); Calcium 9.3 mg/dL (8.4-10.2); Carbon Dioxide 25 mmol/L (22-30); Chloride 100 mmol/L (98-107); Estimated CRCL calculation 42 ml/min; Estimated Glomerular Filt Rate 54; Glucose 107 mg/dL (65-110); Potassium 4.1 mmol/L (3.4-5.0); Sodium 131 mmol/L (137-145)
[2022-06-09 10:37] LABS: Troponin I < 0.012 ng/mL (0.000-0.034)
[2022-06-09 10:38] LABS: Influenza A QL RT-PCR Negative (Negative); Influenza B QL RT-PCR Negative (Negative); SARS-CoV-2 RNA PCR Negative
[2022-06-09] MEDS: SODIUM CHLORIDE 0.9% IV 1,000 ML 999 ML IV CONT ×2 (10:51→13:40)
--- NOTE | 2022-06-09 17:00 | PM.IMHP ---
H&P: HPI History of Present Illness Date/Time: 06/09/22 17:00 Chief Complaint: Low blood pressure and high heart rate. Narrative: This is a very pleasant 77-year-old female with history of pulmonary embolism on anticoagulation, hypertension, chronic lymphocytic leukemia, and metastatic colon cancer to the liver currently undergoing chemotherapy who presented to the ED from Dr. Mcmanus's office for evaluation of low blood pressure and high heart rate. Patient provides the following history. She was scheduled to have a chemotherapy infusion today and when she got up this morning she noticed that she was feeling a bit weak, fatigued, and more short of breath with exertion than usual. Upon presenting to Dr. Mcmanus's office she was found to have a blood pressure in the 70s over 40s with a heart rate well over 100 and she was directed to the ER. She had positive orthostatic vital signs and her blood pressures have improved with IV fluid rehydration though she continues to have a significant increase in her heart rate when standing. She is being admitted for further hydration and observation. With further questioning she does admit that she has difficulties drinking enough fluid each day and she ends to have 70 oz of water a day. Her appetite has been fair and she has not had any nausea or vomiting. She has not had any recent change in medications and she has been off of her antihypertensive since March. She denies fever, chills, and sweats. No recent cold or flu symptoms. No chest pain, pleuritic pain, or significant palpitations. She denies syncope and near-syncope. Review of Systems Review of Systems: Twelve systems were reviewed and are negative except for as per HPI. [facility], [facility] Past Medical History Medical History Bilateral deep vein thromboses (03/2022) Chronic anemia Chronic lymphocytic leukemia Hypertension Metastatic colon cancer to liver Osteoarthritis Pulmonary embolism on right (03/2022) Vitamin B12 deficiency Vitamin D deficiency Surgical History Surgical History (Updated 06/09/22 @ 14:13 by Era Delgado PA-C) History of cataract extraction with lens replacement History of liver biopsy Pathology showed carcinoma, compatible with colon primary. History of tonsillectomy History of tubal ligation Family History Family History Mother Hypertension Father Asthma Sibling Hypertension Heart disease Social History Social History Social History: Surrogate medical decision maker: Madan Valdivia, spouse. Code status: Full code. Smoking packs per day: 1 Smoking cigarettes per day: 20.0 Years smoked: 45 Smoking pack-years: 45.00 Smoking status: Former smoker Tobacco type: cigarettes Alcohol intake: never Substance use: never Substance use type: does not use Lack of Transportation: No Lack of Food: Never True Current Housing: I Have Housing Concerned About Future Housing: No Difficulty Paying Gas/Electric Bills: No Difficulty Paying for Meds: No Currently Unemployed: No Education: High School Diploma/GED Difficulty w/ Childcare or Family Care: No Living arrangements: with family Additional living arrangements comments: Lives in [place] with spouse. Occupation/Education: retired Spiritual care concerns: No Meds Home Medications and Allergies Home Medications Medication Instructions Recorded Confirmed Type cholecalciferol (vitamin D3) 100 100 mcg PO DAILY 10/21/21 06/09/22 History mcg (4,000 unit) tablet cyanocobalamin (vitamin B-12) 2,500 mcg PO DAILY 10/21/21 06/09/22 History 2,500 mcg tablet ferrous sulfate 325 mg (65 mg 325 mg PO BID 04/28/22 06/09/22 History iron) capsule,extended release potassium chloride 10 mEq 10 meq PO BID 04/29/22 06/09/22 History
[2022-06-09] MEDS: CENTRAL LINE FLUSH 10 ML IV PUSH (22:10)
[2022-06-09] MEDS: APIXABAN 2.5 MG TABLET PO (22:10)
[2022-06-09 22:11] LABS: Anion Gap 2 mmol/L (8-16); Blood Urea Nitrogen 12 mg/dL (7-17); Calcium 8.1 mg/dL (8.4-10.2); Carbon Dioxide 26 mmol/L (22-30); Chloride 107 mmol/L (98-107); Estimated CRCL calculation 34 ml/min; Estimated Glomerular Filt Rate 48; Glucose 102 mg/dL (65-110); Potassium 3.8 mmol/L (3.4-5.0); Sodium 135 mmol/L (137-145)
[2022-06-09 22:17] LABS: Sodium Urine Random 92 meq/L
[2022-06-10] VITALS (7 sets, daily range): BP systolic 102–118; BP diastolic 45–52; PULSE 73–92; RESP 14–22; TEMP 36.3–36.9; O2SAT 95–100; BMI 24.0
[2022-06-10] MEDS: SODIUM CHLORIDE 0.9% IV 1,000 ML 75 ML IV CONT (02:00)
[2022-06-10 02:55] LABS: Creatinine Urine 44.8 mg/dL
[2022-06-10 06:36] LABS: Hematocrit 26.8 % (37.0-47.0); Hemoglobin 8.2 g/dL (12.0-15.0); Mean Corpuscular HGB Conc 30.6 g/dl (32-36); Mean Corpuscular Hemoglobin 30.1 pg (26-34); Mean Corpuscular Volume 98.5 fl (80-100); Mean Platelet Volume 8.9 fl (7.4-10.4); Platelet Count Result 281 k/mm3 (150-375); Red Blood Count 2.72 M/mm3 (4.2-5.4); Red Cell Distribution Width 17.3 % (11.5-14.5); White Blood Count 6.2 K/mm3 (4.5-10.0)
[2022-06-10 06:56] LABS: Chloride 105 mmol/L (98-107)
[2022-06-10 07:00] LABS: Anion Gap 3 mmol/L (8-16); Blood Urea Nitrogen 10 mg/dL (7-17); Calcium 8.2 mg/dL (8.4-10.2); Carbon Dioxide 26 mmol/L (22-30); Estimated CRCL calculation 41 ml/min; Estimated Glomerular Filt Rate > 60; Glucose 91 mg/dL (65-110); Magnesium 2.2 mg/dL (1.6-2.3); Potassium 3.7 mmol/L (3.4-5.0); Sodium 134 mmol/L (137-145)
[2022-06-10] MEDS: CHOLECALCIFEROL 1,000 UNITS TABLET 4000 UNITS PO (09:00)
[2022-06-10] MEDS: CYANOCOBALAMIN 1,000 MCG TABLET 2000 MCG PO (09:00)
[2022-06-10] MEDS: POTASSIUM CHLORIDE 10 MEQ TABLET.ER PO (09:01)
[2022-06-10] MEDS: APIXABAN 2.5 MG TABLET PO (09:01)
[2022-06-10] MEDS: CYANOCOBALAMIN 500 MCG TABLET PO (09:01)
--- NOTE | 2022-06-10 09:37 | PM.DS ---
DS: Admitting Diagnosis Discharge Date 06/10/22 Admitting Diagnosis dehydration DS: Discharge Diagnosis Discharge Diagnosis (1) Orthostatic hypotension: Code(s): I95.1 - Orthostatic hypotension Status: Acute (2) Sinus tachycardia: Code(s): R00.0 - Tachycardia, unspecified Status: Acute (3) Chronic pulmonary embolism: Code(s): I27.82 - Chronic pulmonary embolism Status: Acute (4) Chronic anemia: Code(s): D64.9 - Anemia, unspecified Status: Acute (5) Hyponatremia: Code(s): E87.1 - Hypo-osmolality and hyponatremia Status: Acute (6) Metastatic cancer to liver: Code(s): C78.7 - Secondary malignant neoplasm of liver and intrahepatic bile duct Status: Acute DS: Summary Hospital Course Hospital Course: 77-year-old female with history of pulmonary embolism on anticoagulation, hypertension, chronic lymphocytic leukemia, and metastatic colon cancer to the liver currently undergoing chemotherapy who presented to the ED from Dr. Mcmanus's office for evaluation of low blood pressure and high heart rate. Patient provides the following history. She was scheduled to have a chemotherapy infusion today and when she got up this morning she noticed that she was feeling a bit weak, fatigued, and more short of breath with exertion than usual. Upon presenting to Dr. Mcmanus's office she was found to have a blood pressure in the 70s over 40s with a heart rate well over 100 and she was directed to the ER. She had positive orthostatic vital signs and her blood pressures have improved with IV fluid rehydration though she continues to have a significant increase in her heart rate when standing. She is being admitted for further hydration and observation. With further questioning she does admit that she has difficulties drinking enough fluid each day and she ends to have 70 oz of water a day. Her appetite has been fair and she has not had any nausea or vomiting. She has not had any recent change in medications and she has been off of her antihypertensive since March. She denies fever, chills, and sweats.? No recent cold or flu symptoms.? No chest pain, pleuritic pain, or significant palpitations. She denies syncope and near-syncope. Patient's symptoms completely resolved after IV fluid resuscitation. Orthostatic vital signs resolved. Extensive discussion had regarding oral intake, sodium intake, compression stockings and eventually midodrine if needed. She may have a component of autonomic dysfunction secondary to the chemotherapy she is on as well for colon cancer. Will defer further care to outpatient management. Patient discharged in stable condition with close outpatient follow-up. Time Spent with Patient Time attestation: Total time spent providing and/or coordinating discharge services: DS: Data Data Completed and Pending Labs on day of discharge: Labs from last 24 hours 06/10/22 06/10/22 06/09/22 06:17 06:17 21:59 WBC 6.2 RBC 2.72 L Hgb 8.2 L Hct 26.8 L MCV 98.5 MCH 30.1 MCHC 30.6 L RDW 17.3 H Plt Count 281 MPV 8.9 Immature Gran % (Auto) Neut % (Auto) Lymph % (Auto) [place] % (Auto) Eos % (Auto) Baso % (Auto) Lymph # (Auto) [place] # (Auto) Eos # (Auto) Baso # (Auto) Abs Immat Gran (auto) Absolute Neuts (auto) Absolute Nucleated RBC Nucleated RBC % PT INR APTT Sodium 134 L Potassium 3.7 Chloride 105 Carbon Dioxide 26 Anion Gap 3 L BUN 10 Creatinine 0.90 Estim Creat Clear Calc 41 Estimated GFR > 60 Glucose 91 Serum Osmolality Lactic Acid Calcium 8.2 L Magnesium 2.2 Total Bilirubin AST ALT Alkaline Phosphatase Troponin I Total Protein Albumin TSH (Reflex) Urine Color Urine Appearance Urine pH Ur Specific [place] Urine Protein Urine Glucose (UA) Urine Ketones Ur Blood (Man) Uri
[2022-06-10] MEDS: HEPARIN SODIUM LOCK FLUSH 500 UNITS/5 ML SYRINGE IV PUSH (16:21)
[2022-06-12 19:39] LABS: Osmolality, Urine 321 mOsm/kg (50-1200)
== END 2022-06-10 17:05 | disposition home or self-care (01) ==
LOC: ANHED 12:45 → ANH3MEDSUR 18:25
PROVIDERS: Physician Assistant; Admitting Provider Internal Medicine; Emergency Provider Emergency Medicine; PCP Family Medicine; Visit Provider Student in an Organized Health Care Education/Training Program
DX: I95.1 Orthostatic hypotension (principal); R00.0 Tachycardia, unspecified; I27.82 Chronic pulmonary embolism; D64.9 Anemia, unspecified; E87.1 Hypo-osmolality and hyponatremia; C78.7 Secondary malignant neoplasm of liver and intrahepatic bile duct; C91.10 Chronic lymphocytic leukemia of B-cell type not having achieved remission; C18.9 Malignant neoplasm of colon, unspecified; I10 Essential (primary) hypertension; R06.02 Shortness of breath; Z20.822 Contact with and (suspected) exposure to COVID-19; R53.83 Other fatigue; M19.90 Unspecified osteoarthritis, unspecified site; E53.8 Deficiency of other specified B group vitamins; E55.9 Vitamin D deficiency, unspecified; I45.2 Bifascicular block; R94.31 Abnormal electrocardiogram [ECG] [EKG]; F17.210 Nicotine dependence, cigarettes, uncomplicated; Z86.711 Personal history of pulmonary embolism; Z85.038 Personal history of other malignant neoplasm of large intestine; Z79.630 Long term (current) use of alkylating agent; Z79.01 Long term (current) use of anticoagulants; Z87.891 Personal history of nicotine dependence; Z79.899 Other long term (current) drug therapy
CPT/HCPCS: 36415; 36592; 71045; 71275; 80047; 80048; 80053; 81003; 82570; 83605; 83735; 83930; 83935; 84300; 84443; 84484; 85025; 85027; 85610; 85730; 87040; 87636; 93005; 99285; A9270; G0378; J7030; Q9967

== ENCOUNTER 2022-07-23 14:06 | Inpatient (IN) | payer MEDICARE, MEDICAID, SELFPAY ==
[2022-07-23] VITALS (13 sets, daily range): BP systolic 91–114; BP diastolic 41–68; PULSE 59–129; RESP 16–20; TEMP 36.6–38.1; O2SAT 100
--- NOTE | ~2022-07-23 | XR_ITS ---
EXAMINATION: XR chest 2V DATE: 07/23/2022 15:21 INDICATION: Palpitations TECHNIQUE: PA and lateral views of the chest were obtained. COMPARISON: Chest radiograph dated 06/09/2022 FINDINGS: Right internal jugular central venous port catheter with distal tip in the mid superior vena cava. Th e lungs remain clear with no focal airspace opacities, pulmonary edema, pleural effusion or pneumotho rax. The cardiomediastinal silhouette is normal. Mild lower thoracic levocurvature with mild to moder ate thoracic spondylosis. IMPRESSION: 1. No acute cardiopulmonary disease. Reviewed, dictated and finalized at location B.
--- NOTE | 2022-07-23 14:08 | ECG_ITS ---
Measurements Intervals [place] Rate: 131 P: 70 KS: 155 QRS: -58 QRSD: 85 T: 76 QT: 298 QTc: 440 Interpretive Statements SINUS TACHYCARDIA ATRIAL AND VENTRICULAR PREMATURE COMPLEXES INCOMPLETE RIGHT BUNDLE BRANCH BLOCK LEFT ANTERIOR FASCICULAR BLOCK LOW QRS VOLTAGE IN PRECORDIAL LEADS BORDERLINE ST-T WAVE ABNORMALITY- HIGH LATERAL LEADS BASELINE ARTIFACT- I, II, III, AVR, AVL ABNORMAL ECG COMPARED TO ECG 06/09/2022 09:40:40 NO SIGNIFICANT CHANGES Electronically Signed On 07-23-2022 14:44:25 CDT by Brown Padilla D.O.
--- NOTE | 2022-07-23 14:52 | ED.ARRPALP ---
HPI - Arrhythmia/Palpitations General Chief Complaint: Arrhythmia/Palpitations <Malka Camilo PA-C - Last Filed: 07/23/22 16:50> Stated Complaint: tachycardia, from cancer center <Malka Camilo PA-C - Last Filed: 07/23/22 16:50> Time Seen by Provider: 07/23/22 14:43 <Malka Camilo PA-C - Last Filed: 07/23/22 16:50> History of Present Illness HPI narrative: Patient is 77-year-old female with history of CLL, colon cancer, follows with Dr. Mcmanus, currently on chemo, pulmonary emboli on Eliquis, here due to elevated heart rate. Patient states that she was having her pump removed today at Dr. Mcmanus's office, started having palpitations and it was noted that her heart rate was in the 140s. Patient has been having these palpitations for the past 3 months and has noted that her resting heart rate is in the 130s and 140s at her baseline. She denies any chest pain, but does report shortness of breath with minimal exertion. She has cardiology follow-up soon for these palpitations. Denies syncope, leg swelling, blood in her stool. <Malka Camilo PA-C - Last Filed: 07/23/22 16:50> Related Data Home Medications: Home Medications Medication Instructions Recorded Confirmed cholecalciferol (vitamin D3) 100 100 mcg PO DAILY 10/21/21 07/21/22 mcg (4,000 unit) tablet cyanocobalamin (vitamin B-12) 2,500 mcg PO DAILY 10/21/21 07/21/22 2,500 mcg tablet ferrous sulfate 325 mg (65 mg 325 mg PO BID 04/28/22 07/21/22 iron) capsule,extended release potassium chloride 10 mEq 10 meq PO DIRECTED 04/29/22 07/21/22 capsule,extended release <BLANCHE Chilel Last Filed: 07/23/22 16:50> Allergies/Adverse Reactions: Allergies Allergy/AdvReac Type Severity Reaction Status Date / Time No Known Allergies Allergy Verified 07/23/22 14:20 <Malka Camilo PA-C - Last Filed: 07/23/22 16:50> Review of Systems Review of Systems: Gen.: Denies fevers or chills Eyes: Denies eye pain or visual change ENT: Denies congestion Respiratory: Reports shortness of breath CV: Reports palpitations GI: Denies abdominal pain nausea, emesis or diarrhea denies burning, urgency, frequency or hematuria Musculoskeletal: Denies back pain or muscle pain Neuro: Denies numbness, tingling, weakness or focal weakness Skin: Denies rash Except as documented, all other systems reviewed and negative <Malka Camilo PA-C - Last Filed: 07/23/22 16:50> [facility] Past Medical History Medical History: Medical History Bilateral deep vein thromboses (03/2022) Chronic anemia Chronic lymphocytic leukemia Hypertension Metastatic colon cancer to liver Osteoarthritis Pulmonary embolism on right (03/2022) Vitamin B12 deficiency Vitamin D deficiency <Malka Camilo PA-C - Last Filed: 07/23/22 16:50> Surgical History Surgical History: Surgical History History of cataract extraction with lens replacement History of liver biopsy Pathology showed carcinoma, compatible with colon primary. History of tonsillectomy History of tubal ligation <Malka Camilo PA-C - Last Filed: 07/23/22 16:50> Family History Family History: Family History Mother Hypertension Father Asthma Sibling Hypertension Heart disease <Malka Camilo PA-C - Last Filed: 07/23/22 16:50> Social History Social History: Social History Social History: Surrogate medical decision maker: Madan Skip, spouse. Code status: Full code. Smoking packs per day: 1 Smoking cigarettes per day: 20.0 Years smoked: 45 Smoking pack-years: 45.00 Smoking status: Former smoker Tobacco type: cigarettes
--- NOTE | 2022-07-23 14:59 | PC.NURSE ---
Port was accessed at the cancer treatment center and was left in place. Port flushes and has blood return.
[2022-07-23 15:11] LABS: Mean Corpuscular HGB Conc 30.4 g/dl (32-36); Mean Corpuscular Hemoglobin 30.2 pg (26-34); Mean Corpuscular Volume 99.1 fl (80-100); Mean Platelet Volume 9.5 fl (7.4-10.4); Platelet Count Result 394 k/mm3 (150-375); Red Blood Count 2.32 M/mm3 (4.2-5.4); Red Cell Distribution Width 17.1 % (11.5-14.5); White Blood Count 11.5 K/mm3 (4.5-10.0)
[2022-07-23 15:21] LABS: Lactic Acid Reflex 3.5 mmol/L (0.7-2.0)
[2022-07-23 15:22] LABS: INR 1.4; Prothrombin Time 16.9 Seconds (11.1-14.7)
[2022-07-23 15:23] LABS: Partial Thromboplastin Time 32.5 SECONDS (22.3-36.8)
[2022-07-23 15:26] LABS: Alanine Aminotransferase 22 U/L (6-35); Albumin Level 3.1 g/dL (3.5-5.1); Alkaline Phosphatase 140 U/L (38-126); Anion Gap 8 mmol/L (8-16); Aspartate Amino Transferase 55 U/L (14-36); Bilirubin,Total 0.6 mg/dL (0.2-1.3); Blood Urea Nitrogen 15 mg/dL (7-17); Calcium 8.6 mg/dL (8.4-10.2); Carbon Dioxide 23 mmol/L (22-30); Chloride 106 mmol/L (98-107); Estimated CRCL calculation 59 ml/min; Estimated Glomerular Filt Rate > 60; Glucose 124 mg/dL (65-110); Potassium 3.8 mmol/L (3.4-5.0); Sodium 137 mmol/L (137-145)
[2022-07-23 15:32] LABS: Troponin I < 0.012 ng/mL (0.000-0.034)
[2022-07-23] MEDS: LACTATED RINGERS 1,000 ML 999 ML IV CONT (15:33)
[2022-07-23 15:34] LABS: CRP 11.8 mg/dL (<1.0)
[2022-07-23 15:35] LABS: Appearance Urine Cloudy (Clear); Bacteria Urine Rare /hpf; Bilirubin Urine Negative (Negative); Blood Urine Negative (Negative); Color Urine Dark Yellow (Yellow); Glucose Urine UA Negative (Negative); Ketones Urine Negative (Negative); Leukocyte Esterase Ur Negative LEU/UL (Negative); Nitrate Urine Negative (Negative); Non Pathogenic Casts 0-2; Protein Urine 1+ mg/dL (Negative); RBC Urine 0-2 /hpf (0-2); Specific Grav Ur 1.024 (1.001-1.035); Squamous Epithelial Cell Urine Moderate /hpf (Few); WBC Urine 0-5 /hpf; pH Urine 5.5 (5.0-9.0)
[2022-07-23 15:43] LABS: Add Urine Microscopic? YES
[2022-07-23 16:18] LABS: Lymphocytes Absolute Manual 1.38 K/mm3 (1.1-4.5); Monocytes Absolute Manual 0.11 K/mm3 (0.1-0.90); Monocytes Percent Manual 1 % (3-9); Neutrophils Percent Manual 87 % (46-73); Platelet Estimate Increased (Adequate); Total Cells Counted 100
[2022-07-23 16:19] LABS: Anisocytosis 2+ (NORMAL); Hypochromasia 1+ (NORMAL); Schistocytes None Seen (NORMAL)
--- NOTE | 2022-07-23 16:45 | PM.IMHP ---
H&P: HPI History of Present Illness Date/Time: 07/23/22 16:45 Chief Complaint: Arrhythmia Narrative: This is a 77-year-old female patient who has a history of CLL. Patient recently had a GI bleed and had a colonoscopy and was found have colon cancer. The patient is currently all cultures growing chemotherapy now. The patient had her chemo pump taken off today. She has a history of PE and is on Eliquis. The patient had palpitations today and was noted to have a heart rate in the 140s. The patient has also been very fatigued and short of breath. She denies any blood in her stool. Her H&H is 7.0 in 23.0. Blood transfusion has been ordered for the patient. Patient is currently on room air. Patient was started on IV fluids. The patient is being admitted to observation as on the date of service of 07/23/2022. Review of Systems Review of Systems: All systems reviewed & are unremarkable except as noted in HPI and below Constitutional: Constitutional: Reports as per HPI and Reports no additional constitutional complaints Eyes: Eyes: Reports as per HPI and Reports no additional eye complaints ENT: Reports system reviewed and no additional complaints, except as documented and Reports Normal hearing present Cardiovascular: Cardiovascular: Reports no additional cardiovascular complaints Respiratory: Respiratory: Reports no additional respiratory complaints and Reports no additional respiratory complaints Gastrointestinal: Gastrointestinal: Reports as per HPI and Reports no additional gastrointestinal complaints Musculoskeletal: Musculoskeletal: Reports no additional musculoskeletal complaints Integumentary/Breasts: Skin/Breast: Reports system reviewed and no additional complaints, except as docu and Reports as per HPI Neurologic: Reports system reviewed and no additional complaints, except as documented, Reports as per HPI and Reports Normal hearing present Psychiatric: Psychiatric: Reports no additional psychiatric complaints and Reports as per HPI Endocrine: Endocrine: Reports no additional endocrine complaints Hematologic/Lymphatic: Hematologic/Lymphatic: Reports no additional hematologic/lymphatic complaints Allergic/Immunologic: Allergic/Immunologic: Reports no additional allergic/immunologic complaints [facility] Past Medical History Medical History (Updated 07/23/22 @ 20:41 by Roselia Barakat NP) Bilateral deep vein thromboses (03/2022) Chronic anemia Chronic lymphocytic leukemia Hypertension Metastatic colon cancer to liver Osteoarthritis Port-A-Cath in place Pulmonary embolism on right (03/2022) Vitamin B12 deficiency Vitamin D deficiency Surgical History Surgical History History of cataract extraction with lens replacement History of liver biopsy Pathology showed carcinoma, compatible with colon primary. History of tonsillectomy History of tubal ligation Family History Family History Mother Hypertension Father Asthma Sibling Hypertension Heart disease Social History Social History (Updated 07/23/22 @ 20:40 by Roselia Barakat NP) Social History: The patient had 4 children and 1 has passed. Surrogate medical decision maker: Madan CagleSkip, spouse. Code status: Full code. Smoking packs per day: 1 Smoking cigarettes per day: 20.0 Years smoked: 45 Smoking pack-years: 45.00 Smoking status: Former smoker Tobacco type: cigarettes Alcohol intake: never Substance use: never Substance use type: does not use Lack of Transportation: No Lack of Food: Never True Current Housing: I Have Housing Concerned About Future Housing: No Difficulty Paying Gas/Electric Bills: No Difficulty Paying for Meds: No Currently Unemployed: No Education: High School Diploma/GED Difficulty w/ Childcare or Family Care: No Living arrangements: with family
[2022-07-23] MEDS: SODIUM CHLORIDE 0.9% IV 250 ML 30 ML IV CONT (16:54)
--- NOTE | 2022-07-23 17:44 | ADMGEN ---
This patient, Cassandra Valdivia, was admitted to Medical Room 247-. Patient/family oriented to hospital policies and general routines including ID bracelet, bed and alarms, visiting hours, pain management, procedures, bathroom and other care routines, personal items, smoking policy, room service/diet, and visiting hours. Information on how to activate the Rapid Response Team has been discussed. Patient/Family are encouraged to report perceived risks to care and to ask questions if they do not understand what they are told or what they should do.
[2022-07-23 18:09] LABS: Reflex Lactic Acid Yes or No Add Lactic
[2022-07-23 20:04] LABS: Lactic Acid 2.8 mmol/L (0.7-2.0)
[2022-07-23 21:05] LABS: Hematocrit 24.4 % (37.0-47.0); Hemoglobin 7.5 g/dL (12.0-15.0)
[2022-07-23] MEDS: APIXABAN 2.5 MG TABLET PO (21:43)
[2022-07-23] MEDS: POTASSIUM CHLORIDE 10 MEQ TABLET.ER PO (21:43)
[2022-07-24] VITALS (9 sets, daily range): BP systolic 101–117; BP diastolic 48–52; PULSE 71–723; RESP 16–18; TEMP 36.1–37.1; O2SAT 98–100; BMI 25.7
[2022-07-24] MEDS: LACTATED RINGERS 1,000 ML 125 ML IV CONT ×2 (05:33→15:16)
[2022-07-24 07:12] LABS: Hematocrit 25.1 % (37.0-47.0); Hemoglobin 7.8 g/dL (12.0-15.0); Mean Corpuscular HGB Conc 31.1 g/dl (32-36); Mean Corpuscular Volume 96.5 fl (80-100); Mean Platelet Volume 9.4 fl (7.4-10.4); Platelet Count Result 198 k/mm3 (150-375); Red Cell Distribution Width 17.3 % (11.5-14.5); White Blood Count 5.2 K/mm3 (4.5-10.0)
[2022-07-24 07:22] LABS: Lactic Acid Reflex 0.8 mmol/L (0.7-2.0)
[2022-07-24 07:24] LABS: Magnesium 1.9 mg/dL (1.6-2.3)
[2022-07-24 08:20] LABS: Anisocytosis 1+ (NORMAL); Band Neutrophils Percent 1 % (0-6); Lymphocytes Absolute Manual 1.71 K/mm3 (1.1-4.5); Lymphocytes Percent Manual 33 % (18-44); Monocytes Absolute Manual 0.05 K/mm3 (0.1-0.90); Monocytes Percent Manual 1 % (3-9); Neutrophils Absolute Manual 3.43 K/mm3 (1.7-7.2); Neutrophils Percent Manual 65 % (46-73); Platelet Estimate Adequate (Adequate); Total Cells Counted 100
[2022-07-24 08:21] LABS: Schistocytes None Seen (NORMAL)
[2022-07-24 08:37] LABS: Thyroid Stimulating Hormone Reflex 0.767 uIU/mL (0.465-4.68)
[2022-07-24] MEDS: CYANOCOBALAMIN 500 MCG TABLET PO (08:44)
[2022-07-24] MEDS: CYANOCOBALAMIN 1,000 MCG TABLET 2000 MCG PO (08:44)
[2022-07-24] MEDS: FERROUS SULFATE 324 MG TABLET PO ×2 (08:44→17:20)
[2022-07-24] MEDS: POTASSIUM CHLORIDE 20 MEQ TABLET PO (08:45)
[2022-07-24] MEDS: CHOLECALCIFEROL 1,000 UNITS TABLET 4000 UNITS PO (08:45)
[2022-07-24] MEDS: APIXABAN 2.5 MG TABLET PO ×2 (08:45→21:05)
[2022-07-24 11:00] LABS: Hematocrit 24.5 % (37.0-47.0); Hemoglobin 7.7 g/dL (12.0-15.0)
--- NOTE | 2022-07-24 12:38 | PDONCCN ---
HPI - Date of Consult Date/Time: 07/24/22 12:38 Requesting Physician: Alvin Cheung MD Primary Care Provider: Chente Whiteside MD - Consult Narrative Reason for consult: Metastatic colon cancer Narrative: Cassandra Valdivia is a 77 year old female with history of metastatic colon cancer status post liver biopsy done in March 2022. Patient is currently on chemotherapy with FOLFOX regimen and received cycle 4. Patient came into the office to remove the infusional 5 FU pump and noticed to have tachycardia and palpitation. She denies any chest pain. She was quite tired and fatigued. She denies any diarrhea. Labs showed hemoglobin of 7. She received 1 unit of packed red blood cell. She is feeling slightly better. She has no previous history of atrial fibrillation. She is feeling better after the blood transfusion today. Review of Systems - Review of Systems All systems reviewed & are unremarkable except as noted in HPI and bel - Neurologic Reports system reviewed and no additional complaints, except as documented, Reports hearing normal [facility] Medical History: Medical History (Last Updated 07/23/22 @ 20:41 by Roselia Barakat NP) Bilateral deep vein thromboses Onset Date: 03/2022 Chronic anemia Chronic lymphocytic leukemia Hypertension Metastatic colon cancer to liver Osteoarthritis Port-A-Cath in place Pulmonary embolism on right Onset Date: 03/2022 Vitamin B12 deficiency Vitamin D deficiency Surgical History: Surgical History (Last Reviewed 07/23/22 @ 20:39 by Roselia Barakat NP) History of cataract extraction with lens replacement History of liver biopsy Pathology showed carcinoma, compatible with colon primary. History of tonsillectomy History of tubal ligation Family History: Family History (Last Reviewed 07/23/22 @ 20:39 by Roselia Barakat NP) Mother Hypertension Father Asthma Sibling Hypertension Heart disease - Social History Social History: Social History (Last Updated 07/23/22 @ 20:40 by Roselia Barakat NP) Alcohol Use: Alcohol intake: never Substance Use: Substance use: never Substance use type: does not use Others: Spiritual care concerns: No Living Arrangements: Living arrangements: with family Oppucation/Education: Occupation/Education: retired Smoking Status: Smoking status: Former smoker Tobacco type: cigarettes Smoking Pack-years: Smoking packs per day: 1 Smoking cigarettes per day: 20.0 Years smoked: 45 Smoking pack-years: 45.00 Social Determinants of Health: Has the Lack of Transportation Kept You From Medical Appointments or From Getting Medications?: No Within the Past 12 Months, Were You Worried Whether Your Food Would Run Out Before You Got Money to Buy More?: Never True What is Your Housing Situation Today?: I Have Housing Are You Worried That in the Next 2 Months, You May Not Have Your Own Housing to Live In?: No Do You Have Trouble Paying Your Heating Or Electricity Bill?: No Do You Have Trouble Paying For Medicines?: No Are You Currently Unemployed and Looking for Work?: No Highest Level of Education Completed: High School Diploma/GED Do You Have Trouble With Childcare or the Care of a Family Member?: No Exam - Vital Signs Vital Signs - 24 hr 07/23/22 14:17 07/23/22 14:55 07/23/22 14:55 Temperature 36.6 C Pulse Rate 129 H 118 H Respiratory Rate 20 Blood Pressure 91/68 L Pulse Oximetry 100 100 Oxygen Delivery Room Air Room Air 07/23/22 16:54 07/23/22 17:10 07/23/22 15:00 Temperature 37.0 C 36.8 C Pulse Rate 97 95 112 H Respiratory Rate 20 18 16 Blood Pressure 100/60 113/41 L 104/56 L Pulse Oximetry 100 100 100 Oxygen Delivery 07/23/22 17:23 07/23/22 17:00 07/23/22 18:10 Temperature 37.1 C Pulse Rate 91 94 106 H Respiratory Rate 18 20 18 Blood Pressure 110/62 98/47
--- NOTE | 2022-07-24 13:28 | PC.NURSE ---
On 07/24/22, the student, [Sheryl Aguila], provided care and completed [facility] documentation on this patient. I have reviewed the student's documentation and agree with the findings.
[2022-07-24] MEDS: CENTRAL LINE FLUSH 10 ML IV PUSH ×2 (13:43→21:05)
--- NOTE | 2022-07-24 15:21 | PM.IMPN ---
Progress Note: A&P Assessment and Plan (1) Chronic anemia: Code(s): D64.9 - Anemia, unspecified Status: Acute Assessment and Plan: The patient is going through chemotherapy and had her chemotherapy pump removed on 07/23/2022. Consult Dr. Mcmanus who is her oncologist Hgb 7.7 with Hct 24.5 today. continue to monitor lab work. Her anemia has worsened most likely related to her chemotherapy. (2) Metastatic colon cancer to liver: Code(s): C18.9 - Malignant neoplasm of colon, unspecified; C78.7 - Secondary malignant neoplasm of liver and intrahepatic bile duct Status: Acute Assessment and Plan: Dr. Mcmanus and has been consulted. (3) Pulmonary embolism on right: Onset Date: 03/2022 Code(s): I26.99 - Other pulmonary embolism without acute cor pulmonale Status: Acute Assessment and Plan: Continue with Eliquis Stool for occult blood positive, but patient also on Ferrous sulfate BID which can give a false positive. (4) Sinus tachycardia: Code(s): R00.0 - Tachycardia, unspecified Status: Acute Assessment and Plan: Could be related to her anemia. Improved today with HR in the 80s. Denies any further racing heart or palpitations. Subjective Date/time seen: 07/24/22 1000 Review of Systems Constitutional: Constitutional: Reports fatigue and Reports lethargy ENT: Reports system reviewed and no additional complaints, except as documented Cardiovascular: Comments: Denies any c/o CP, lightheadedness, dizziness today. Respiratory: Comments: Denies any SOB, cough, dyspnea on exertion or paroxysmal nocturnal dyspnea. Gastrointestinal: Comments: Denies any abdominal pain, nausea, vomiting, diarrhea or constipation. Denies any melena or hematochezia. Genitourinary: Comments: Denies any urinary s/s. Musculoskeletal: Comments: Denies any weakness, difficulty moving any extremity, or pain. Denies any calf tenderness or claudication. Neurologic: Comments: Denies any ROCHA, blurred vision, difficulty with coordination Psychiatric: Psychiatric: Reports no additional psychiatric complaints Exam Narrative: Pt is alert and oriented x 4 and appears in no acute distress. States she is feeling better than when she came in. Const: General: comfortable and no acute distress HENMT: Face/Nose/Sinus: Normal nares present Mouth: Yes moist mucous membranes Eyes: General: appearance normal, both eyes and all related structures Sclera: sclerae normal Neck: Neck: supple Resp: Effort & Inspection: normal respiratory effort Auscultation: clear to auscultation bilaterally Cardio: Rate: regular rate Rhythm: regular rhythm Other: No murmur, gallop, or rub appreciated GI: Other: Abdomen soft, nondistended, nontender to palpation, bowel sounds present x 4 quadrants. Skin: General skin exam: normal color and no rashes or lesions noted Neuro: Other: Pt alert and oriented x 4. Moving all extremities equally. No slurred speech or memory loss noted. Extrem: General: normal to inspection Other: Bilateral pedal and posterior tibial pulses palpated and equal. No appreciable edema noted. Psych: Mental Status: mental status grossly normal Affect: normal affect Objective Data Vital Signs Vital Signs: Vital Signs - 24 hr 07/23/22 16:54 07/23/22 17:10 07/23/22 17:23 Temperature 98.6 F 98.3 F Pulse Rate 97 95 91 Respiratory Rate 20 18 18 Blood Pressure 100/60 113/41 L 110/62 Pulse Oximetry 100 100 100 Oxygen Delivery 07/23/22 17:00 07/23/22 18:10 07/23/22 17:27 Temperature 98.7 F Pulse Rate 94 106 H 112 H Respiratory Rate 20 18 20 Blood Pressure 98/47 L 114/54 L Pulse Oximetry 100 100 100 Oxygen Delivery 07/23/22 19:10 07/23/22 18:34 07/23/22 21:23 Temperature 97.8 F 100.5 F H Pulse Rate 88 107 H 59 L Respiratory Rate 18 20 Blood Pressure 97/41 L 93/49 L Pulse Oximetry 100 100 Oxygen Delivery 07/23/22
[2022-07-24 15:30] LABS: Hematocrit 23.3 % (37.0-47.0); Hemoglobin 7.5 g/dL (12.0-15.0)
[2022-07-24] MEDS: POTASSIUM CHLORIDE 10 MEQ TABLET.ER PO (17:20)
[2022-07-25] VITALS (9 sets, daily range): BP systolic 104–115; BP diastolic 57–72; PULSE 71–116; RESP 16–20; TEMP 36.7–37.2; O2SAT 91–100
[2022-07-25] MEDS: LACTATED RINGERS 1,000 ML 75 ML IV CONT (03:36)
[2022-07-25 05:23] LABS: Basophils Percent Auto 0.2 % (0.2-1.2); Eosinophils Percent Auto 0.2 % (0-4.4); Hematocrit 23.6 % (37.0-47.0); Hemoglobin 7.5 g/dL (12.0-15.0); Immature Granulocyte Absolute 0.05 K/mm3 (0.00-0.031); Immature Granulocyte Percent A 1.1 % (0-0.5); Lymphocytes Percent Auto 12.6 % (18.3-44.2); Mean Corpuscular HGB Conc 31.8 g/dl (32-36); Mean Corpuscular Hemoglobin 29.4 pg (26-34); Mean Corpuscular Volume 92.5 fl (80-100); Mean Platelet Volume 9.6 fl (7.4-10.4); Monocytes Absolute Auto 0.1 K/mm3 (0.1-0.6); Monocytes Percent Auto 1.5 % (2.6-8.5); Neutrophils Percent Auto 84.4 % (45.5-73.1); Platelet Count Result 199 k/mm3 (150-375); Red Blood Count 2.55 M/mm3 (4.2-5.4); Red Cell Distribution Width 16.5 % (11.5-14.5); White Blood Count 4.8 K/mm3 (4.5-10.0)
[2022-07-25 05:49] LABS: Anion Gap 2 mmol/L (8-16); Blood Urea Nitrogen 11 mg/dL (7-17); Calcium 8.2 mg/dL (8.4-10.2); Carbon Dioxide 26 mmol/L (22-30); Chloride 102 mmol/L (98-107); Estimated CRCL calculation 59 ml/min; Estimated Glomerular Filt Rate > 60; Glucose 95 mg/dL (65-110); Potassium 3.7 mmol/L (3.4-5.0); Sodium 130 mmol/L (137-145)
[2022-07-25 06:39] LABS: Hypochromasia 2+ (NORMAL); Ovalocytes 1+ (NORMAL)
[2022-07-25 06:40] LABS: Schistocytes None Seen (NORMAL)
[2022-07-25 07:32] LABS: Platelet Estimate Adequate (Adequate)
[2022-07-25] MEDS: FERROUS SULFATE 324 MG TABLET PO ×2 (09:33→18:11)
[2022-07-25] MEDS: POTASSIUM CHLORIDE 20 MEQ TABLET PO (09:33)
[2022-07-25] MEDS: CYANOCOBALAMIN 500 MCG TABLET PO (09:33)
[2022-07-25] MEDS: APIXABAN 2.5 MG TABLET PO ×2 (09:33→21:02)
[2022-07-25] MEDS: CHOLECALCIFEROL 1,000 UNITS TABLET 4000 UNITS PO (09:34)
[2022-07-25] MEDS: CYANOCOBALAMIN 1,000 MCG TABLET 2000 MCG PO (09:34)
--- NOTE | 2022-07-25 11:36 | PM.CNCAR ---
Assessment and Plan Assessment and plan (1) Sinus tachycardia: Code(s): R00.0 - Tachycardia, unspecified Status: Acute Plan this is a 77-year-old lady unfortunately with metastatic colon carcinoma who entered the hospital with some shortness of breath Tachycardia and palpitations. When she was very tachycardic her electrocardiogram demonstrates sinus rhythm with frequent APCs but I do not see any evidence of atrial fibrillation. That being the case I do not have any additional cardiac recommendations at this time. Dawood Arora MD [facility] History of Present Illness History of Present Illness Consult date/time: 07/25/22 11:36 Reason For Visit: symptomatic anemia Narrative: This is a 77-year-old woman I am seeing at the request of the hospitalist today because of atrial fibrillation. She is unknown to me prior to this consultation. She says that she is not known to have any cardiac problems prior to this. She is a lady who has a history of prior diagnosis of CLL as well as unfortunately the recent diagnosis of metastatic colon cancer. She is being treated with chemotherapy and managed by Dr. Mcmanus She came into the hospital yesterday for symptoms of some shortness of breath and palpitations. She was tachy the 140s and I have been asked to see her because of atrial fibrillation. I reviewed her record, the electrocardiograms as well as all the rhythm strips that are on her chart. The patient's electrocardiograms and telemetry strips do not appear to show any evidence of atrial fibrillation. The electrocardiogram I believe that creates concerns does demonstrate very rapid sinus tachycardia with ectopic activity but we do see P waves on all the electrocardiograms as well as all of the rhythm strips. She reports no prior history of any cardiac problem she states she has a prior history of hypertension and some dyslipidemia. She reports that when she was found to have colon cancer a couple of months ago her blood pressure was low she was severely anemic and her antihypertensives were discontinued at that time. She does have a history of of DVTs at the time of diagnosis and she is anticoagulated with apixaban. Hemoglobin on admission was just over 7 g with a hematocrit of 23. Review of Systems Constitutional: Constitutional: Reports lethargy Eyes: Eyes: Reports no additional eye complaints ENT: Reports system reviewed and no additional complaints, except as documented Cardiovascular: Cardiovascular: Reports palpitations Respiratory: Respiratory: Reports dyspnea Gastrointestinal: Gastrointestinal: Reports no additional gastrointestinal complaints Musculoskeletal: Musculoskeletal: Reports no additional musculoskeletal complaints Integumentary/Breasts: Skin/Breast: Reports system reviewed and no additional complaints, except as docu Neurologic: Reports system reviewed and no additional complaints, except as documented Endocrine: Endocrine: Reports no additional endocrine complaints Hematologic/Lymphatic: Hematologic/Lymphatic: Reports no additional hematologic/lymphatic complaints Allergic/Immunologic: Allergic/Immunologic: Reports no additional allergic/immunologic complaints [facility] Past Medical History Medical History (Updated 07/24/22 @ 12:42 by Sj Mcmanus MD) Bilateral deep vein thromboses (03/2022) Chronic anemia Chronic lymphocytic leukemia Hypertension Metastatic colon cancer to liver Osteoarthritis Port-A-Cath in place Pulmonary embolism on right (03/2022) Vitamin B12 deficiency Vitamin D deficiency Surgical History Surgical History (Updated 07/24/22 @ 12:42 by Sj Mcmanus MD) History of cataract extraction with lens replacement History of liver biopsy Pathology showed carcinoma, compatible with colon primary. History of tonsillectomy History of tubal ligation Family History Family History Mother Paul
[2022-07-25] MEDS: CENTRAL LINE FLUSH 10 ML IV PUSH ×2 (14:40→21:02)
--- NOTE | 2022-07-25 16:24 | PM.IMPN ---
Progress Note: A&P Assessment and Plan (1) Chronic anemia: Code(s): D64.9 - Anemia, unspecified Status: Acute Assessment and Plan: The patient is going through chemotherapy and had her chemotherapy pump removed on 07/23/2022. Consult Dr. Mcmanus who is her oncologist Hgb 7.5 today, which is stable. continue to monitor lab work. Her anemia has worsened most likely related to her chemotherapy. (2) Metastatic colon cancer to liver: Code(s): C18.9 - Malignant neoplasm of colon, unspecified; C78.7 - Secondary malignant neoplasm of liver and intrahepatic bile duct Status: Acute Assessment and Plan: Dr. Mcmanus and has been consulted. Will follow as an outpatient. (3) Pulmonary embolism on right: Onset Date: 03/2022 Code(s): I26.99 - Other pulmonary embolism without acute cor pulmonale Status: Acute Assessment and Plan: Continue with Eliquis Stool for occult blood positive, but patient also on Ferrous sulfate BID which can give a false positive. (4) Sinus tachycardia: Code(s): R00.0 - Tachycardia, unspecified Status: Acute Assessment and Plan: Was documented to be in atrial fibrillation on arrival to the ED. Pt is on Eliquis at home. EKG performed on 07/23/2022 showed pt was back in NSR at a controlled rate. Will consult cardiology since patient has never had a documented case of AF. Subjective Date/time seen: 07/25/22 0950 Review of Systems Review of Systems: All systems reviewed & are unremarkable except as noted in HPI and below Constitutional: Constitutional: Reports as per HPI Cardiovascular: Cardiovascular: Reports as per HPI Comments: Denies any Cp, palpitation, or racing heart sensation. Exam Const: General: comfortable and no acute distress HENMT: Face/Nose/Sinus: Normal nares present Mouth: Yes moist mucous membranes Eyes: General: appearance normal, both eyes and all related structures Neck: Neck: supple and no JVD Resp: Effort & Inspection: normal respiratory effort Auscultation: clear to auscultation bilaterally Cardio: Rate: regular rate Rhythm: regular rhythm Other: No murmur, rub, or gallop noted GI: Other: Abdomen soft, nondistended, nontender to palpation with bowel sounds present x 4 quadrants. Skin: General skin exam: normal color and no rashes or lesions noted Neuro: Other: Alert and oriented x 4. Answers questions and follows commands appropriately. Moves all extremities equally. Extrem: General: normal to inspection Psych: Mental Status: mental status grossly normal Affect: normal affect Objective Data Vital Signs Vital Signs: Vital Signs - 24 hr 07/24/22 21:33 07/24/22 20:00 07/24/22 20:00 Temperature 97 F L Pulse Rate 71 71 723 H Respiratory Rate 18 18 Blood Pressure 117/52 L Pulse Oximetry 99 99 Oxygen Delivery Room Air 07/25/22 00:00 07/25/22 04:14 07/25/22 04:00 Temperature 98.7 F Pulse Rate 71 95 116 H Respiratory Rate 20 Blood Pressure 109/57 L Pulse Oximetry 91 Oxygen Delivery 07/25/22 08:00 Temperature Pulse Rate Respiratory Rate Blood Pressure Pulse Oximetry Oxygen Delivery Room Air Intake/Output Intake/Output: Intake & Output 07/22/22 07/23/22 07/24/22 07/25/22 23:59 23:59 23:59 23:59 Intake Total 1350 2320 1890 Output Total 1 Balance 1350 2320 1889 Meds/Results Medications: Active Medications Generic Name Dose Route Start Last Admin Trade Name Freq PRN Reason Stop Dose Admin Hydrocodone Bitart/Acetaminophen 1 tab 07/23/22 16:14 Hydrocodone/Acetaminophen (*Crx) 5-325 Mg Tablet PO Q4H PRN Pain Rated 4-6 Apixaban 2.5 mg 07/23/22 21:00 07/25/22 09:33 Apixaban 2.5 Mg Tablet PO 2.5 mg Q12HR CORTEZ Administration Cyanocobalamin 500 mcg 07/24/22 09:00 07/25/22 09:33 Cyanocobalamin 500 Mcg Tablet PO 500 mcg DAILY CORTEZ Administration Cyanocobalamin 2,000 mcg 07/24/22
[2022-07-25 16:40] LABS: Eosinophils Percent Auto 0.2 % (0-4.4); Hemoglobin 7.5 g/dL (12.0-15.0); Immature Granulocyte Absolute 0.06 K/mm3 (0.00-0.031); Immature Granulocyte Percent A 1.2 % (0-0.5); Lymphocytes Absolute Auto 0.71 K/mm3 (0.9-3.2); Lymphocytes Percent Auto 14.1 % (18.3-44.2); Mean Corpuscular HGB Conc 31.3 g/dl (32-36); Mean Corpuscular Hemoglobin 29.8 pg (26-34); Mean Corpuscular Volume 95.2 fl (80-100); Mean Platelet Volume 9.3 fl (7.4-10.4); Monocytes Absolute Auto 0.1 K/mm3 (0.1-0.6); Monocytes Percent Auto 1.6 % (2.6-8.5); Neutrophils Absolute Auto 4.2 K/mm3 (1.3-6.7); Neutrophils Percent Auto 82.9 % (45.5-73.1); Platelet Count Result 183 k/mm3 (150-375); Red Blood Count 2.52 M/mm3 (4.2-5.4); Red Cell Distribution Width 16.4 % (11.5-14.5)
[2022-07-25 16:44] LABS: Anion Gap 1 mmol/L (8-16); Blood Urea Nitrogen 11 mg/dL (7-17); Calcium 8.4 mg/dL (8.4-10.2); Carbon Dioxide 28 mmol/L (22-30); Chloride 101 mmol/L (98-107); Estimated CRCL calculation 59 ml/min; Estimated Glomerular Filt Rate > 60; Glucose 101 mg/dL (65-110); Potassium 4.1 mmol/L (3.4-5.0); Sodium 130 mmol/L (137-145)
[2022-07-25] MEDS: POTASSIUM CHLORIDE 10 MEQ TABLET.ER PO (18:12)
[2022-07-26] VITALS: PULSE 74
[2022-07-26 04:00] VITALS: PULSE 80
[2022-07-26] MEDS: CENTRAL LINE FLUSH 10 ML IV PUSH (05:37)
[2022-07-26 06:00] VITALS: BP 107/58; PULSE 70; RESP 20; TEMP 37; O2SAT 100
[2022-07-26 06:24] LABS: Basophils Percent Auto 0.5 % (0.2-1.2); Eosinophils Percent Auto 0.5 % (0-4.4); Hematocrit 25.5 % (37.0-47.0); Immature Granulocyte Absolute 0.06 K/mm3 (0.00-0.031); Immature Granulocyte Percent A 1.5 % (0-0.5); Lymphocytes Absolute Auto 0.62 K/mm3 (0.9-3.2); Lymphocytes Percent Auto 15.5 % (18.3-44.2); Mean Corpuscular HGB Conc 31.4 g/dl (32-36); Mean Corpuscular Hemoglobin 30.3 pg (26-34); Mean Corpuscular Volume 96.6 fl (80-100); Mean Platelet Volume 9.5 fl (7.4-10.4); Monocytes Absolute Auto 0.1 K/mm3 (0.1-0.6); Neutrophils Absolute Auto 3.2 K/mm3 (1.3-6.7); Platelet Count Result 185 k/mm3 (150-375); Red Blood Count 2.64 M/mm3 (4.2-5.4); Red Cell Distribution Width 16.3 % (11.5-14.5)
[2022-07-26 06:35] LABS: Anion Gap 2 mmol/L (8-16); Blood Urea Nitrogen 11 mg/dL (7-17); Calcium 8.6 mg/dL (8.4-10.2); Carbon Dioxide 28 mmol/L (22-30); Chloride 105 mmol/L (98-107); Estimated CRCL calculation 59 ml/min; Estimated Glomerular Filt Rate > 60; Glucose 98 mg/dL (65-110); Sodium 135 mmol/L (137-145)
[2022-07-26] MEDS: POTASSIUM CHLORIDE 20 MEQ TABLET PO (08:23)
[2022-07-26] MEDS: CYANOCOBALAMIN 500 MCG TABLET PO (08:24)
[2022-07-26] MEDS: CHOLECALCIFEROL 1,000 UNITS TABLET 4000 UNITS PO (08:24)
[2022-07-26] MEDS: CYANOCOBALAMIN 1,000 MCG TABLET 2000 MCG PO (08:24)
[2022-07-26] MEDS: FERROUS SULFATE 324 MG TABLET PO (08:24)
[2022-07-26] MEDS: APIXABAN 2.5 MG TABLET PO (08:24)
--- NOTE | 2022-07-26 10:50 | PM.DS ---
DS: Admitting Diagnosis Discharge Date 07/26/2022 Admitting Diagnosis Arrhythmia DS: Discharge Diagnosis Discharge Diagnosis (1) Chronic anemia: Code(s): D64.9 - Anemia, unspecified Status: Acute Assessment and Plan: The patient is going through chemotherapy and had her chemotherapy pump removed on 07/23/2022. Consult Dr. Mcmanus who is her oncologist Hgb 7.5 today, which is stable. continue to monitor lab work. Her anemia has worsened most likely related to her chemotherapy. (2) Metastatic colon cancer to liver: Code(s): C18.9 - Malignant neoplasm of colon, unspecified; C78.7 - Secondary malignant neoplasm of liver and intrahepatic bile duct Status: Acute Assessment and Plan: Dr. Mcmanus and has been consulted. Will follow as an outpatient. (3) Pulmonary embolism on right: Onset Date: 03/2022 Code(s): I26.99 - Other pulmonary embolism without acute cor pulmonale Status: Acute Assessment and Plan: Continue with Eliquis Stool for occult blood positive, but patient also on Ferrous sulfate BID which can give a false positive. (4) Sinus tachycardia: Code(s): R00.0 - Tachycardia, unspecified Status: Acute Assessment and Plan: Was documented to be in atrial fibrillation on arrival to the ED. Pt is on Eliquis at home. EKG performed on 07/23/2022 showed pt was back in NSR at a controlled rate. Will consult cardiology since patient has never had a documented case of AF. DS: Summary Hospital Course Reason for hospitalization: Arrhythmia Narrative: This is a 77-year-old female patient who has a history of CLL.? Patient recently had a GI bleed and had a colonoscopy and was found have colon cancer.? The patient is currently all cultures growing chemotherapy now.? The patient had her chemo pump taken off today.? She has a history of PE and is on Eliquis.? The patient had palpitations today and was noted to have a heart rate in the 140s.? The patient has also been very fatigued and short of breath.? She denies any blood in her stool.? Her H&H is 7.0 in 23.0.? Blood transfusion has been ordered for the patient.? Patient is currently on room air.? Patient was started on IV fluids. Hospital Course: Upon arrival was documented to be in atrial fibrillation on arrival to the ED.? Pt is on Eliquis at home.? EKG performed on 07/23/2022 showed pt was back in NSR at a controlled rate.? Will consult cardiology since patient has never had a documented case of AF.? ? Patient was seen by Cardiology does not suspect atrial fibrillation most likely patient has sinus tachycardia with APC Patient is clinically stable will discharge patient today Time Spent with Patient Time attestation: Total time spent providing and/or coordinating discharge services: Exam Narrative: Patient is comfortable, NAD HEENT: eyes are clear and none icteric LUNGS:CTA HEART: RR S1S2 ABD: BS+, Soft and nontender Lower extremities: no edema SKIN: nonjaundiced Neuro: grossly intact. DS: Data Data Completed and Pending Labs on day of discharge: Labs from last 24 hours 07/26/22 07/26/22 07/25/22 06:05 05:57 16:21 WBC 4.0 L RBC 2.64 L Hgb 8.0 L Hct 25.5 L MCV 96.6 MCH 30.3 MCHC 31.4 L RDW 16.3 H Plt Count 185 MPV 9.5 Immature Gran % (Auto) 1.5 H Neut % (Auto) 80.0 H Lymph % (Auto) 15.5 L [place] % (Auto) 2.0 L Eos % (Auto) 0.5 Baso % (Auto) 0.5 Lymph # (Auto) 0.62 L [place] # (Auto) 0.1 Eos # (Auto) 0.0 Baso # (Auto) 0.0 Abs Immat Gran (auto) 0.06 H Absolute Neuts (auto) 3.2 Absolute Nucleated RBC 0.0 Nucleated RBC % 0.0 Sodium 135 L 130 L Potassium 4.0 4.1 Chloride 105 101 Carbon Dioxide 28 28 Anion Gap 2 L 1 L BUN 11 11 Creatinine 0.60 L 0.60 L Estim Creat Clear Calc 59 59 Estimated GFR > 60 > 60 Glucose 98 101 Calcium 8.6 8.4 07/25/22 16:21 WBC 5.0 RBC
[2022-07-26] MEDS: HEPARIN SODIUM LOCK FLUSH 500 UNITS/5 ML SYRINGE IV PUSH (12:45)
== END 2022-07-26 13:16 | disposition home or self-care (01) | DRG 811 ==
LOC: ANHED 16:03 → ANH2MED 16:44
PROVIDERS: Emergency Medicine; Nurse Practitioner; Nurse Practitioner Family; Admitting Provider Internal Medicine; Emergency Provider Physician Assistant; PCP Family Medicine; Visit Provider Family Medicine
DX: D64.81 Anemia due to antineoplastic chemotherapy (principal); I26.99 Other pulmonary embolism without acute cor pulmonale; C18.9 Malignant neoplasm of colon, unspecified; C78.7 Secondary malignant neoplasm of liver and intrahepatic bile duct; Z79.01 Long term (current) use of anticoagulants; R00.0 Tachycardia, unspecified; Z87.891 Personal history of nicotine dependence
CPT/HCPCS: 36415; 36430; 71046; 80048; 80053; 81001; 82728; 83605; 83735; 84443; 84484; 85014; 85018; 85025; 85610; 85730; 86140; 86850; 86900; 86901; 86923; 87040; 93005; 96360; 96361; 99213; 99285; A9270; G0378; G0463; J1642; J7050; J7120; P9016

== ENCOUNTER 2022-10-10 14:08 | Outpatient (CLI) | payer MEDICARE, MEDICAID, SELFPAY ==
--- NOTE | ~2022-10-10 | CT_ITS ---
EXAMINATION: CT chest abdomen pelvis w con DATE: 10/10/2022 14:43 INDICATION: Colon cancer metastatic to the liver TECHNIQUE: Transaxial computed tomographic images of the chest, abdomen, and pelvis were obtained aft er the administration of 100 cc of Omnipaque 350 intravenous contrast. The dose-length product (DLP) was 536.08 mGy-cm. Automated exposure control and iterative reconstruction technique were employed. COMPARISON: 06/09/2022,04/07/2022 FINDINGS: CHEST CT: A right internal jugular Port-A-Cath ends with its tip in the distal superior vena cava. There is mil d dependent atelectasis. No pleural effusion or pneumothorax. No pathologically enlarged thoracic lym ph nodes are identified. The heart size is normal. There is a pulmonary embolus in a subsegmental pul monary arterial branch of the left lower lobe. Calcified coronary artery atherosclerosis is noted. Th ere is mild thoracic spondylosis. ABDOMEN/PELVIS CT: There is continued interval enlargement of multiple hepatic metastases. There is necrotic periportal and peripancreatic lymphadenopathy. There is a 1.4 cm subcutaneous soft tissue mass anteriorly in the right upper quadrant (image 129). There is a new 1.8 cm hypoattenuating mass in the lower pole of th e spleen. A stone is present in the nondistended gallbladder. There is a moderate volume of ascites. There is persistent irregular wall thickening of the right colon and cecum with interval worsening. T here is also worsening ileocolic lymphadenopathy. There is an approximately 4.7 x 2.7 cm extraluminal gas and fluid collection anterior to the cecum (image 174). There is calcified atherosclerosis of th e aorta and many of the other arteries. The pancreas, adrenal glands, and kidneys are unremarkable. T here is mild wall thickening of the urinary bladder which could. Due to incomplete distention. Hypera ttenuating material in the urinary bladder may reflect small amount excreted contrast. IMPRESSION: 1. Interval worsening of metastatic disease as evidenced by marked enlargement of innumerable liver m asses, worsened ileocolic lymphadenopathy, developing necrotic peripancreatic and periportal lymphade nopathy, new splenic mass, and development of a subcutaneous mass in right upper quadrant. 2. Development of an approximately 4.7 x 2.7 cm pericecal abscess. 3. Left lower lobe pulmonary embolus. These findings were discussed with Dr. Sj Mcmanus MD at 1615 hours on 10/10/2022. Reviewed, dictated and finalized at location B. IMPRESSION: 1. Interval worsening of metastatic disease as evidenced by marked enlargement of innumerable liver masses, worsened ileocolic lymphadenopathy, developing nec rotic peripancreatic and periportal lymphadenopathy, new splenic mass, and deve lopment of a subcutaneous mass in right upper quadrant. 2. Development of an approximately 4.7 x 2.7 cm pericecal abscess. 3. Left lower lobe pulmonary embolus. These findings were discussed with Dr. Sj Mcmanus MD at 1615 hours on 2022.
== END 2022-10-10 14:09 | disposition home or self-care (01) ==
LOC: ANHIMG 14:09
PROVIDERS: PCP Family Medicine; Visit Provider Internal Medicine Hematology & Oncology
DX: C18.9 Malignant neoplasm of colon, unspecified (principal); C78.7 Secondary malignant neoplasm of liver and intrahepatic bile duct; I26.99 Other pulmonary embolism without acute cor pulmonale
CPT/HCPCS: 71260; 74177; Q9967